=== PATIENT | female | born 1935 | race Caucasian/White ===

== ENCOUNTER 2016-07-28 15:01 | Inpatient (IN) | payer MEDICARE, BC ==
[~2016-07-28] VITALS: Ht 157.5 cm; Wt 51.3 kg
--- NOTE | 2016-07-28 15:31 | ED.ADGEN ---
Past History Past Medical History: Anxiety, Dementia, GERD, Hypertension, UTI, Other Past Surgical History: Other Alcohol Use: None Drug Use: None Adult General HPI HPI Patient is a 81-year-old female presents emergency department for medical clearance prior to admission to the behavioral unit. Patient herself has no medical complaints. Per report, she has had increasingly aggressive and uncooperative behavior at the detention. She is currently being treated for UTI. She has a history of renal insufficiency. She is currently on valproic acid. Review of Systems Review of Systems Constitutional: Denies fever or chills [] Eyes: Denies change in visual acuity, redness, or eye pain [] HENT: Denies nasal congestion or sore throat [] Respiratory: Denies cough or shortness of breath [] Cardiovascular: No additional information not addressed in HPI [] GI: Denies abdominal pain, nausea, vomiting, bloody stools or diarrhea [] : Denies dysuria or hematuria [] Musculoskeletal: Denies back pain or joint pain [] Integument: Denies rash or skin lesions [] Neurologic: Denies headache, focal weakness or sensory changes [] Endocrine: Denies polyuria or polydipsia [] Allergies Allergies Allergies Coded Allergies Type Severity Reaction Last Updated Verified Penicillins Allergy Unknown 07/28/16 Yes Sulfa (Sulfonamide Antibiotics) Allergy Unknown 07/28/16 Yes Physical Exam Physical Exam Constitutional: Well developed, well nourished, no acute distress, non-toxic appearance. [] HENT: Normocephalic, atraumatic, bilateral external ears normal, oropharynx moist, no oral exudates, nose normal. [] Eyes: PERRLA, EOMI, conjunctiva normal, no discharge. [] Neck: Normal range of motion, no tenderness, supple, no stridor. [] Cardiovascular:Heart rate regular rhythm, no murmur [] Lungs & Thorax: Bilateral breath sounds clear to auscultation [] Abdomen: Bowel sounds normal, soft, no tenderness, no masses, no pulsatile masses. [] Skin: Warm, dry, no erythema, no rash. [] Back: No tenderness, no CVA tenderness. [] Extremities: No tenderness, no cyanosis, no clubbing, ROM intact, no edema. [] Neurologic: Alert and oriented X 3, normal motor function, normal sensory function, no focal deficits noted. [] Psychologic: Affect normal, judgement normal, mood normal. [] Current Patient Data Vital Signs Vital Signs Date Time Temp Pulse Resp B/P Pulse Ox O2 Delivery O2 Flow Rate FiO2 07/28/16 15:15 98.7 75 18 97 Room Air Lab Results Laboratory Tests Test 07/28/16 15:35 07/28/16 15:39 07/28/16 15:40 White Blood Count 9.4x10^3/uL (4.0-11.0) Red Blood Count 3.12x10^6/uL (3.50-5.40) L Hemoglobin 9.8g/dL (12.0-15.5) L Hematocrit 29.6% (36.0-47.0) L Mean Corpuscular Volume 95fL (79-100) Mean Corpuscular Hemoglobin 31pg (25-35) Mean Corpuscular Hemoglobin Concent 33g/dL (31-37) Red Cell Distribution Width 13.3% (11.5-14.5) Platelet Count 173x10^3/uL (140-400) Neutrophils (%) (Auto) 64% (31-73) Lymphocytes (%) (Auto) 24% (24-48) Monocytes (%) (Auto) 9% (0-9) Eosinophils (%) (Auto) 3% (0-3) Basophils (%) (Auto) 1% (0-3) Neutrophils # (Auto) 6.0x10^3uL (1.8-7.7) Lymphocytes # (Auto) 2.2x10^3/uL (1.0-4.8) Monocytes # (Auto) 0.8x10^3/uL (0.0-1.1) Eosinophils # (Auto) 0.3x10^3/uL (0.0-0.7) Basophils # (Auto) 0.1x10^3/uL (0.0-0.2) Magnesium Level 1.7mg/dL (1.8-2.4) L Valproic Acid Level < 3mcg/mL (50-100) L Valproic Acid Last Dose Date Unknown Valproic Acid Last Dose Time Unknown POC Hemoglobin 10.2gm/dL POC Hematocrit 30% POC Sodium 132mmol/L (135-145) L POC Potassium 4.0mmol/L (3.5-5.0) POC Chloride 101mmol/L (98-110) POC Total CO2 16mmol/L (23-32) L Anion Gap 20mmol/L (6-14) H POC Blood Urea Nitrogen 43mg/dL (8-26) H POC Creatinine 2.5mg/dL (0.5-1.4) H Glucose Level 75mg/dL (60-99) POC Ionized Calcium (Tari) 1.18mmol/L (1.13-1.32) POC Troponin I 0.01ng/ml (<0.08) EKG EKG EKG interpreted by me, normal sinus rhythm, 60 beats for minute, left axis, no ST segment elevation. [] Radiology/Procedures Radiology/Procedures [] Course & Med Decision Making Course & Med Decision Making Pertinent Labs and Imaging studies reviewed. (See chart for details) The patient's creatinine was about were really expected. Unable to get urine from her while she is here in the department but we do know that she is currently being treated for urinary tract infection. Otherwise, she is cleared medically for admission to the senior behavioral unit. [] Final Impression Final Impression Dementia with behavioral disturbance Urinary tract infection Chronic renal insufficiency [] Problems: Dragon Disclaimer Dragon Disclaimer This electronic medical record was generated, in whole or in part, using a voice recognition dictation system. RICARDO MURCIA MD Jul 28, 2016 15:31
[2016-07-28 15:52] LABS: HEMOGLOBIN ISTAT 10.2 gm/dL
[2016-07-28 16:00] LABS: BASO # 0.1 x10^3/uL (0.0-0.2); BASO % 1 % (0-3); EOS # 0.3 x10^3/uL (0.0-0.7); EOS % 3 % (0-3); HEMATOCRIT 29.6 % (36.0-47.0); HEMOGLOBIN 9.8 g/dL (12.0-15.5); LYMPH # 2.2 x10^3/uL (1.0-4.8); LYMPH % 24 % (24-48); MEAN CORPUSCULAR HEMOGLOBIN 31 pg (25-35); MEAN CORPUSCULAR HGB CONC 33 g/dL (31-37); MEAN CORPUSCULAR VOLUME 95 fL (79-100); MONO # 0.8 x10^3/uL (0.0-1.1); MONO % 9 % (0-9); NEUT % 64 % (31-73); PLATELET COUNT 173 x10^3/uL (140-400); RED BLOOD COUNT 3.12 x10^6/uL (3.50-5.40); RED CELL DISTRIBUTION WIDTH 13.3 % (11.5-14.5); WHITE BLOOD COUNT 9.4 x10^3/uL (4.0-11.0)
[2016-07-28 16:10] LABS: VAL ACID < 3 mcg/mL (50-100)
--- NOTE | 2016-07-28 17:32 | ACF ---
Admission Criteria Forms [facility] Clinical Indications for Admission to Inpatient Care (Place 'X' for any and all applicable criteria): Hospital admission is needed for appropriate care of the patient because of ANY ONE of the following[A] (3)(4)(5): [ ]I. Inpatient behavioral care is needed as indicated by ALL of the following: [ ]a) Treatment is needed because of patient risk due to ANY ONE of the following: [ ]i) Imminent danger to self due to ANY ONE of the following ( 7)(8): [ ]1) Imminent risk for recurrence of a suicide attempt or act of serious self-harm as indicated by ALL of the following: [ ]A. Very recent suicide attempt or deliberate act of serious self-harm [ ]B. Absence of sufficient relief of the action' s precipitants [ ]2) Current plan for suicide or serious self-harm [ ]3) Persistent thoughts of suicide or serious self- harm that cannot be adequately monitored at a lower level of care because of ANY ONE of the following: [ ]A. Insufficient behavioral care provider availability [ ]B. Inadequate patient support system [ ]C. Patient characteristics such as high impulsivity or unreliability [ ]D. Ruminative flooding; uncontrollable and overwhelming profusion of negative thoughts [ ]E. Frantic hopelessness; fatalistic conviction that life will not improve along with oppressive sense of entrapment and doom [ ]F. Active substance use disorder is present [ ]G. Ready access to lethal means is present [ ]ii) Imminent danger to others due to ANY ONE of the following( 10)(11): [ ]1) Imminent risk for recurrence of an attempt to seriously harm another as indicated by ALL of the following: [ ]A. Very recent attempt to seriously harm another [ ]B. Absence of sufficient relief of the action' s precipitants [ ]2) Current plan for homicide or seriously harming another [ ]3) Command auditory hallucination for serious self harm to self or others [ ]4) Persistent thoughts of homicide or seriously harming another that cannot be adequately monitored at a lower level of care because of ANY ONE of the following: [ ]A. Insufficient behavioral care provider availability [ ]B. Inadequate patient support system [ ]C. Patient characteristics such as high impulsivity or unreliability [ ]D. Active substance use disorder is present [ ]E. Ready access to lethal means is present [ ]iii) Behavioral health disorder is present with ALL of the following: (12)(16)(17)(18): [ ]1) Severe psychiatric or behavioral symptoms are present , including ANY ONE of the following: [ ]A. Hallucinations that are very bothersome to patient or are associated with severe pressure to respond to voices(17)(18) [ ]B. Delusions that are very bothersome to patient or are associated with severe pressure to act on beliefs(17)(18) [ ]C. Disorganized speech that is almost impossible to follow(17)(18) [ ]D. Motor behavior that is almost constantly abnormal or bizarre or catatonic(17)(18) [ ]E. Severe negative symptoms (eg, severe decrease in facial expression or self-initiated behavior)(17)(18) [ ]F. Severe chase (eg, daily periods of extensive mood elevation or irritability)(19)(20)(21)(22) [ ]G. Severe depression (eg, daily symptoms of deep hopelessness)[C] [ ]H. Severe anxiety[D] [ ]I. Severe comorbid substance use disorder with inability to control use, intense withdrawal symptoms, or extreme negative impact on primary psychiatric disorder(2)(7)(25) [ ]J. Severe impairment in cognition, memory, judgment, or impulse control(26)(27) [ ]K. Severe impairment in behavior, including physical or verbal aggression, disruptive behaviors, or internal or external anger manifestations (eg, rumination or outbursts)(28) [ ]L. Other psychiatric symptoms which are acute or represent worsening over baseline (eg, hyperactivity, agitation, obsessions, or compulsions)(29)(30)(31) [ ]2) Severe dysfunction in daily living is present as indicated by ANY ONE of the following: [ ]A. Extreme deterioration in social interactions ( eg, threatening behaviors with little or no provocation) [ ]B. Complete withdrawal from all social interactions [ ]C. Complete neglect of self-care with associated impairment in physical status [ ]D. Extreme disruption in vegetative function (eg , life-sustaining functions such as eating) [ ]E. Complete inability to maintain any appropriate aspect of personal responsibility in any adult roles (eg, occupational, parental) [ ]b) Treatment situation and needs are appropriate for level as indicated by ANY ONE of the following(13)(16): [ ]i) Patient unwilling to participate voluntarily and requires treatment (eg, legal commitment) in an involuntary unit [ ]ii) Voluntary treatment at lower level not feasible (e.g., very short-term crisis intervention or residential care unavailable or unacceptable for patient condition) [ ]iii) Need for physical restraint, seclusion, or other involuntary control (e.g., actively violent patient and adequate clinical rapport cannot be established to control violence) (25) [ ]iv) Zlgubj-oel-jeaqz medical or nursing care to address symptoms and initiate intervention is required; specific need has been identified [ ]II. Delirium as described by ANY ONE of the following (26)(27)(28): [ ]a) Delirium due to alcohol or sedative [B] withdrawal (16)(29)(30)( 31) [ ]b) Delirium of uncertain etiology that has not responded to appropriate treatment in emergency department or urgent care setting (32)(33) [ ]c) Delirium that prevents performance of a life-sustaining function (eg, feeding or hydrating oneself) (9) [ ]III. Administration of a somatic treatment that requires mmsiqg-grj-npufn medical or nursing care because of a potential adverse physical effect or medical comorbidity(7) [X]IV. Behavioral Health condition, symptom, or finding for which emergency and observation care have failed or are not considered appropriate The original [facility] Data content created by [email or web address] has been revised. The portions of the content which have been revised are identified through the use of italic text or in bold, and [facility] has neither reviewed nor approved the modified material. All other unmodified content is copyright [facility]. Please see references footnoted in the original [facility] edition 2016 Admission Criteria Met?: Yes BERNIE HOU Jul 28, 2016 17:32
--- NOTE | 2016-07-28 17:49 | EKG ---
[address] [address] Test Date: 2016-07-28 Test Time: 15:20:59 Pat Name: DENYS VALLADARES Department: Room: [address] [place] [address] Gender: F Lead Etl Developer: MATIAS : 1935 Requested By: RICARDO MURCIA Order Number: [id number] Reading MD: Derrick Watkins Measurements Intervals [place] Rate: 68 P: 69 KS: 152 QRS: -26 QRSD: 90 T: 73 QT: 392 QTc: 422 Interpretive Statements SINUS RHYTHM Electronically Signed On 08-05-2016 14:10:34 CDT by Derrick Watkins
[2016-07-28] MEDS ORDERED: LORA2DIS2 TOP ×2 (17:59→18:29)
[2016-07-28] MEDS ORDERED: ESCI10TA PO (17:59)
[2016-07-28] MEDS ORDERED: MELA5TAB PO (17:59)
[2016-07-28] MEDS ORDERED: BUSP10TA PO (17:59)
[2016-07-28] MEDS ORDERED: ASPI-612 PO (18:08)
[2016-07-28] MEDS ORDERED: FAMO20TA5 PO (18:09)
[2016-07-28] MEDS ORDERED: FENT1PAT15 TP (18:10)
[2016-07-28] MEDS ORDERED: LISI10TA2 PO (18:11)
[2016-07-28] MEDS ORDERED: MEGE625O PO (18:19)
--- NOTE | 2016-07-28 18:24 | NUR ---
Pt arrived on the unit at 1630 accompanied by ER nurse and EMS. Pt yelling, screaming, hitting staff, and scratching. Admit assessment unable to be completed. Pt oriented to unit and schedule. Pt offered food and drink but refused.
[2016-07-28] MEDS ORDERED: LOPE2CAP PO (18:28)
[2016-07-28] MEDS ORDERED: ACET500T68 PO (18:30)
[2016-07-28] MEDS ORDERED: TRAM50TA PO (18:32)
[2016-07-28] MEDS ORDERED: NITR100C6 PO (18:42)
[2016-07-28] MEDS ORDERED: HYDR-2758 PO (18:44)
[2016-07-28] MEDS ORDERED: POLY255P PO (18:45)
[2016-07-28] MEDS ORDERED: LOPERAMIDE 2 MG CAPSULE PO PRN (19:00)
[2016-07-28] MEDS ORDERED: METHYL SALICYLATE/MENTHOL TOPICAL OINTMENT 29GM TUBE. TP PRN (19:00)
[2016-07-28] MEDS ORDERED: MAG HYDROX/AL HYDROX/SIMETH 30 ML ORAL.SUSP PO PRN (19:00)
[2016-07-28] MEDS ORDERED: MAGNESIUM HYDROXIDE 2,400 MG/30 ML ORAL.SUSP. PO PRN (19:00)
[2016-07-28 19:47] LABS: ALBUMIN 2.8 g/dL (3.4-5.0); DIRECT BILIRUBIN 0.1 mg/dL (0.0-0.2); TOTAL BILIRUBIN 0.3 mg/dL (0.2-1.0); TOTAL PROTEIN 6.2 g/dL (6.4-8.2)
--- NOTE | 2016-07-28 21:03 | PDOC ---
Exam Luis Eduardo Demential Exam: Luis Eduardo Note: Please also refer to the separate dictated note~for this date of service dictated separately.~Patient seen individually. Discussed the patient with Nursing staff reviewed the chart.~Reviewed interim history and current functioning. Reviewed vital signs,~Labs/ Radiology~and current medications noted below. Continue current treatment with the changes noted in the dictated addendum note Assessment: Vital Signs: Vital Signs Date Time Temp Pulse Resp B/P Pulse Ox O2 Delivery O2 Flow Rate FiO2 07/28/16 15:15 98.7 75 18 97 Room Air Labs: Laboratory Tests Test 07/28/16 15:35 07/28/16 15:39 07/28/16 15:40 White Blood Count 9.4x10^3/uL (4.0-11.0) Red Blood Count 3.12x10^6/uL (3.50-5.40) L Hemoglobin 9.8g/dL (12.0-15.5) L Hematocrit 29.6% (36.0-47.0) L Mean Corpuscular Volume 95fL (79-100) Mean Corpuscular Hemoglobin 31pg (25-35) Mean Corpuscular Hemoglobin Concent 33g/dL (31-37) Red Cell Distribution Width 13.3% (11.5-14.5) Platelet Count 173x10^3/uL (140-400) Neutrophils (%) (Auto) 64% (31-73) Lymphocytes (%) (Auto) 24% (24-48) Monocytes (%) (Auto) 9% (0-9) Eosinophils (%) (Auto) 3% (0-3) Basophils (%) (Auto) 1% (0-3) Neutrophils # (Auto) 6.0x10^3uL (1.8-7.7) Lymphocytes # (Auto) 2.2x10^3/uL (1.0-4.8) Monocytes # (Auto) 0.8x10^3/uL (0.0-1.1) Eosinophils # (Auto) 0.3x10^3/uL (0.0-0.7) Basophils # (Auto) 0.1x10^3/uL (0.0-0.2) Magnesium Level 1.7mg/dL (1.8-2.4) L Total Bilirubin 0.3mg/dL (0.2-1.0) Direct Bilirubin 0.1mg/dL (0.0-0.2) Aspartate Amino Transferase (AST) 16U/L (15-37) Alanine Aminotransferase (ALT) 12U/L (14-59) L Alkaline Phosphatase 71U/L (46-116) Total Protein 6.2g/dL (6.4-8.2) L Albumin 2.8g/dL (3.4-5.0) L Valproic Acid Level < 3mcg/mL (50-100) L Valproic Acid Last Dose Date Unknown Valproic Acid Last Dose Time Unknown POC Hemoglobin 10.2gm/dL POC Hematocrit 30% POC Sodium 132mmol/L (135-145) L POC Potassium 4.0mmol/L (3.5-5.0) POC Chloride 101mmol/L (98-110) POC Total CO2 16mmol/L (23-32) L Anion Gap 20mmol/L (6-14) H POC Blood Urea Nitrogen 43mg/dL (8-26) H POC Creatinine 2.5mg/dL (0.5-1.4) H Glucose Level 75mg/dL (60-99) POC Ionized Calcium (Tari) 1.18mmol/L (1.13-1.32) POC Troponin I 0.01ng/ml (<0.08) Current Medications: Meds: Current Medications Buspirone HCl (Buspar) 10 mg TID PO ; Start 07/28/16 at 21:00 Escitalopram Oxalate (Lexapro) 10 mg DAILY PO ; Start 07/29/16 at 09:00 Non-Formulary Medication 0.5 mg DAILY06 TOP ; Start 07/29/16 at 06:00; Status UNV Melatonin 6 mg PRN QHS PRN PO INSOMNIA; Start 07/28/16 at 19:15 Non-Formulary Medication 0.5 mg Q4HRS PRN TOP ANXIETY / AGITATION; Start at 19:00; Status UNV Multi-Ingredient Ointment (Analgesic [place]) 1 madhu PRN QID PRN TP MUSCLE PAIN; Start 07/28/16 at 19:00 Al Hydroxide/Mg Hydroxide (Mylanta Plus Xs) 15 ml PRN AFTMEALHC PRN PO DYSPEPSIA; Start 07/28/16 at 19:00 Magnesium Hydroxide (Milk Of Magnesia) 2,400 mg PRN QHS PRN PO CONSTIPATION; Start 07/28/16 at 19:00 Acetaminophen (Tylenol) 1,000 mg PRN Q4HRS PRN PO PAIN/ TEMP; Start 07/29/16 at 00:00 Aspirin (Aspirin Enteric Coated) 81 mg DAILY PO ; Start 07/29/16 at 09:00 Famotidine (Pepcid) 20 mg HS PO ; Start 07/28/16 at 21:00 Fentanyl (Duragesic 25mcg/ Hr) 1 patch Q3DAYS TD ; Start 07/31/16 at 09:00 Loperamide HCl (Imodium) 2 mg PRN TID PRN PO DIARRHEA; Start 07/28/16 at 19:00 Polyethylene Glycol (miraLAX) 17 gm PRN DAILY PRN PO CONSTIPATION; Start at 09:00 Tramadol HCl (Ultram) 50 mg TID PRN PRN PO PAIN; Start 07/28/16 at 19:00 Megestrol Acetate (Megace) 625 mg DAILY06 PO ; Start 07/29/16 at 06:00 Active Scripts Active Reported Polyethylene Glycol 3350 255 Gm Powder 17 Gm PO DAILY PRN Hydrocodone-Apap 5-325 (Hydrocodone Bit/Acetaminophen) 1 Each Tablet 1 Tab PO PRN Q4HRS PRN Nitrofurantoin [place]-Mcr 100 Mg (Nitrofurantoin Monohyd/M-Cryst) 100 Mg Capsule 1 Cap PO BID Tramadol Hcl (Tramadol HCl) 50 Mg Tablet 50 Mg PO TID PRN PRN Acetaminophen 500 Mg Tablet 2 Tab PO Q4HRS Lorazepam 2 Mg/1 Ml Disp.syrin 0.5 Mg TOP Q4HRS PRN Loperamide (Loperamide Hcl) 2 Mg Capsule 2 Mg PO TID PRN Megace Es (Megestrol Acetate) 625 Mg/5 Ml Oral.susp 625 Mg PO DAILY06 Lisinopril 10 Mg Tablet 10 Mg PO DAILY FENTANYL 25mcg/hr (Fentanyl) 1 Each Patch.td72 1 Patch TP Q3DAYS Famotidine 20 Mg Tablet 20 Mg PO HS Aspirin Ec (Aspirin) 81 Mg Tablet.dr 1 Tab PO DAILY Melatonin 5 Mg Tablet 5 Mg PO HS Lorazepam 2 Mg/1 Ml Disp.syrin 0.5 Mg TOP DAILY06 Escitalopram Oxalate 10 Mg Tablet 1 Tab PO DAILY Buspirone Hcl 10 Mg Tablet 1 Tab PO TID Diagnosis: Problems: (1) UTI (urinary tract infection) (2) Chronic renal insufficiency (3) Dementia with behavioral disturbance DEISY MCNEIL MD Jul 28, 2016 21:03
[2016-07-28] MEDS: traMADol 50 MG TABLET PO PRN (21:18)
[2016-07-28] MEDS: MELATONIN 3 MG TABLET PO PRN (21:19)
[2016-07-28] MEDS: busPIRone 10 MG TABLET. PO SCH (21:19)
[2016-07-28] MEDS: FAMOTIDINE 20 MG TABLET PO SCH (21:19)
[2016-07-28 22:13] VITALS: BP 191/84
--- NOTE | 2016-07-28 22:31 | NUR ---
Behavior Intervention Response and Plan: BIRP Note: Behavior: Assumed Care of patient, patient located in Bed at shift change. Patient exhibited the following behavior Restless, Non Compliant, Anxious. Brief assessment on rounds of vital signs, medication needs, lab studies, and pain. Treatment plan problems 1,2. Intervention: Patient assessed and the following interventions initiated safety checks 15 Minute Checks Head to toe Assessment , Medications , Oral Hydration. Response: After interactions and interventions patient responded in the following manner, Resistive , Somatic ,Resistive. Continue to assess behaviors and condition will continue to monitor throughout the shift as needed. Plan: Continue to monitor Master Treatment Plan for patient's progress toward short term goals of Decreased Agitation, Decreased anxiety, oil heaterman goals to return to previous living setting vs placement. Continue to assess patient for changes in above assessment. Monitor for medication needs, pain, and safety concerns. Hourly rounding performed to ensure safe environment.
--- NOTE | 2016-07-28 22:41 | HP ---
ADMIT DATE: 07/28/2016 PSYCHIATRIC ADMISSION HISTORY/EVALUATION IDENTIFYING DATA: The patient is an 81-year-old female referred to us from [facility], [place], [place] by Dr. Mistry, her primary care physician after the staff had called me 3 or 4 times earlier today from [facility] consequent to the patient's increased agitation, anxiety, irritability, mood lability, crying, screaming for hours, especially after cares. She was combative, refusing medications, and failed outpatient treatment for psychiatric instability resulting in this referral. The patient seen individually, discussed with nursing staff, reviewed the chart. CHIEF COMPLAINT: "I have been here 3 days." The patient just arrived earlier today. HISTORY OF PRESENT ILLNESS: The patient has a history of dementia, Alzheimer's vascular type. She has been residing at the above snf. Over the past few days, she has been increasingly agitated, paranoid, psychotic, anxious, more so in the morning. All attempts by nursing staff have failed including adjustments of her psychotropics. She has had sleep and appetite changes. No active suicidal or homicidal ideation. Confusion and memory deficits have persisted or even worsened recently with the increased anxiety, psychosis, and mood lability. No clear history of bipolar disorder. PAST PSYCHIATRIC HISTORY: As above. PAST MEDICAL HISTORY: The patient was seen at the [facility] Emergency Room prior to this admission by Dr. Mercado. She does have an UTI and notation for chronic renal insufficiency. Additionally, she has a history of GERD, acute kidney insufficiency, weakness, spondylosis, hypertension. ALLERGIES: PENICILLIN, SULFA. CURRENT PSYCHOTROPICS: She has been noncompliant with her medications, but is on Ativan 0.5 mg topically daily plus p.r.n., melatonin 6 mg at bedtime p.r.n., Lexapro 10 mg a day, BuSpar 10 mg 3 times a day, and Megace for appetite stimulation. CODE STATUS: She is a full code. FAMILY HISTORY: Noncontributory. SOCIAL HISTORY: No history of alcohol, drug abuse, physical, sexual or elder abuse. She is not known to be a perpetrator. MENTAL STATUS EXAMINATION: The patient was seen individually the evening of 07/28/2016 in her room. She is lying in bed, oriented to herself. She said she lives in [place], but felt she lived at her home and has been here for about 3 days as she was admitted in the past couple of hours. Speech is coherent. Insight, judgment, recent and remote memory, attention, concentration, fund of knowledge poor, consistent with her diagnosis. VITAL SIGNS: Temperature 98.7, pulse 75, BP unremarkable, respirations 18, O2 sat is 97% room air. REVIEW OF SYSTEMS: Ambulation impaired. No CV, , pulmonary, eye, ENT system symptoms on review. IMPRESSION: Major neurocognitive disorder, Alzheimer, vascular with depression, delusion, behavioral disturbance; anxiety disorder, unspecified; impulse control disorder, unspecified; urinary tract infection. Rest diagnosis as mentioned above. PLAN: Admit to the geropsychiatry unit at [facility]. I will see the patient daily individually from a psychiatric standpoint. Medical followup with Dr. Gonzalez/Dr. Arauz. Treat the UTI. Continue current psychotropics, observe the patient's baseline, then adjust psychotropics as clinically indicated. DEISY MCNEIL MD DR: MARIVEL/yazmin JOB#: [id number] / [id number]
[2016-07-29] MEDS ORDERED: ACETAMINOPHEN 500 MG TABLET PO PRN
[2016-07-29] MEDS: MEGESTROL 400 MG/10 ML ORAL.SUSP. PO SCH ×2 (05:10→07:27)
[2016-07-29 05:43] VITALS: BP 148/68
[2016-07-29] MEDS ORDERED: LORAZEPAM 0.5 MG TOP SCH (06:00)
[2016-07-29 06:52] LABS: BASO # 0.1 x10^3/uL (0.0-0.2); BASO % 1 % (0-3); EOS # 0.2 x10^3/uL (0.0-0.7); EOS % 3 % (0-3); HEMATOCRIT 30.5 % (36.0-47.0); HEMOGLOBIN 10.3 g/dL (12.0-15.5); LYMPH # 1.8 x10^3/uL (1.0-4.8); LYMPH % 22 % (24-48); MEAN CORPUSCULAR HEMOGLOBIN 32 pg (25-35); MEAN CORPUSCULAR HGB CONC 34 g/dL (31-37); MEAN CORPUSCULAR VOLUME 94 fL (79-100); MONO # 0.6 x10^3/uL (0.0-1.1); MONO % 7 % (0-9); NEUT # 5.4 x10^3uL (1.8-7.7); NEUT % 67 % (31-73); PLATELET COUNT 166 x10^3/uL (140-400); RED BLOOD COUNT 3.26 x10^6/uL (3.50-5.40); RED CELL DISTRIBUTION WIDTH 13.2 % (11.5-14.5)
[2016-07-29 07:04] LABS: ALBUMIN 2.7 g/dL (3.4-5.0); ALBUMIN/GLOBULIN RATIO 0.8 (1.0-1.7); CALCIUM 8.8 mg/dL (8.5-10.1); CREATININE 2.5 mg/dL (0.6-1.0); GFR 18.4; MAGNESIUM 1.9 mg/dL (1.8-2.4); POTASSIUM 5.5 mmol/L (3.5-5.1); TOTAL BILIRUBIN 0.4 mg/dL (0.2-1.0); TOTAL PROTEIN 6.1 g/dL (6.4-8.2)
[2016-07-29] MEDS ORDERED: LORazepam TOPICAL 0.5 MG/ML GEL TP PRN (08:15)
[2016-07-29] MEDS: busPIRone 10 MG TABLET. PO SCH ×3 (08:55→19:35)
[2016-07-29] MEDS: ASPIRIN ENTERIC COATED 81 MG TABLET.DR. PO SCH (08:55)
[2016-07-29] MEDS ORDERED: ESCITALOPRAM 10 MG TABLET. PO SCH (09:00)
[2016-07-29] MEDS ORDERED: POLYETHYLENE GLYCOL 3350 17 GM PACKET. PO PRN (09:00)
[2016-07-29] MEDS: traMADol 50 MG TABLET PO PRN ×2 (10:39→14:30)
--- NOTE | 2016-07-29 10:47 | NUR ---
Patient refused breakfast. She became combative with staff and scratched staff when vital signs were obtained. VS 90/57, pulse 80, RR 20. Patient uncooperative with assessment. She continues to clutch her chest and scream, "Oh God please." She refuses to answer any other questions. Patient was given Ativan 0.5mg and Ultram 50mg at approximately 1045. She has difficulty taking medication even when crushed in pudding. Will continue to monitor closely on 15 minute safety checks.
--- NOTE | 2016-07-29 11:15 | NUR ---
THERAPEUTIC RECREATION GROUP NOTE TITLE :Movement to Music: Flexibility ACTIVITY : Movement/ Exercise GOAL : Increase morale, attention, flexibility. Decrease stress/anxiety. DURATION : 45 Minutes RESPONSE : No participation.
--- NOTE | 2016-07-29 14:20 | NUR ---
THERAPEUTIC RECREATION GROUP NOTE TITLE :Beach Ball Bop ACTIVITY : Exercise and Movement GOAL : Increase alertness/ arousal, endurance/strength, and social interaction. DURATION : 60 Minutes RESPONSE : No participation.
[2016-07-29] MEDS: LORazepam 0.5 MG TABLET PO PRN ×2 (15:01→19:34)
--- NOTE | 2016-07-29 15:30 | NUR ---
Patient calmed down after Ativan and Ultram administration this morning. She ate 75% of lunch and drank two gatorades and all of the fluids provided on her tray. Patient was able to state her name and smiled pleasantly at staff. She stated that she was not in any pain. At approximately 1515, patient began to yell, "Oh God, please help me," repeatedly. Patient stated that her back and stomach were hurting. She was assisted in toileting and had a small formed bowel movement and approximately 5 cc of urine output. She continued to grimace and yell, "Oh God please help me," and refused to answer any other questions. Patient was given Ativan 0.5mg and Ultram 50mg. She continues to state, "Please leave me alone, please leave me alone," although no one else is in the hallway. We will continue on 15 minute safety checks.
[2016-07-29 15:37] LABS: THYROID STIM HORMONE (TSH) 1.252 uIU/mL (0.358-3.740)
--- NOTE | 2016-07-29 18:34 | HP ---
ADMIT DATE: 07/28/2016 REASON FOR ADMISSION TO SENIOR BEHAVIORAL UNIT: This is an 81-year-old female who after chart review reveals that she has been crying and screaming and refusing care, has been refusing her medications for at least a month. She has not been wanting to be change after being incontinent and has been crying and screaming for hours like it is atraumatic. The patient had been placed in a Broda chair here and is very jumpy. PAST MEDICAL HISTORY: 1. Currently completing 10 days of Macrobid for urinary tract infection. 2. Weakness, falls, weight loss, anxiety, GERD, acute renal insufficiency, hypertension, dementia with behavior disturbance. ALLERGIES: PENICILLIN and SULFA. MEDICATIONS: Pertinent medication information. The patient was started on BuSpar on 05/01/2016, 10 mg 3 times a day. Her Depakote which was discontinued on 07/14/2016, she had been on 125 b.i.d. since 06/12/2016. The patient's fentanyl patch was increased on 07/22/2016 to 25 mcg per hour. She was started on escitalopram 10 mg on 06/09/2016 also Megace 625 mg on 07/09/2016. She also completed 3 days of Diflucan. SOCIAL HISTORY: The patient was never , does not smoke. The patient follows regular diet functionality according to ____ notes in 04/2016 the patient was ambulatory, but at that time was started on BuSpar 3 times a day. REVIEW OF SYSTEMS: The patient unable to say. OBJECTIVE: VITAL SIGNS: Blood pressure 148/68, pulse 68, respirations 22, pulse ox 98% on room air, temperature 96.9. Height 62 inches, weight 115 pounds, BMI 21. GENERAL: An 81-year-old who is in moderate emotional distress. She seems chilled requesting another blanket, is very jumpy, does not like to be touch. She was fairly cooperative with the exam and would do a few things for me. HEENT: Her eyes are clear. Nose was patent. Her throat was clear. Her tongue was moist. NECK: Supple. LUNGS: Clear. CARDIOVASCULAR: Regular rhythm and rate. ABDOMEN: Soft. It was nontender, but she jumped when I palpated her abdomen. EXTREMITIES: Without edema. Her gait was not examined. NEUROLOGIC: Her mood is very nervous and jumpy and earlier she was screaming after having to be changed. She did receive some lorazepam. LABORATORY DATA: Her hemoglobin was 10.3 and hematocrit is 30.5. Chemistry: Sodium 132, potassium was 4 yesterday it is 5.5 today. BUN 45, creatinine 2.5, albumin was 2.7, magnesium was 1.9. As stated urinalysis from 07/14/2016 shows greater than 100,000 E. coli sensitive to Macrodantin. ASSESSMENT: 1. Altered mental status, questionable traumatic emotional issues unknown to us. 2. Multiple medication changes. 3. Weight loss 4. Hypertension. 5. Fall risk. 6. Urinary tract infection. 7. Anxiety. PLAN: Megace will be discontinued for now. Her Macrobid is completed must monitor for signs of adrenal insufficiency as Megace is being discontinued. She needs fluids, which she did have at lunch. We will recheck her labs in the morning. SHAWNA JAMES DO DR: YUNIOR/yazmin JOB#: [id number] / [id number]
[2016-07-29] MEDS: MELATONIN 3 MG TABLET PO PRN (19:34)
[2016-07-29] MEDS: FAMOTIDINE 20 MG TABLET PO SCH (19:35)
--- NOTE | 2016-07-29 20:25 | NUR ---
Behavior Intervention Response and Plan: BIRP Note: Behavior: Assumed Care of patient, patient located in Patient Room at shift change. Patient exhibited the following behavior Restless, Anxious, Agitated. Brief assessment on rounds of vital signs, medication needs, lab studies, and pain. Treatment plan problems 1-3. Intervention: Patient assessed and the following interventions initiated safety checks 15 Minute Checks Head to toe Assessment , Medications , ADL's. Response: After interactions and interventions patient responded in the following manner, Compliant , Irritable ,Anxious. Continue to assess behaviors and condition will continue to monitor throughout the shift as needed. Plan: Continue to monitor Master Treatment Plan for patient's progress toward short term goals of Decreased Anxiety, Decreased Agitation, care home goals to return to previous living setting vs placement. Continue to assess patient for changes in above assessment. Monitor for medication needs, pain, and safety concerns. Hourly rounding performed to ensure safe environment.
--- NOTE | 2016-07-29 21:05 | PDOC ---
Exam Luis Eduardo Demential Exam: Luis Eduardo Note: Please also refer to the separate dictated note~for this date of service dictated separately.~Patient seen individually. Discussed the patient with Nursing staff reviewed the chart.~Reviewed interim history and current functioning. Reviewed vital signs,~Labs/ Radiology~and current medications noted below. Continue current treatment with the changes noted in the dictated addendum note Assessment: Vital Signs: Vital Signs Date Time Temp Pulse Resp B/P Pulse Ox O2 Delivery O2 Flow Rate FiO2 07/29/16 19:35 18 Room Air 07/29/16 05:43 96.9 68 148/68 98 I&O Intake and Output 07/29/16 07:00 Intake Total 120 ml Balance 120 ml Intake Oral 120 ml # Voids 2 Labs: Laboratory Tests Test 07/29/16 06:40 White Blood Count 8.0x10^3/uL (4.0-11.0) Red Blood Count 3.26x10^6/uL (3.50-5.40) L Hemoglobin 10.3g/dL (12.0-15.5) L Hematocrit 30.5% (36.0-47.0) L Mean Corpuscular Volume 94fL (79-100) Mean Corpuscular Hemoglobin 32pg (25-35) Mean Corpuscular Hemoglobin Concent 34g/dL (31-37) Red Cell Distribution Width 13.2% (11.5-14.5) Platelet Count 166x10^3/uL (140-400) Neutrophils (%) (Auto) 67% (31-73) Lymphocytes (%) (Auto) 22% (24-48) L Monocytes (%) (Auto) 7% (0-9) Eosinophils (%) (Auto) 3% (0-3) Basophils (%) (Auto) 1% (0-3) Neutrophils # (Auto) 5.4x10^3uL (1.8-7.7) Lymphocytes # (Auto) 1.8x10^3/uL (1.0-4.8) Monocytes # (Auto) 0.6x10^3/uL (0.0-1.1) Eosinophils # (Auto) 0.2x10^3/uL (0.0-0.7) Basophils # (Auto) 0.1x10^3/uL (0.0-0.2) Sodium Level 132mmol/L (136-145) L Potassium Level 5.5mmol/L (3.5-5.1) H Chloride Level 104mmol/L (98-107) Carbon Dioxide Level 23mmol/L (21-32) Anion Gap 5 (6-14) L Blood Urea Nitrogen 45mg/dL (7-20) H Creatinine 2.5mg/dL (0.6-1.0) H Estimated GFR (Cockcroft-Gault) 18.4 BUN/Creatinine Ratio 18 (6-20) Glucose Level 88mg/dL (70-99) Calcium Level 8.8mg/dL (8.5-10.1) Magnesium Level 1.9mg/dL (1.8-2.4) Total Bilirubin 0.4mg/dL (0.2-1.0) Aspartate Amino Transferase (AST) 15U/L (15-37) Alanine Aminotransferase (ALT) 10U/L (14-59) L Alkaline Phosphatase 68U/L (46-116) Total Protein 6.1g/dL (6.4-8.2) L Albumin 2.7g/dL (3.4-5.0) L Albumin/Globulin Ratio 0.8 (1.0-1.7) L Current Medications: Meds: Current Medications Buspirone HCl (Buspar) 10 mg TID PO Last administered on 07/29/16 19:35; Start 07/28/16 at 21:00 Escitalopram Oxalate (Lexapro) 10 mg DAILY PO Last administered on 07/29/16 08 :55; Start 07/29/16 at 09:00; Stop 07/29/16 at 18:02; Status DC Non-Formulary Medication 0.5 mg DAILY06 TOP ; Start 07/29/16 at 06:00; Stop at 08:00; Status DC Melatonin 6 mg PRN QHS PRN PO INSOMNIA Last administered on 07/29/16 19:34; Start 07/28/16 at 19:15 Lorazepam (Ativan) 0.5 mg PRN Q4HRS PRN TP ANXIETY / AGITATION Last administered on 07/29/16 10:39; Start 07/29/16 at 08:15; Stop 07/29/16 at 15:17 ; Status DC Multi-Ingredient Ointment (Analgesic [place]) 1 madhu PRN QID PRN TP MUSCLE PAIN; Start 07/28/16 at 19:00 Al Hydroxide/Mg Hydroxide (Mylanta Plus Xs) 15 ml PRN AFTMEALHC PRN PO DYSPEPSIA; Start 07/28/16 at 19:00 Magnesium Hydroxide (Milk Of Magnesia) 2,400 mg PRN QHS PRN PO CONSTIPATION; Start 07/28/16 at 19:00 Acetaminophen (Tylenol) 1,000 mg PRN Q4HRS PRN PO PAIN/ TEMP; Start 07/29/16 at 00:00; Stop 07/29/16 at 10:11; Status DC Aspirin (Aspirin Enteric Coated) 81 mg DAILY PO Last administered on 07/29/16 08:55; Start 07/29/16 at 09:00 Famotidine (Pepcid) 20 mg HS PO Last administered on 07/29/16 19:35; Start at 21:00 Fentanyl (Duragesic 25mcg/ Hr) 1 patch Q3DAYS TD ; Start 07/31/16 at 09:00 Loperamide HCl (Imodium) 2 mg PRN TID PRN PO DIARRHEA; Start 07/28/16 at 19:00 Polyethylene Glycol (miraLAX) 17 gm PRN DAILY PRN PO CONSTIPATION; Start at 09:00 Tramadol HCl (Ultram) 50 mg TID PRN PRN PO PAIN Last administered on 07/29/16 14:30; Start 07/28/16 at 19:00 Megestrol Acetate (Megace) 625 mg DAILY06 PO Last administered on 07/29/16 05: 10; Start 07/29/16 at 06:00 Lorazepam (Ativan) 0.5 mg DAILY06 TP ; Start 07/30/16 at 06:00 Acetaminophen (Tylenol) 1,000 mg Q8HRS PRN PO PAIN/ TEMP; Start 07/29/16 at 14: 00 Lorazepam (Ativan) 0.5 mg PRN Q4HRS PRN PO ANXIETY / AGITATION Last administered on 07/29/16 19:34; Start 07/29/16 at 15:00 Duloxetine HCl (Cymbalta) 30 mg DAILY PO ; Start 07/30/16 at 09:00 Quetiapine Fumarate (SEROquel) 12.5 mg BID92 PO ; Start 07/30/16 at 09:00 Active Scripts Active Reported Polyethylene Glycol 3350 255 Gm Powder 17 Gm PO DAILY PRN Hydrocodone-Apap 5-325 (Hydrocodone Bit/Acetaminophen) 1 Each Tablet 1 Tab PO PRN Q4HRS PRN Nitrofurantoin [place]-Mcr 100 Mg (Nitrofurantoin Monohyd/M-Cryst) 100 Mg Capsule 1 Cap PO BID Tramadol Hcl (Tramadol HCl) 50 Mg Tablet 50 Mg PO TID PRN PRN Acetaminophen 500 Mg Tablet 2 Tab PO Q4HRS Lorazepam 2 Mg/1 Ml Disp.syrin 0.5 Mg TOP Q4HRS PRN Loperamide (Loperamide Hcl) 2 Mg Capsule 2 Mg PO TID PRN Megace Es (Megestrol Acetate) 625 Mg/5 Ml Oral.susp 625 Mg PO DAILY06 Lisinopril 10 Mg Tablet 10 Mg PO DAILY FENTANYL 25mcg/hr (Fentanyl) 1 Each Patch.td72 1 Patch TP Q3DAYS Famotidine 20 Mg Tablet 20 Mg PO HS Aspirin Ec (Aspirin) 81 Mg Tablet.dr 1 Tab PO DAILY Melatonin 5 Mg Tablet 5 Mg PO HS Lorazepam 2 Mg/1 Ml Disp.syrin 0.5 Mg TOP DAILY06 Escitalopram Oxalate 10 Mg Tablet 1 Tab PO DAILY Buspirone Hcl 10 Mg Tablet 1 Tab PO TID Diagnosis: Problems: (1) UTI (urinary tract infection) (2) Chronic renal insufficiency (3) Dementia with behavioral disturbance DEISY MCNEIL MD Jul 29, 2016 21:05
[2016-07-30 03:10] LABS: HEMOGLOBIN A1C 5.1 % (4.8-5.6)
[2016-07-30] MEDS: LORazepam TOPICAL 0.5 MG/ML GEL TP SCH (05:09)
[2016-07-30] MEDS: MEGESTROL 400 MG/10 ML ORAL.SUSP. PO SCH (05:10)
[2016-07-30] MEDS: traMADol 50 MG TABLET PO PRN (05:11)
[2016-07-30 06:40] LABS: BASO # 0.1 x10^3/uL (0.0-0.2); BASO % 1 % (0-3); EOS # 0.2 x10^3/uL (0.0-0.7); EOS % 3 % (0-3); HEMATOCRIT 30.1 % (36.0-47.0); HEMOGLOBIN 10.1 g/dL (12.0-15.5); LYMPH # 2.1 x10^3/uL (1.0-4.8); LYMPH % 26 % (24-48); MEAN CORPUSCULAR HEMOGLOBIN 32 pg (25-35); MEAN CORPUSCULAR HGB CONC 34 g/dL (31-37); MEAN CORPUSCULAR VOLUME 94 fL (79-100); MONO # 0.7 x10^3/uL (0.0-1.1); MONO % 8 % (0-9); NEUT % 62 % (31-73); PLATELET COUNT 159 x10^3/uL (140-400); RED BLOOD COUNT 3.19 x10^6/uL (3.50-5.40)
[2016-07-30 06:47] LABS: ALBUMIN 2.9 g/dL (3.4-5.0); ALBUMIN/GLOBULIN RATIO 0.8 (1.0-1.7); CALCIUM 8.8 mg/dL (8.5-10.1); CREATININE 2.5 mg/dL (0.6-1.0); GFR 18.4; MAGNESIUM 1.8 mg/dL (1.8-2.4); POTASSIUM 5.2 mmol/L (3.5-5.1); TOTAL BILIRUBIN 0.4 mg/dL (0.2-1.0); TOTAL PROTEIN 6.4 g/dL (6.4-8.2)
[2016-07-30 07:13] LABS: T3 TOTAL 45 ng/dL (71-180); THYROXINE 6.7 ug/dL (4.5-12.0)
[2016-07-30 07:16] VITALS: BP 182/63
[2016-07-30] MEDS: QUEtiapine 25 MG TABLET. PO SCH ×2 (09:00→12:03)
[2016-07-30] MEDS: busPIRone 10 MG TABLET. PO SCH ×3 (09:00→21:01)
[2016-07-30] MEDS: DULoxetine HCL 30 MG CAPSULE.DR PO SCH (09:00)
[2016-07-30] MEDS: ASPIRIN ENTERIC COATED 81 MG TABLET.DR. PO SCH (09:00)
--- NOTE | 2016-07-30 09:51 | NUR ---
Behavior Intervention Response and Plan: BIRP Note: Behavior: Assumed Care of patient, patient located in Patient Room at shift change. Patient exhibited the following behavior Sleeping, Calm, Disorganized. Brief assessment on rounds of vital signs, medication needs, lab studies, and pain. Treatment plan problems . Intervention: Patient assessed and the following interventions initiated safety checks 15 Minute Checks Cognitive Assessment , Head to toe Assessment , Medications. Response: After interactions and interventions patient responded in the following manner, Disorganized , Calm ,Compliant. Continue to assess behaviors and condition will continue to monitor throughout the shift as needed. Plan: Continue to monitor Master Treatment Plan for patient's progress toward short term goals of Decreased Agitation, Decreased Anxiety, tank terminal gauger goals to return to previous living setting vs placement. Continue to assess patient for changes in above assessment. Monitor for medication needs, pain, and safety concerns. Hourly rounding performed to ensure safe environment.
[2016-07-30 14:35] VITALS: BP 82/42
--- NOTE | 2016-07-30 14:45 | NUR ---
pt up in broda until after therapy then placed in wc. not eating or drinking well. startles easily. spilled boost. pt became more lethargic. responds to painful stimuli. call to dr stout. MVI bolus bag started. iv started R wrist by Mj Gale RN. 2 other attempts by this nurse. pt placed in Trendelenburg position. pt more verbal with moving.
[2016-07-30] MEDS ORDERED: MVI, ADULT NO.4 WITH VIT K 10 ML, FOLIC ACID SYRINGE for ER 1 MG, THIAMINE 100 MG in IV... IV ONE ×4 (15:00)
--- NOTE | 2016-07-30 16:07 | NUR ---
pt more alert. yelling out with cares. no void this shift. informed dr stout. bladder scanned for 215. order recieved to place rooney if >300cc. BP slightly better.
[2016-07-30 16:18] VITALS: BP 98/56
[2016-07-30] MEDS ORDERED: IV NORMAL SALINE 1,000ML 1,000 ML IV ONE (17:00)
[2016-07-30 19:31] LABS: BILIRUBIN,URINE NEG (NEG); CLARITY,URINE CLOUDY; COLOR,URINE YELLOW; GLUCOSE,URINE NEG (NEG); NITRITE,URINE POS (NEG); RBC,URINE RARE /HPF (0-2); UROBILINOGEN,URINE 0.2 mg/dL (0.2 mg/dL); WBC,URINE >40 /HPF (0-4)
[2016-07-30 19:32] LABS: BACTERIA,URINE MANY /HPF (0-FEW)
[2016-07-30 20:50] LABS: CALCIUM 8.1 mg/dL (8.5-10.1); CREATININE 2.3 mg/dL (0.6-1.0); GFR 20.3; POTASSIUM 5.5 mmol/L (3.5-5.1)
[2016-07-30] MEDS: FAMOTIDINE 20 MG TABLET PO SCH (21:01)
[2016-07-30] MEDS: ACETAMINOPHEN 500 MG TABLET PO PRN (21:02)
--- NOTE | 2016-07-30 21:04 | PDOC ---
Exam Luis Eduardo Demential Exam: Luis Eduardo Note: Please also refer to the separate dictated note~for this date of service dictated separately.~Patient seen individually. Discussed the patient with Nursing staff reviewed the chart.~Reviewed interim history and current functioning. Reviewed vital signs,~Labs/ Radiology~and current medications noted below. Continue current treatment with the changes noted in the dictated addendum note Assessment: Vital Signs: Vital Signs Date Time Temp Pulse Resp B/P Pulse Ox O2 Delivery O2 Flow Rate FiO2 07/30/16 16:18 98.0 98 20 98/56 97 07/30/16 06:15 Room Air I&O Intake and Output 07/30/16 07:00 Intake Total 720 ml Balance 720 ml Intake Oral 720 ml # Voids 1 Labs: Laboratory Tests Test 07/30/16 06:06 07/30/16 17:35 07/30/16 20:00 White Blood Count 8.0x10^3/uL (4.0-11.0) Red Blood Count 3.19x10^6/uL (3.50-5.40) L Hemoglobin 10.1g/dL (12.0-15.5) L Hematocrit 30.1% (36.0-47.0) L Mean Corpuscular Volume 94fL (79-100) Mean Corpuscular Hemoglobin 32pg (25-35) Mean Corpuscular Hemoglobin Concent 34g/dL (31-37) Red Cell Distribution Width 13.0% (11.5-14.5) Platelet Count 159x10^3/uL (140-400) Neutrophils (%) (Auto) 62% (31-73) Lymphocytes (%) (Auto) 26% (24-48) Monocytes (%) (Auto) 8% (0-9) Eosinophils (%) (Auto) 3% (0-3) Basophils (%) (Auto) 1% (0-3) Neutrophils # (Auto) 5.0x10^3uL (1.8-7.7) Lymphocytes # (Auto) 2.1x10^3/uL (1.0-4.8) Monocytes # (Auto) 0.7x10^3/uL (0.0-1.1) Eosinophils # (Auto) 0.2x10^3/uL (0.0-0.7) Basophils # (Auto) 0.1x10^3/uL (0.0-0.2) Sodium Level 135mmol/L (136-145) L 134mmol/L (136-145) L Potassium Level 5.2mmol/L (3.5-5.1) H 5.5mmol/L (3.5-5.1) H Chloride Level 105mmol/L (98-107) 106mmol/L (98-107) Carbon Dioxide Level 23mmol/L (21-32) 21mmol/L (21-32) Anion Gap 7 (6-14) 7 (6-14) Blood Urea Nitrogen 41mg/dL (7-20) H 43mg/dL (7-20) H Creatinine 2.5mg/dL (0.6-1.0) H 2.3mg/dL (0.6-1.0) H Estimated GFR (Cockcroft-Gault) 18.4 20.3 BUN/Creatinine Ratio 16 (6-20) Glucose Level 82mg/dL (70-99) 88mg/dL (70-99) Calcium Level 8.8mg/dL (8.5-10.1) 8.1mg/dL (8.5-10.1) L Magnesium Level 1.8mg/dL (1.8-2.4) Total Bilirubin 0.4mg/dL (0.2-1.0) Aspartate Amino Transferase (AST) 16U/L (15-37) Alanine Aminotransferase (ALT) 13U/L (14-59) L Alkaline Phosphatase 72U/L (46-116) Total Protein 6.4g/dL (6.4-8.2) Albumin 2.9g/dL (3.4-5.0) L Albumin/Globulin Ratio 0.8 (1.0-1.7) L Urine Collection Type U cath Urine Color Yellow Urine Clarity Cloudy Urine pH 5.5 Urine Specific [place] 1.010 Urine Protein 30 mg/dl (NEG-TRACE) Urine Glucose (UA) Negmg/dL (NEG) Urine Ketones (Stick) Negmg/dL (NEG) Urine Blood Small (NEG) Urine Nitrite Pos (NEG) Urine Bilirubin Neg (NEG) Urine Urobilinogen Dipstick 0.2mg/dL (0.2 mg/dL) Urine Leukocyte Esterase Large (NEG) Urine RBC Rare/HPF (0-2) Urine WBC >40/HPF (0-4) Urine Squamous Epithelial Cells None/LPF Urine Bacteria Many/HPF (0-FEW) Current Medications: Meds: Current Medications Buspirone HCl (Buspar) 10 mg TID PO Last administered on 07/30/16 21:01; Start 07/28/16 at 21:00 Escitalopram Oxalate (Lexapro) 10 mg DAILY PO Last administered on 07/29/16 08 :55; Start 07/29/16 at 09:00; Stop 07/29/16 at 18:02; Status DC Non-Formulary Medication 0.5 mg DAILY06 TOP ; Start 07/29/16 at 06:00; Stop at 08:00; Status DC Melatonin 6 mg PRN QHS PRN PO INSOMNIA Last administered on 07/29/16 19:34; Start 07/28/16 at 19:15 Lorazepam (Ativan) 0.5 mg PRN Q4HRS PRN TP ANXIETY / AGITATION Last administered on 07/29/16 10:39; Start 07/29/16 at 08:15; Stop 07/29/16 at 15:17 ; Status DC Multi-Ingredient Ointment (Analgesic [place]) 1 madhu PRN QID PRN TP MUSCLE PAIN; Start 07/28/16 at 19:00 Al Hydroxide/Mg Hydroxide (Mylanta Plus Xs) 15 ml PRN AFTMEALHC PRN PO DYSPEPSIA; Start 07/28/16 at 19:00 Magnesium Hydroxide (Milk Of Magnesia) 2,400 mg PRN QHS PRN PO CONSTIPATION; Start 07/28/16 at 19:00 Acetaminophen (Tylenol) 1,000 mg PRN Q4HRS PRN PO PAIN/ TEMP; Start 07/29/16 at 00:00; Stop 07/29/16 at 10:11; Status DC Aspirin (Aspirin Enteric Coated) 81 mg DAILY PO Last administered on 07/30/16 09:00; Start 07/29/16 at 09:00 Famotidine (Pepcid) 20 mg HS PO Last administered on 07/30/16 21:01; Start at 21:00 Fentanyl (Duragesic 25mcg/ Hr) 1 patch Q3DAYS TD ; Start 07/31/16 at 09:00 Loperamide HCl (Imodium) 2 mg PRN TID PRN PO DIARRHEA; Start 07/28/16 at 19:00 Polyethylene Glycol (miraLAX) 17 gm PRN DAILY PRN PO CONSTIPATION; Start at 09:00 Tramadol HCl (Ultram) 50 mg TID PRN PRN PO PAIN Last administered on 07/30/16 05:11; Start 07/28/16 at 19:00 Megestrol Acetate (Megace) 625 mg DAILY06 PO Last administered on 07/30/16 05: 10; Start 07/29/16 at 06:00; Stop 07/30/16 at 14:13; Status DC Lorazepam (Ativan) 0.5 mg DAILY06 TP ; Start 07/30/16 at 06:00 Acetaminophen (Tylenol) 1,000 mg Q8HRS PRN PO PAIN/ TEMP Last administered on 21:02; Start 07/29/16 at 14:00 Lorazepam (Ativan) 0.5 mg PRN Q4HRS PRN PO ANXIETY / AGITATION Last administered on 07/29/16 19:34; Start 07/29/16 at 15:00 Duloxetine HCl (Cymbalta) 30 mg DAILY PO Last administered on 07/30/16 09:00; Start 07/30/16 at 09:00 Quetiapine Fumarate 12.5 mg 12.5 mg BID92 PO Last administered on 07/30/16 12: 03; Start 07/30/16 at 09:00; Stop 07/30/16 at 18:18; Status DC Multivitamins/ Minerals/Folic Acid/Thiamine HCl/ Dextrose/Sodium Chloride ( Infuvite Adult/ Iv D5% - 1/2 NS) 1,011.2 ml @ 1,000 mls/ hr 1X ONCE IV Last administered on 07/30/16 14:34; Start 07/30/16 at 15:00; Stop 07/30/16 at 16:00 ; Status DC Lorazepam 0.5 mg 0.5 mg PRN Q4HRS PRN TP ANXIETY / AGITATION; Start 07/30/16 at 14:30 Sodium Chloride 1,000 ml @ 150 mls/hr 1X ONCE IV Last administered on 17:00; Start 07/30/16 at 17:00; Stop 07/30/16 at 23:39 Sodium Chloride (Iv Sodium Chloride 0.9% 1,000ml) 1,000 ml @ 125 mls/hr Q8H IV ; Start 07/31/16 at 00:00 Active Scripts Active Reported Polyethylene Glycol 3350 255 Gm Powder 17 Gm PO DAILY PRN Hydrocodone-Apap 5-325 (Hydrocodone Bit/Acetaminophen) 1 Each Tablet 1 Tab PO PRN Q4HRS PRN Nitrofurantoin [place]-Mcr 100 Mg (Nitrofurantoin Monohyd/M-Cryst) 100 Mg Capsule 1 Cap PO BID Tramadol Hcl (Tramadol HCl) 50 Mg Tablet 50 Mg PO TID PRN PRN Acetaminophen 500 Mg Tablet 2 Tab PO Q4HRS Lorazepam 2 Mg/1 Ml Disp.syrin 0.5 Mg TOP Q4HRS PRN Loperamide (Loperamide Hcl) 2 Mg Capsule 2 Mg PO TID PRN Megace Es (Megestrol Acetate) 625 Mg/5 Ml Oral.susp 625 Mg PO DAILY06 Lisinopril 10 Mg Tablet 10 Mg PO DAILY FENTANYL 25mcg/hr (Fentanyl) 1 Each Patch.td72 1 Patch TP Q3DAYS Famotidine 20 Mg Tablet 20 Mg PO HS Aspirin Ec (Aspirin) 81 Mg Tablet.dr 1 Tab PO DAILY Melatonin 5 Mg Tablet 5 Mg PO HS Lorazepam 2 Mg/1 Ml Disp.syrin 0.5 Mg TOP DAILY06 Escitalopram Oxalate 10 Mg Tablet 1 Tab PO DAILY Buspirone Hcl 10 Mg Tablet 1 Tab PO TID Diagnosis: Problems: (1) UTI (urinary tract infection) (2) Chronic renal insufficiency (3) Dementia with behavioral disturbance (4) Anxiety disorder (5) Dementia in Alzheimer's disease with delusions (6) Dementia in Alzheimer's disease with depression (7) Dementia, vascular, with delusions (8) Dementia, vascular, with depression (9) Impulse control disorder DEISY MCNEIL MD Jul 30, 2016 21:04
[2016-07-30] MEDS: LORazepam 0.5 MG TABLET PO PRN (21:12)
--- NOTE | 2016-07-30 21:40 | NUR ---
Nursing Note: Physician notified that pt has UTI. Orders rec to administer Rocephen via IV now and Q 24. Physician aware of pt's sensitivity to PCN. Will monitor pt closely.
--- NOTE | 2016-07-30 23:10 | NUR ---
Nursing Note: Rocephen IV given. Pt had no negative effects from medication. Will continue to monitor.
--- NOTE | 2016-07-30 23:34 | NUR ---
Behavior Intervention Response and Plan: BIRP Note: Behavior: Assumed Care of patient, patient located in Patient Room at shift change. Patient exhibited the following behavior Disorganized, Drowsy, Resistive. Brief assessment on rounds of vital signs, medication needs, lab studies, and pain. Treatment plan problems Dementia with BD and Fall Risk. Intervention: Patient assessed and the following interventions initiated safety checks 15 Minute Checks Cognitive Assessment , Head to toe Assessment , Medications. Response: After interactions and interventions patient responded in the following manner, Drowsy , Resistive ,Disorganized. Continue to assess behaviors and condition will continue to monitor throughout the shift as needed. Plan: Continue to monitor Master Treatment Plan for patient's progress toward short term goals of Decreased Agitation, Medication Compliance, intermediate manager goals to return to previous living setting vs placement. Continue to assess patient for changes in above assessment. Monitor for medication needs, pain, and safety concerns. Hourly rounding performed to ensure safe environment.
[2016-07-31] MEDS: IV NORMAL SALINE 1,000ML 1,000 ML IV SCH ×2 (00:08→08:24)
--- NOTE | 2016-07-31 02:23 | NUR ---
Nursing Note: Pt shouts out, "Leave me alone!" each time she is approached or touched,refuses to answer assessment questions. Pt refuses to drink anything; pt is on IV NS at a rate of 125.
[2016-07-31] MEDS: LORazepam TOPICAL 0.5 MG/ML GEL TP SCH (05:52)
[2016-07-31 06:59] LABS: CALCIUM 8.2 mg/dL (8.5-10.1); CREATININE 2.2 mg/dL (0.6-1.0); GFR 21.4; MAGNESIUM 1.7 mg/dL (1.8-2.4); POTASSIUM 5.3 mmol/L (3.5-5.1)
[2016-07-31] MEDS: ASPIRIN ENTERIC COATED 81 MG TABLET.DR. PO SCH (08:24)
[2016-07-31] MEDS: DULoxetine HCL 30 MG CAPSULE.DR PO SCH (08:24)
[2016-07-31] MEDS: busPIRone 10 MG TABLET. PO SCH ×3 (08:24→19:32)
--- NOTE | 2016-07-31 08:34 | NUR ---
CASSIDY spoke with pt Nephew as pt is unable to provide information. Pt DPOA states she grew [place] in [place] and lived in [place] her entire life. Pt however had no children. Pt DPOA reports pt enjoyed dancing as well as jewelry . Her M[place] Meléndez in 1988. Pt worked for [employer]. Pt nephew reports this is the first issue his Aunt has had regarding Mental Health and he reports there has not been any issues with her behaviors or her acting out like this prior. CASSIDY will contact pt nephew for treatment team as well.
[2016-07-31] MEDS: fentaNYL 25MCG/HR 1 PATCH PATCH TD SCH (09:56)
--- NOTE | 2016-07-31 10:21 | PN ---
DATE: 07/29/2016 PSYCHIATRIC PROGRESS NOTE This is late entry of 07/29/2016, covers elements not covered in my initial note. I have also reviewed very nice note left for me by Dr. Gonzalez indicating that patient's recent medication changes included starting BuSpar 10 t.i.d. on 05/01/2016, Depakote 125 b.i.d., but stopped on 07/14/2016, having been started earlier on 07/01/2016, fentanyl patch increased to 25 mcg a day on 07/22/2016, Lexapro started on 06/09/2016, Megace on 07/09/2016, Diflucan for 3 days, just finished the course and 10 days of Macrobid as well with a concern about potential drug interactions. SUBJECTIVE: Per nursing report, some labs were abnormal, Dr. Gonzalez is following this. She was quite labile in the morning, repeatedly stating "Oh my God, please help me, please help me." She complains of right shoulder pain, received Ultram, Ativan, was better with this, but then combative, scratching the nursing staff, later pleasant, mood remains labile and lability increases after Ativan. She had no breakfast, 75% of lunch. Per nursing staff, she seems to be reliving something as she has been covering her eyes. Met with her in her room. REVIEW OF SYSTEMS: Ambulation impaired. No eye, ENT, CV, , pulmonary system symptoms on review. MENTAL STATUS EXAMINATION: Oriented to herself. Insight, judgment, recent and remote memory, attention, concentration, fund of knowledge poor, consistent with her diagnosis. IMPRESSION: Major neurocognitive disorder, Alzheimer, vascular with depression, delusion, behavioral disturbance; anxiety disorder, unspecified; impulse control disorder, unspecified; status post urinary tract infection, on nitrofurantoin. PLAN: Change Lexapro 10 mg a day to Cymbalta 30 mg a day, start Seroquel 12.5 mg at 9:00 a.m. and 2 p.m., maintain Ativan 0.5 mg gel daily, Ambien at bedtime p.r.n., may stop the Ativan once we see how she does on the Seroquel and continue BuSpar 10 mg 3 times a day. Adjust further as clinically indicated. MAN Dominic MCNEIL MD DR: Agata JOB#: [id number] / [id number]
--- NOTE | 2016-07-31 11:15 | NUR ---
THERAPEUTIC RECREATION GROUP NOTE TITLE :Movement to Music: Flexibility ACTIVITY : Movement/ Exercise GOAL : Increase morale, attention, flexibility. Decrease stress/anxiety. DURATION : 35 Minutes RESPONSE : No participation.
--- NOTE | 2016-07-31 11:34 | NUR ---
Behavior Intervention Response and Plan: BIRP Note: Behavior: Assumed Care of patient, patient located in Patient Room at shift change. Patient exhibited the following behavior Disorganized, Restless, Sleeping. Brief assessment on rounds of vital signs, medication needs, lab studies, and pain. Treatment plan problems . Intervention: Patient assessed and the following interventions initiated safety checks 15 Minute Checks Medications , Head to toe Assessment , Oral Hydration. Response: After interactions and interventions patient responded in the following manner, Sleeping , Resistive ,Withdrawn. Continue to assess behaviors and condition will continue to monitor throughout the shift as needed. 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 Continue to assess patient for changes in above assessment. Monitor for medication needs, pain, and safety concerns. Hourly rounding performed to ensure safe environment.
--- NOTE | 2016-07-31 14:45 | NUR ---
THERAPEUTIC RECREATION GROUP NOTE TITLE :Bin or Basket: [employer] history, quiz and game ACTIVITY : Activities and Games GOAL : Stimulate memory, increase socialization DURATION : 60 minutes RESPONSE : No participation.
--- NOTE | 2016-07-31 14:45 | NUR ---
ACTIVITY THERAPY ASSESSMENT Completed based mostly on observations and attempted interview on this day at this time in Pt.'s room. Pt. was laying in bed moaning/groaning and was unable to express what she needed. She closed her eyes and covered her face with her hands. Pt. does not socialize with others and is not cooperative with care. She repeatedly says "oh, please leave me alone, leave me alone, oh God, please leave me alone." She participates minimally in groups. 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
[2016-07-31] MEDS: LORazepam TOPICAL 0.5 MG/ML GEL TP PRN ×2 (15:02→20:45)
[2016-07-31 15:41] VITALS: BP 126/51
[2016-07-31] MEDS: FAMOTIDINE 20 MG TABLET PO SCH (19:32)
--- NOTE | 2016-07-31 20:47 | NUR ---
Nursing Note: Pt agitated and refused HS meds x 2; Ativan gel applied. Will continue to monitor.
--- NOTE | 2016-07-31 21:10 | PDOC ---
Exam Luis Eduardo Demential Exam: Luis Eduardo Note: Please also refer to the separate dictated note~for this date of service dictated separately.~Patient seen individually. Discussed the patient with Nursing staff reviewed the chart.~Reviewed interim history and current functioning. Reviewed vital signs,~Labs/ Radiology~and current medications noted below. Continue current treatment with the changes noted in the dictated addendum note Assessment: Vital Signs: Vital Signs Date Time Temp Pulse Resp B/P Pulse Ox O2 Delivery O2 Flow Rate FiO2 07/31/16 15:41 98.4 75 20 126/51 07/30/16 16:18 97 07/30/16 06:15 Room Air I&O Intake and Output 07/31/16 07:00 Intake Total 3033.6 ml Output Total 1050 ml Balance 1983.6 ml Intake Oral 360 ml IV Total 2673.6 ml Output Urine Total 1050 ml Labs: Laboratory Tests Test 07/31/16 06:40 Sodium Level 138mmol/L (136-145) Potassium Level 5.3mmol/L (3.5-5.1) H Chloride Level 109mmol/L (98-107) H Carbon Dioxide Level 20mmol/L (21-32) L Anion Gap 9 (6-14) Blood Urea Nitrogen 36mg/dL (7-20) H Creatinine 2.2mg/dL (0.6-1.0) H Estimated GFR (Cockcroft-Gault) 21.4 Glucose Level 79mg/dL (70-99) Calcium Level 8.2mg/dL (8.5-10.1) L Magnesium Level 1.7mg/dL (1.8-2.4) L Current Medications: Meds: Current Medications Buspirone HCl (Buspar) 10 mg TID PO Last administered on 07/31/16 19:32; Start 07/28/16 at 21:00 Escitalopram Oxalate (Lexapro) 10 mg DAILY PO Last administered on 07/29/16 08 :55; Start 07/29/16 at 09:00; Stop 07/29/16 at 18:02; Status DC Non-Formulary Medication 0.5 mg DAILY06 TOP ; Start 07/29/16 at 06:00; Stop at 08:00; Status DC Melatonin 6 mg PRN QHS PRN PO INSOMNIA Last administered on 07/29/16 19:34; Start 07/28/16 at 19:15 Lorazepam (Ativan) 0.5 mg PRN Q4HRS PRN TP ANXIETY / AGITATION Last administered on 07/29/16 10:39; Start 07/29/16 at 08:15; Stop 07/29/16 at 15:17 ; Status DC Multi-Ingredient Ointment (Analgesic [place]) 1 madhu PRN QID PRN TP MUSCLE PAIN; Start 07/28/16 at 19:00 Al Hydroxide/Mg Hydroxide (Mylanta Plus Xs) 15 ml PRN AFTMEALHC PRN PO DYSPEPSIA; Start 07/28/16 at 19:00 Magnesium Hydroxide (Milk Of Magnesia) 2,400 mg PRN QHS PRN PO CONSTIPATION; Start 07/28/16 at 19:00 Acetaminophen (Tylenol) 1,000 mg PRN Q4HRS PRN PO PAIN/ TEMP; Start 07/29/16 at 00:00; Stop 07/29/16 at 10:11; Status DC Aspirin (Aspirin Enteric Coated) 81 mg DAILY PO Last administered on 07/31/16 08:24; Start 07/29/16 at 09:00 Famotidine (Pepcid) 20 mg HS PO Last administered on 07/31/16 19:32; Start at 21:00 Fentanyl (Duragesic 25mcg/ Hr) 1 patch Q3DAYS TD Last administered on 09:56; Start 07/31/16 at 09:00 Loperamide HCl (Imodium) 2 mg PRN TID PRN PO DIARRHEA; Start 07/28/16 at 19:00 Polyethylene Glycol (miraLAX) 17 gm PRN DAILY PRN PO CONSTIPATION; Start at 09:00 Tramadol HCl (Ultram) 50 mg TID PRN PRN PO PAIN Last administered on 07/30/16 05:11; Start 07/28/16 at 19:00 Megestrol Acetate (Megace) 625 mg DAILY06 PO Last administered on 07/30/16 05: 10; Start 07/29/16 at 06:00; Stop 07/30/16 at 14:13; Status DC Lorazepam (Ativan) 0.5 mg DAILY06 TP Last administered on 07/31/16 05:52; Start 07/30/16 at 06:00 Acetaminophen (Tylenol) 1,000 mg Q8HRS PRN PO PAIN/ TEMP Last administered on 21:02; Start 07/29/16 at 14:00 Lorazepam (Ativan) 0.5 mg PRN Q4HRS PRN PO ANXIETY / AGITATION Last administered on 07/30/16 21:12; Start 07/29/16 at 15:00 Duloxetine HCl (Cymbalta) 30 mg DAILY PO Last administered on 07/31/16 08:24; Start 07/30/16 at 09:00 Quetiapine Fumarate 12.5 mg 12.5 mg BID92 PO Last administered on 07/30/16 12: 03; Start 07/30/16 at 09:00; Stop 07/30/16 at 18:18; Status DC Multivitamins/ Minerals/Folic Acid/Thiamine HCl/ Dextrose/Sodium Chloride ( Infuvite Adult/ Iv D5% - 1/2 NS) 1,011.2 ml @ 1,000 mls/ hr 1X ONCE IV Last administered on 07/30/16 14:34; Start 07/30/16 at 15:00; Stop 07/30/16 at 16:00 ; Status DC Lorazepam 0.5 mg 0.5 mg PRN Q4HRS PRN TP ANXIETY / AGITATION Last administered on 07/31/16 20:45; Start 07/30/16 at 14:30 Sodium Chloride 1,000 ml @ 150 mls/hr 1X ONCE IV Last administered on 17:00; Start 07/30/16 at 17:00; Stop 07/30/16 at 23:39; Status DC Sodium Chloride 1,000 ml @ 125 mls/hr Q8H IV Last administered on 07/31/16 08 :24; Start 07/31/16 at 00:00; Stop 07/31/16 at 14:13; Status DC Ceftriaxone Sodium/Sodium Chloride (Rocephin/Iv Sodium Chloride 0.9% 50ml) 50 ml @ 100 mls/hr Q24H IV Last administered on 07/30/16 21:54; Start 07/30/16 at 22:00 Active Scripts Active Reported Polyethylene Glycol 3350 255 Gm Powder 17 Gm PO DAILY PRN Hydrocodone-Apap 5-325 (Hydrocodone Bit/Acetaminophen) 1 Each Tablet 1 Tab PO PRN Q4HRS PRN Nitrofurantoin [place]-Mcr 100 Mg (Nitrofurantoin Monohyd/M-Cryst) 100 Mg Capsule 1 Cap PO BID Tramadol Hcl (Tramadol HCl) 50 Mg Tablet 50 Mg PO TID PRN PRN Acetaminophen 500 Mg Tablet 2 Tab PO Q4HRS Lorazepam 2 Mg/1 Ml Disp.syrin 0.5 Mg TOP Q4HRS PRN Loperamide (Loperamide Hcl) 2 Mg Capsule 2 Mg PO TID PRN Megace Es (Megestrol Acetate) 625 Mg/5 Ml Oral.susp 625 Mg PO DAILY06 Lisinopril 10 Mg Tablet 10 Mg PO DAILY FENTANYL 25mcg/hr (Fentanyl) 1 Each Patch.td72 1 Patch TP Q3DAYS Famotidine 20 Mg Tablet 20 Mg PO HS Aspirin Ec (Aspirin) 81 Mg Tablet.dr 1 Tab PO DAILY Melatonin 5 Mg Tablet 5 Mg PO HS Lorazepam 2 Mg/1 Ml Disp.syrin 0.5 Mg TOP DAILY06 Escitalopram Oxalate 10 Mg Tablet 1 Tab PO DAILY Buspirone Hcl 10 Mg Tablet 1 Tab PO TID Diagnosis: Problems: (1) UTI (urinary tract infection) (2) Chronic renal insufficiency (3) Dementia with behavioral disturbance (4) Anxiety disorder (5) Dementia in Alzheimer's disease with delusions (6) Dementia in Alzheimer's disease with depression (7) Dementia, vascular, with delusions (8) Dementia, vascular, with depression (9) Impulse control disorder DEISY MCNEIL MD Jul 31, 2016 21:10
--- NOTE | 2016-07-31 22:00 | NUR ---
Nursing Note: Patient calmer and willing to take medication hidden in pudding after Ativan gel PRN was applied at 2044. Rocephin IV also administered. Will continue to monitor.
--- NOTE | 2016-07-31 23:49 | NUR ---
Behavior Intervention Response and Plan: BIRP Note: Behavior: Assumed Care of patient, patient located in Patient Room at shift change. Patient exhibited the following behavior Resistive, Disorganized, Non Compliant. Brief assessment on rounds of vital signs, medication needs, lab studies, and pain. Treatment plan problems Dementia BD and Fall Risk. Intervention: Patient assessed and the following interventions initiated safety checks 15 Minute Checks Cognitive Assessment , Head to toe Assessment , Medications. Response: After interactions and interventions patient responded in the following manner, Disorganized , Resistive ,Anxious. Continue to assess behaviors and condition will continue to monitor throughout the shift as needed. 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 Continue to assess patient for changes in above assessment. Monitor for medication needs, pain, and safety concerns. Hourly rounding performed to ensure safe environment.
[2016-08-01] MEDS: LORazepam TOPICAL 0.5 MG/ML GEL TP SCH (05:58)
[2016-08-01 06:26] VITALS: BP 128/72
[2016-08-01 06:37] LABS: ALBUMIN 2.8 g/dL (3.4-5.0); ALBUMIN/GLOBULIN RATIO 0.7 (1.0-1.7); CALCIUM 8.9 mg/dL (8.5-10.1); GFR 23.9; MAGNESIUM 1.7 mg/dL (1.8-2.4); POTASSIUM 4.9 mmol/L (3.5-5.1); TOTAL BILIRUBIN 0.4 mg/dL (0.2-1.0); TOTAL PROTEIN 6.8 g/dL (6.4-8.2)
[2016-08-01] MEDS: busPIRone 10 MG TABLET. PO SCH ×3 (08:30→19:19)
[2016-08-01] MEDS: ASPIRIN ENTERIC COATED 81 MG TABLET.DR. PO SCH (08:30)
[2016-08-01] MEDS: DULoxetine HCL 30 MG CAPSULE.DR PO SCH (08:30)
[2016-08-01] MEDS: traMADol 50 MG TABLET PO PRN (09:34)
[2016-08-01] MEDS: LORazepam TOPICAL 0.5 MG/ML GEL TP PRN ×2 (09:35→17:39)
--- NOTE | 2016-08-01 10:23 | NUR ---
Behavior Intervention Response and Plan: BIRP Note: Behavior: Assumed Care of patient, patient located in Day Room at shift change. Patient exhibited the following behavior Restless, Disorganized, Irritable. Brief assessment on rounds of vital signs, medication needs, lab studies, and pain. Treatment plan problems . Intervention: Patient assessed and the following interventions initiated safety checks 15 Minute Checks Head to toe Assessment , Medications , Oral Hydration. Response: After interactions and interventions patient responded in the following manner, Agitated , ,Disorganized. Continue to assess behaviors and condition will continue to monitor throughout the shift as needed. 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 Continue to assess patient for changes in above assessment. Monitor for medication needs, pain, and safety concerns. Hourly rounding performed to ensure safe environment.
[2016-08-01 15:27] VITALS: BP 138/61
--- NOTE | 2016-08-01 16:00 | NUR ---
THERAPEUTIC RECREATION GROUP NOTE TITLE :Carlito Leo Planter Painting ACTIVITY : Arts and Crafts GOAL : Increase creativity, fine motor, socialization. DURATION : 60 minutes RESPONSE : Minimal prompting. Pt. needed hand over hand assistance to paint can. She was cooperative but did not comprehend the task.
--- NOTE | 2016-08-01 19:00 | NUR ---
THERAPEUTIC RECREATION GROUP NOTE TITLE :Complete the popular phrase/ idiom ACTIVITY : Cognitive Stimulation GOAL : Stimulate memory, Increase problem solving DURATION : 60 minutes RESPONSE : Minimal participation. Pt. sat with group the entire time but was quiet and shouted out one guess which was the correct answer. She smiled when praised.
[2016-08-01] MEDS: FAMOTIDINE 20 MG TABLET PO SCH (19:18)
[2016-08-01] MEDS: ACETAMINOPHEN 500 MG TABLET PO PRN (19:24)
--- NOTE | 2016-08-01 20:30 | NUR ---
Behavior Intervention Response and Plan: BIRP Note: Behavior: Assumed Care of patient, patient located in Day Room at shift change. Patient exhibited the following behavior Disorganized, Anxious, Irritable, Easily startled. Brief assessment on rounds of vital signs, medication needs, lab studies, and pain. Treatment plan problems: Dementia with BD and Fall Risk . Intervention: Patient assessed and the following interventions initiated safety checks 15 Minute Checks Cognitive Assessment , Head to toe Assessment , Medications, Encouraged oral hydration. . Response: After interactions and interventions patient responded in the following manner, Interactive , Calm ,Cooperative. Continue to assess behaviors and condition will continue to monitor throughout the shift as needed. 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 Continue to assess patient for changes in above assessment. Monitor for medication needs, pain, and safety concerns. Hourly rounding performed to ensure safe environment.
--- NOTE | 2016-08-01 21:02 | PDOC ---
Exam Luis Eduardo Demential Exam: Luis Eduardo Note: Please also refer to the separate dictated note~for this date of service dictated separately.~Patient seen individually. Discussed the patient with Nursing staff reviewed the chart.~Reviewed interim history and current functioning. Reviewed vital signs,~Labs/ Radiology~and current medications noted below. Continue current treatment with the changes noted in the dictated addendum note Assessment: Vital Signs: Vital Signs Date Time Temp Pulse Resp B/P Pulse Ox O2 Delivery O2 Flow Rate FiO2 08/01/16 15:27 138/61 08/01/16 06:26 97.6 68 20 98 Room Air I&O Intake and Output 08/01/16 07:00 Intake Total 1700 ml Output Total 800 ml Balance 900 ml Intake Oral 460 ml IV Total 1240 ml Output Urine Total 800 ml Labs: Laboratory Tests Test 08/01/16 06:08 Sodium Level 137mmol/L (136-145) Potassium Level 4.9mmol/L (3.5-5.1) Chloride Level 107mmol/L (98-107) Carbon Dioxide Level 20mmol/L (21-32) L Anion Gap 10 (6-14) Blood Urea Nitrogen 32mg/dL (7-20) H Creatinine 2.0mg/dL (0.6-1.0) H Estimated GFR (Cockcroft-Gault) 23.9 BUN/Creatinine Ratio 16 (6-20) Glucose Level 86mg/dL (70-99) Calcium Level 8.9mg/dL (8.5-10.1) Magnesium Level 1.7mg/dL (1.8-2.4) L Total Bilirubin 0.4mg/dL (0.2-1.0) Aspartate Amino Transferase (AST) 22U/L (15-37) Alanine Aminotransferase (ALT) 14U/L (14-59) Alkaline Phosphatase 74U/L (46-116) Total Protein 6.8g/dL (6.4-8.2) Albumin 2.8g/dL (3.4-5.0) L Albumin/Globulin Ratio 0.7 (1.0-1.7) L Current Medications: Meds: Current Medications Buspirone HCl (Buspar) 10 mg TID PO Last administered on 08/01/16t 19:19; Start 07/28/16 at 21:00 Escitalopram Oxalate (Lexapro) 10 mg DAILY PO Last administered on 07/29/16 08 :55; Start 07/29/16 at 09:00; Stop 07/29/16 at 18:02; Status DC Non-Formulary Medication 0.5 mg DAILY06 TOP ; Start 07/29/16 at 06:00; Stop at 08:00; Status DC Melatonin 6 mg PRN QHS PRN PO INSOMNIA Last administered on 07/29/16 19:34; Start 07/28/16 at 19:15 Lorazepam (Ativan) 0.5 mg PRN Q4HRS PRN TP ANXIETY / AGITATION Last administered on 07/29/16 10:39; Start 07/29/16 at 08:15; Stop 07/29/16 at 15:17 ; Status DC Multi-Ingredient Ointment (Analgesic [place]) 1 madhu PRN QID PRN TP MUSCLE PAIN; Start 07/28/16 at 19:00 Al Hydroxide/Mg Hydroxide (Mylanta Plus Xs) 15 ml PRN AFTMEALHC PRN PO DYSPEPSIA; Start 07/28/16 at 19:00 Magnesium Hydroxide (Milk Of Magnesia) 2,400 mg PRN QHS PRN PO CONSTIPATION; Start 07/28/16 at 19:00 Acetaminophen (Tylenol) 1,000 mg PRN Q4HRS PRN PO PAIN/ TEMP; Start 07/29/16 at 00:00; Stop 07/29/16 at 10:11; Status DC Aspirin (Aspirin Enteric Coated) 81 mg DAILY PO Last administered on 08/01/16 08:30; Start 07/29/16 at 09:00 Famotidine (Pepcid) 20 mg HS PO Last administered on 08/01/16 19:18; Start at 21:00 Fentanyl (Duragesic 25mcg/ Hr) 1 patch Q3DAYS TD Last administered on 09:56; Start 07/31/16 at 09:00 Loperamide HCl (Imodium) 2 mg PRN TID PRN PO DIARRHEA; Start 07/28/16 at 19:00 Polyethylene Glycol (miraLAX) 17 gm PRN DAILY PRN PO CONSTIPATION; Start at 09:00 Tramadol HCl (Ultram) 50 mg TID PRN PRN PO PAIN Last administered on 08/01/16 09:34; Start 07/28/16 at 19:00 Megestrol Acetate (Megace) 625 mg DAILY06 PO Last administered on 07/30/16 05: 10; Start 07/29/16 at 06:00; Stop 07/30/16 at 14:13; Status DC Lorazepam (Ativan) 0.5 mg DAILY06 TP Last administered on 08/01/16 05:58; Start 07/30/16 at 06:00 Acetaminophen (Tylenol) 1,000 mg Q8HRS PRN PO PAIN/ TEMP Last administered on 19:24; Start 07/29/16 at 14:00 Lorazepam (Ativan) 0.5 mg PRN Q4HRS PRN PO ANXIETY / AGITATION Last administered on 07/30/16 21:12; Start 07/29/16 at 15:00 Duloxetine HCl (Cymbalta) 30 mg DAILY PO Last administered on 08/01/16 08:30; Start 07/30/16 at 09:00 Quetiapine Fumarate 12.5 mg 12.5 mg BID92 PO Last administered on 07/30/16 12: 03; Start 07/30/16 at 09:00; Stop 07/30/16 at 18:18; Status DC Multivitamins/ Minerals/Folic Acid/Thiamine HCl/ Dextrose/Sodium Chloride ( Infuvite Adult/ Iv D5% - 1/2 NS) 1,011.2 ml @ 1,000 mls/ hr 1X ONCE IV Last administered on 07/30/16 14:34; Start 07/30/16 at 15:00; Stop 07/30/16 at 16:00 ; Status DC Lorazepam 0.5 mg 0.5 mg PRN Q4HRS PRN TP ANXIETY / AGITATION Last administered on 08/01/16 17:39; Start 07/30/16 at 14:30 Sodium Chloride 1,000 ml @ 150 mls/hr 1X ONCE IV Last administered on 17:00; Start 07/30/16 at 17:00; Stop 07/30/16 at 23:39; Status DC Sodium Chloride 1,000 ml @ 125 mls/hr Q8H IV Last administered on 07/31/16 08 :24; Start 07/31/16 at 00:00; Stop 07/31/16 at 14:13; Status DC Ceftriaxone Sodium/Sodium Chloride (Rocephin/Iv Sodium Chloride 0.9% 50ml) 50 ml @ 100 mls/hr Q24H IV Last administered on 07/31/16t 22:06; Start 07/30/16 at 22:00 Active Scripts Active Reported Polyethylene Glycol 3350 255 Gm Powder 17 Gm PO DAILY PRN Hydrocodone-Apap 5-325 (Hydrocodone Bit/Acetaminophen) 1 Each Tablet 1 Tab PO PRN Q4HRS PRN Nitrofurantoin [place]-Mcr 100 Mg (Nitrofurantoin Monohyd/M-Cryst) 100 Mg Capsule 1 Cap PO BID Tramadol Hcl (Tramadol HCl) 50 Mg Tablet 50 Mg PO TID PRN PRN Acetaminophen 500 Mg Tablet 2 Tab PO Q4HRS Lorazepam 2 Mg/1 Ml Disp.syrin 0.5 Mg TOP Q4HRS PRN Loperamide (Loperamide Hcl) 2 Mg Capsule 2 Mg PO TID PRN Megace Es (Megestrol Acetate) 625 Mg/5 Ml Oral.susp 625 Mg PO DAILY06 Lisinopril 10 Mg Tablet 10 Mg PO DAILY FENTANYL 25mcg/hr (Fentanyl) 1 Each Patch.td72 1 Patch TP Q3DAYS Famotidine 20 Mg Tablet 20 Mg PO HS Aspirin Ec (Aspirin) 81 Mg Tablet.dr 1 Tab PO DAILY Melatonin 5 Mg Tablet 5 Mg PO HS Lorazepam 2 Mg/1 Ml Disp.syrin 0.5 Mg TOP DAILY06 Escitalopram Oxalate 10 Mg Tablet 1 Tab PO DAILY Buspirone Hcl 10 Mg Tablet 1 Tab PO TID Diagnosis: Problems: (1) UTI (urinary tract infection) (2) Chronic renal insufficiency (3) Dementia with behavioral disturbance (4) Anxiety disorder (5) Dementia in Alzheimer's disease with delusions (6) Dementia in Alzheimer's disease with depression (7) Dementia, vascular, with delusions (8) Dementia, vascular, with depression (9) Impulse control disorder DEISY MCNEIL MD Aug 01, 2016 21:02
--- NOTE | 2016-08-01 22:30 | NUR ---
Nursing Note: A #22 gauge saline lock started in the right FA x 1 attempt. Pt was calm during procedure and tolerated well. IV with good blood return and patent. IV Rocephin initiated and administered as ordered. Will continue to monitor.
--- NOTE | 2016-08-01 23:06 | PN ---
DATE: 07/30/2016 PSYCHIATRIC PROGRESS NOTE SUBJECTIVE: This is a late entry for date of service 07/30/2016. The patient was seen on rounds in the evening of 07/30/2016. Discussed with nursing staff, reviewed the chart. The patient's blood pressure was low. Seroquel was discontinued. Creatinine was elevated at 2.5. She was dehydrated, started on fluids per Dr. Gonzalez. UA is cloudy. Final result is awaited. REVIEW OF SYSTEMS: Positive for tiredness. No CV, , pulmonary, eye system symptoms on review. Reliability poor. MENTAL STATUS EXAM: Oriented to herself. Insight, judgment, recent and remote memory, attention, concentration, fund of knowledge poor, consistent with her diagnosis as mentioned in my initial note. IMPRESSION: Major neurocognitive disorder, Alzheimer, vascular with depression, delusion, behavioral disturbance; anxiety disorder, unspecified; impulse control disorder, unspecified. PLAN: Maintain Cymbalta 30 mg a day, Seroquel was stopped. BuSpar 10 mg t.i.d., Ativan 0.5 mg jel daily. Adjust further as clinically indicated. MAN Dominic MCNEIL MD DR: MARIVEL/yazmin JOB#: [id number] / [id number]
--- NOTE | 2016-08-01 23:15 | PN ---
DATE: 07/31/2016 PSYCHIATRIC PROGRESS NOTE This is a late entry for 07/31/2016, covers elements not covered in my initial note. SUBJECTIVE: The patient was staffed at a treatment team meeting with the entire team the morning of 07/31/2016 and Xiang Hawkins, the patient's DPOA attended the conference. Blood pressure is still low. Sleeping about 7 hours. Appetite 40% of meals. Received IV fluids at night. Does have UTI, started on Rocephin. Discussed history, diagnosis, discharge, aftercare plans at length with Xiang. REVIEW OF SYSTEMS: Positive for impaired ambulation, tiredness. No CV, , pulmonary, eye system symptoms on review. Reliability poor. MENTAL STATUS EXAM: Oriented to herself. Insight, judgment, recent and remote memory, attention, concentration, fund of knowledge poor, consistent with her diagnosis mentioned in my initial note. IMPRESSION: Major neurocognitive disorder, Alzheimer, vascular with depression, delusion, behavioral disturbance. Rest unchanged. Dehydration, urinary tract infection. PLAN: Continue Cymbalta 30 mg a day, BuSpar 10 mg t.i.d., Ativan 0.5 mg gel daily will be stopped. We will reassess while she is medically stable. UTI is clear to the extent. If her aggression and agitation resurfaces, we will reinstate atypical antipsychotics if needed or Depakote as a mood stabilizer. MAN Dominic MCNEIL MD DR: MARIVEL/yazmin JOB#: [id number] / [id number]
[2016-08-02] MEDS: LORazepam TOPICAL 0.5 MG/ML GEL TP SCH (05:09)
[2016-08-02 06:31] VITALS: BP 166/84
[2016-08-02] MEDS ORDERED: FOSFOMYCIN TROMETHAMINE 3 GM PACKET PO ONE (08:00)
--- NOTE | 2016-08-02 08:32 | NUR ---
Pt refusing to eat or drink at breakfast. Nurse educated pt on importance of nutrition. Pt continued to refuse to eat or drink and when nurse offered boost pt slapped at nurses hand.
--- NOTE | 2016-08-02 10:13 | NUR ---
Behavior Intervention Response and Plan: BIRP Note: Behavior: Assumed Care of patient, patient located in Patient Room at shift change. Patient exhibited the following behavior anxious, refusing medication, refusing assessment, labile. Brief assessment on rounds of vital signs, medication needs, lab studies, and pain. Treatment plan problems . Intervention: Patient assessed and the following interventions initiated safety checks 15 Minute Checks Cognitive Assessment , Head to toe Assessment , Medications. Response: After interactions and interventions patient responded in the following manner, Disorganized, anxious, refusing medication. Continue to assess behaviors and condition will continue to monitor throughout the shift as needed. 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 Continue to assess patient for changes in above assessment. Monitor for medication needs, pain, and safety concerns. Hourly rounding performed to ensure safe environment.
--- NOTE | 2016-08-02 11:00 | NUR ---
THERAPEUTIC RECREATION GROUP NOTE TITLE :: Flower planting in painted tin cans ACTIVITY : Sensory Stimulation GOAL : Increase feeling of wellness, socialization, and facilitate memory DURATION : 30 minutes RESPONSE : No participation.
[2016-08-02] MEDS: traMADol 50 MG TABLET PO PRN (11:32)
[2016-08-02] MEDS: DULoxetine HCL 30 MG CAPSULE.DR PO SCH (12:03)
[2016-08-02] MEDS: busPIRone 10 MG TABLET. PO SCH ×3 (12:03→19:33)
[2016-08-02] MEDS: ASPIRIN ENTERIC COATED 81 MG TABLET.DR. PO SCH (12:03)
--- NOTE | 2016-08-02 16:08 | NUR ---
Pt soiled self in the dayroom. 2 staff members assisted pt to the bathroom and then to the shower, during this time pt yelled out "help me help me help me" when staff reassured pt they were helping her pt would yell out "leave me alone you're hurting me." During the shower pt was hitting staff and yelling out "leave me alone. help me." Pt was able to be redirected to dayroom after shower however while staff was brushing and curling her hair pt kept yelling out "oh God! don't brush it!" "brush my hair!" "Oh God." When staff was finished pt was calm and resting in dayroom chair.
[2016-08-02 16:14] VITALS: BP 134/84
[2016-08-02] MEDS: ACETAMINOPHEN 500 MG TABLET PO PRN (19:33)
[2016-08-02] MEDS: FAMOTIDINE 20 MG TABLET PO SCH (19:33)
--- NOTE | 2016-08-02 20:30 | NUR ---
Behavior Intervention Response and Plan: BIRP Note: Behavior: Assumed Care of patient, patient located in Day Room at shift change. Patient exhibited the following behavior Disorganized, Irritable, Non Compliant. Brief assessment on rounds of vital signs, medication needs, lab studies, and pain. Treatment plan problems: Dementia with BD and Fall risk . Intervention: Patient assessed and the following interventions initiated safety checks 15 Minute Checks, Cognitive Assessment , Head to toe Assessment , Medications, redirection and coping techniques, oral hydration. Response: After interactions and interventions patient responded in the following manner, Calm , Cooperative ,Withdrawn. Continue to assess behaviors and condition will continue to monitor throughout the shift as needed. Plan: Continue to monitor Master Treatment Plan for patient's progress toward short term goals of Decreased Anxiety and agitation, Medication Compliance, Improved Mood intermission coordinator goals to return to previous living setting vs placement. Continue to assess patient for changes in above assessment. Monitor for medication needs, pain, and safety concerns. Hourly rounding performed to ensure safe environment.
--- NOTE | 2016-08-02 21:10 | PDOC ---
Exam Luis Eduardo Demential Exam: Luis Eduardo Note: Please also refer to the separate dictated note~for this date of service dictated separately.~Patient seen individually. Discussed the patient with Nursing staff reviewed the chart.~Reviewed interim history and current functioning. Reviewed vital signs,~Labs/ Radiology~and current medications noted below. Continue current treatment with the changes noted in the dictated addendum note Assessment: Vital Signs: Vital Signs Date Time Temp Pulse Resp B/P Pulse Ox O2 Delivery O2 Flow Rate FiO2 08/02/16 16:14 97.6 64 22 134/84 98 08/02/16 06:31 Room Air I&O Intake and Output 08/02/16 07:00 Intake Total 600 ml Output Total 400 ml Balance 200 ml Intake Oral 600 ml Output Urine Total 400 ml # Bowel Movements 1 Current Medications: Meds: Current Medications Buspirone HCl (Buspar) 10 mg TID PO Last administered on 08/02/16 19:33; Start 07/28/16 at 21:00 Escitalopram Oxalate (Lexapro) 10 mg DAILY PO Last administered on 07/29/16 08 :55; Start 07/29/16 at 09:00; Stop 07/29/16 at 18:02; Status DC Non-Formulary Medication 0.5 mg DAILY06 TOP ; Start 07/29/16 at 06:00; Stop at 08:00; Status DC Melatonin 6 mg PRN QHS PRN PO INSOMNIA Last administered on 07/29/16 19:34; Start 07/28/16 at 19:15 Lorazepam (Ativan) 0.5 mg PRN Q4HRS PRN TP ANXIETY / AGITATION Last administered on 07/29/16 10:39; Start 07/29/16 at 08:15; Stop 07/29/16 at 15:17 ; Status DC Multi-Ingredient Ointment (Analgesic [place]) 1 madhu PRN QID PRN TP MUSCLE PAIN; Start 07/28/16 at 19:00 Al Hydroxide/Mg Hydroxide (Mylanta Plus Xs) 15 ml PRN AFTMEALHC PRN PO DYSPEPSIA; Start 07/28/16 at 19:00 Magnesium Hydroxide (Milk Of Magnesia) 2,400 mg PRN QHS PRN PO CONSTIPATION; Start 07/28/16 at 19:00 Acetaminophen (Tylenol) 1,000 mg PRN Q4HRS PRN PO PAIN/ TEMP; Start 07/29/16 at 00:00; Stop 07/29/16 at 10:11; Status DC Aspirin (Aspirin Enteric Coated) 81 mg DAILY PO Last administered on 08/02/16 12:03; Start 07/29/16 at 09:00 Famotidine (Pepcid) 20 mg HS PO Last administered on 08/02/16 19:33; Start at 21:00 Fentanyl (Duragesic 25mcg/ Hr) 1 patch Q3DAYS TD Last administered on 09:56; Start 07/31/16 at 09:00 Loperamide HCl (Imodium) 2 mg PRN TID PRN PO DIARRHEA; Start 07/28/16 at 19:00 Polyethylene Glycol (miraLAX) 17 gm PRN DAILY PRN PO CONSTIPATION; Start at 09:00 Tramadol HCl (Ultram) 50 mg TID PRN PRN PO PAIN Last administered on 08/01/16 09:34; Start 07/28/16 at 19:00 Megestrol Acetate (Megace) 625 mg DAILY06 PO Last administered on 07/30/16 05: 10; Start 07/29/16 at 06:00; Stop 07/30/16 at 14:13; Status DC Lorazepam (Ativan) 0.5 mg DAILY06 TP Last administered on 08/02/16 05:09; Start 07/30/16 at 06:00 Acetaminophen (Tylenol) 1,000 mg Q8HRS PRN PO PAIN/ TEMP Last administered on 19:33; Start 07/29/16 at 14:00 Lorazepam (Ativan) 0.5 mg PRN Q4HRS PRN PO ANXIETY / AGITATION Last administered on 07/30/16 21:12; Start 07/29/16 at 15:00 Duloxetine HCl (Cymbalta) 30 mg DAILY PO Last administered on 08/02/16 12:03; Start 07/30/16 at 09:00 Quetiapine Fumarate 12.5 mg 12.5 mg BID92 PO Last administered on 07/30/16 12: 03; Start 07/30/16 at 09:00; Stop 07/30/16 at 18:18; Status DC Multivitamins/ Minerals/Folic Acid/Thiamine HCl/ Dextrose/Sodium Chloride ( Infuvite Adult/ Iv D5% - 1/2 NS) 1,011.2 ml @ 1,000 mls/ hr 1X ONCE IV Last administered on 07/30/16 14:34; Start 07/30/16 at 15:00; Stop 07/30/16 at 16:00 ; Status DC Lorazepam 0.5 mg 0.5 mg PRN Q4HRS PRN TP ANXIETY / AGITATION Last administered on 08/01/16 17:39; Start 07/30/16 at 14:30 Sodium Chloride 1,000 ml @ 150 mls/hr 1X ONCE IV Last administered on 17:00; Start 07/30/16 at 17:00; Stop 07/30/16 at 23:39; Status DC Sodium Chloride 1,000 ml @ 125 mls/hr Q8H IV Last administered on 07/31/16 08 :24; Start 07/31/16 at 00:00; Stop 07/31/16 at 14:13; Status DC Ceftriaxone Sodium/Sodium Chloride (Rocephin/Iv Sodium Chloride 0.9% 50ml) 50 ml @ 100 mls/hr Q24H IV Last administered on 08/01/16 23:23; Start 07/30/16 at 22:00; Stop 08/02/16 at 07:46; Status DC Fosfomycin Tromethamine (Monurol) 3 gm 1X ONCE PO Last administered on 12:03; Start 08/02/16 at 08:00; Stop 08/02/16 at 08:01; Status DC Quetiapine Fumarate (SEROquel) 12.5 mg BID92 PO ; Start 08/03/16 at 09:00 Active Scripts Active Reported Polyethylene Glycol 3350 255 Gm Powder 17 Gm PO DAILY PRN Hydrocodone-Apap 5-325 (Hydrocodone Bit/Acetaminophen) 1 Each Tablet 1 Tab PO PRN Q4HRS PRN Nitrofurantoin [place]-Mcr 100 Mg (Nitrofurantoin Monohyd/M-Cryst) 100 Mg Capsule 1 Cap PO BID Tramadol Hcl (Tramadol HCl) 50 Mg Tablet 50 Mg PO TID PRN PRN Acetaminophen 500 Mg Tablet 2 Tab PO Q4HRS Lorazepam 2 Mg/1 Ml Disp.syrin 0.5 Mg TOP Q4HRS PRN Loperamide (Loperamide Hcl) 2 Mg Capsule 2 Mg PO TID PRN Megace Es (Megestrol Acetate) 625 Mg/5 Ml Oral.susp 625 Mg PO DAILY06 Lisinopril 10 Mg Tablet 10 Mg PO DAILY FENTANYL 25mcg/hr (Fentanyl) 1 Each Patch.td72 1 Patch TP Q3DAYS Famotidine 20 Mg Tablet 20 Mg PO HS Aspirin Ec (Aspirin) 81 Mg Tablet.dr 1 Tab PO DAILY Melatonin 5 Mg Tablet 5 Mg PO HS Lorazepam 2 Mg/1 Ml Disp.syrin 0.5 Mg TOP DAILY06 Escitalopram Oxalate 10 Mg Tablet 1 Tab PO DAILY Buspirone Hcl 10 Mg Tablet 1 Tab PO TID Diagnosis: Problems: (1) UTI (urinary tract infection) (2) Chronic renal insufficiency (3) Dementia with behavioral disturbance (4) Anxiety disorder (5) Dementia in Alzheimer's disease with delusions (6) Dementia in Alzheimer's disease with depression (7) Dementia, vascular, with delusions (8) Dementia, vascular, with depression (9) Impulse control disorder DEISY MCNEIL MD Aug 02, 2016 21:10
[2016-08-02] MEDS: LORazepam TOPICAL 0.5 MG/ML GEL TP PRN (21:16)
[2016-08-03] MEDS: LORazepam TOPICAL 0.5 MG/ML GEL TP SCH (06:00)
[2016-08-03] MEDS: busPIRone 10 MG TABLET. PO SCH ×3 (08:32→19:45)
[2016-08-03] MEDS: DULoxetine HCL 30 MG CAPSULE.DR PO SCH (08:32)
[2016-08-03] MEDS: ASPIRIN ENTERIC COATED 81 MG TABLET.DR. PO SCH (08:32)
[2016-08-03] MEDS: fentaNYL 25MCG/HR 1 PATCH PATCH TD SCH (08:34)
[2016-08-03] MEDS: QUEtiapine 25 MG TABLET. PO SCH ×2 (08:34→13:57)
--- NOTE | 2016-08-03 09:53 | NUR ---
Behavior Intervention Response and Plan: BIRP Note: Behavior: Assumed Care of patient, patient located in Patient Room at shift change. Patient exhibited the following behavior anxious, refusing medication, refusing assessment, labile. Brief assessment on rounds of vital signs, medication needs, lab studies, and pain. Treatment plan problems . Intervention: Patient assessed and the following interventions initiated safety checks 15 Minute Checks Cognitive Assessment , Head to toe Assessment , Medications. Response: After interactions and interventions patient responded in the following manner, Disorganized, anxious, refusing medication. Continue to assess behaviors and condition will continue to monitor throughout the shift as needed. Plan: Continue to monitor Master Treatment Plan for patient's progress toward short term goals of Decreased Agitation, Decreased Anxiety, manager long term care goals to return to previous living setting vs placement. Continue to assess patient for changes in above assessment. Monitor for medication needs, pain, and safety concerns. Hourly rounding performed to ensure safe environment.
[2016-08-03 17:07] VITALS: BP 82/43
[2016-08-03] MEDS: CYANOCOBALAMIN (VITAMIN B-12) 250 MCG TABLET PO SCH (17:09)
[2016-08-03] MEDS: CHOLECALCIFEROL (VITAMIN D3) 1,000 UNIT TABLET PO SCH (17:09)
[2016-08-03] MEDS: FAMOTIDINE 20 MG TABLET PO SCH (19:45)
[2016-08-03] MEDS: ACETAMINOPHEN 500 MG TABLET PO PRN (19:46)
--- NOTE | 2016-08-03 21:06 | PDOC ---
Exam Luis Eduardo Demential Exam: Luis Eduardo Note: Please also refer to the separate dictated note~for this date of service dictated separately.~Patient seen individually. Discussed the patient with Nursing staff reviewed the chart.~Reviewed interim history and current functioning. Reviewed vital signs,~Labs/ Radiology~and current medications noted below. Continue current treatment with the changes noted in the dictated addendum note Assessment: Vital Signs: Vital Signs Date Time Temp Pulse Resp B/P Pulse Ox O2 Delivery O2 Flow Rate FiO2 08/03/16 17:07 99.1 47 16 82/43 95 08/02/16 06:31 Room Air I&O Intake and Output 08/03/16 07:00 Intake Total 1080 ml Balance 1080 ml Intake Oral 1080 ml # Bowel Movements 2 Current Medications: Meds: Current Medications Buspirone HCl (Buspar) 10 mg TID PO Last administered on 08/03/16 19:45; Start 07/28/16 at 21:00 Escitalopram Oxalate (Lexapro) 10 mg DAILY PO Last administered on 07/29/16 08 :55; Start 07/29/16 at 09:00; Stop 07/29/16 at 18:02; Status DC Non-Formulary Medication 0.5 mg DAILY06 TOP ; Start 07/29/16 at 06:00; Stop at 08:00; Status DC Melatonin 6 mg PRN QHS PRN PO INSOMNIA Last administered on 07/29/16 19:34; Start 07/28/16 at 19:15 Lorazepam (Ativan) 0.5 mg PRN Q4HRS PRN TP ANXIETY / AGITATION Last administered on 07/29/16 10:39; Start 07/29/16 at 08:15; Stop 07/29/16 at 15:17 ; Status DC Multi-Ingredient Ointment (Analgesic [place]) 1 madhu PRN QID PRN TP MUSCLE PAIN; Start 07/28/16 at 19:00 Al Hydroxide/Mg Hydroxide (Mylanta Plus Xs) 15 ml PRN AFTMEALHC PRN PO DYSPEPSIA; Start 07/28/16 at 19:00 Magnesium Hydroxide (Milk Of Magnesia) 2,400 mg PRN QHS PRN PO CONSTIPATION; Start 07/28/16 at 19:00 Acetaminophen (Tylenol) 1,000 mg PRN Q4HRS PRN PO PAIN/ TEMP; Start 07/29/16 at 00:00; Stop 07/29/16 at 10:11; Status DC Aspirin (Aspirin Enteric Coated) 81 mg DAILY PO Last administered on 08/03/16 08:32; Start 07/29/16 at 09:00 Famotidine (Pepcid) 20 mg HS PO Last administered on 08/03/16 19:45; Start at 21:00 Fentanyl (Duragesic 25mcg/ Hr) 1 patch Q3DAYS TD Last administered on 08:34; Start 07/31/16 at 09:00 Loperamide HCl (Imodium) 2 mg PRN TID PRN PO DIARRHEA; Start 07/28/16 at 19:00 Polyethylene Glycol (miraLAX) 17 gm PRN DAILY PRN PO CONSTIPATION; Start at 09:00 Tramadol HCl (Ultram) 50 mg TID PRN PRN PO PAIN Last administered on 08/01/16 09:34; Start 07/28/16 at 19:00 Megestrol Acetate (Megace) 625 mg DAILY06 PO Last administered on 07/30/16 05: 10; Start 07/29/16 at 06:00; Stop 07/30/16 at 14:13; Status DC Lorazepam (Ativan) 0.5 mg DAILY06 TP Last administered on 08/03/16 06:00; Start 07/30/16 at 06:00 Acetaminophen (Tylenol) 1,000 mg Q8HRS PRN PO PAIN/ TEMP Last administered on 19:46; Start 07/29/16 at 14:00 Lorazepam (Ativan) 0.5 mg PRN Q4HRS PRN PO ANXIETY / AGITATION Last administered on 07/30/16 21:12; Start 07/29/16 at 15:00 Duloxetine HCl (Cymbalta) 30 mg DAILY PO Last administered on 08/03/16 08:32; Start 07/30/16 at 09:00 Quetiapine Fumarate 12.5 mg 12.5 mg BID92 PO Last administered on 07/30/16 12: 03; Start 07/30/16 at 09:00; Stop 07/30/16 at 18:18; Status DC Multivitamins/ Minerals/Folic Acid/Thiamine HCl/ Dextrose/Sodium Chloride ( Infuvite Adult/ Iv D5% - 1/2 NS) 1,011.2 ml @ 1,000 mls/ hr 1X ONCE IV Last administered on 07/30/16 14:34; Start 07/30/16 at 15:00; Stop 07/30/16 at 16:00 ; Status DC Lorazepam 0.5 mg 0.5 mg PRN Q4HRS PRN TP ANXIETY / AGITATION Last administered on 08/02/16 21:16; Start 07/30/16 at 14:30 Sodium Chloride 1,000 ml @ 150 mls/hr 1X ONCE IV Last administered on 17:00; Start 07/30/16 at 17:00; Stop 07/30/16 at 23:39; Status DC Sodium Chloride 1,000 ml @ 125 mls/hr Q8H IV Last administered on 07/31/16 08 :24; Start 07/31/16 at 00:00; Stop 07/31/16 at 14:13; Status DC Ceftriaxone Sodium/Sodium Chloride (Rocephin/Iv Sodium Chloride 0.9% 50ml) 50 ml @ 100 mls/hr Q24H IV Last administered on 08/01/16 23:23; Start 07/30/16 at 22:00; Stop 08/02/16 at 07:46; Status DC Fosfomycin Tromethamine (Monurol) 3 gm 1X ONCE PO Last administered on 12:03; Start 08/02/16 at 08:00; Stop 08/02/16 at 08:01; Status DC Quetiapine Fumarate (SEROquel) 12.5 mg BID92 PO Last administered on 08/03/16 13:57; Start 08/03/16 at 09:00 Vitamin D (Vitamin D3) 1,000 unit DAILYWSUP PO Last administered on 08/03/16 17:09; Start 08/03/16 at 17:00 Cyanocobalamin (Vitamin B-12) 250 mcg DAILYWSUP PO Last administered on 17:09; Start 08/03/16 at 17:00 Active Scripts Active Reported Polyethylene Glycol 3350 255 Gm Powder 17 Gm PO DAILY PRN Hydrocodone-Apap 5-325 (Hydrocodone Bit/Acetaminophen) 1 Each Tablet 1 Tab PO PRN Q4HRS PRN Nitrofurantoin [place]-Mcr 100 Mg (Nitrofurantoin Monohyd/M-Cryst) 100 Mg Capsule 1 Cap PO BID Tramadol Hcl (Tramadol HCl) 50 Mg Tablet 50 Mg PO TID PRN PRN Acetaminophen 500 Mg Tablet 2 Tab PO Q4HRS Lorazepam 2 Mg/1 Ml Disp.syrin 0.5 Mg TOP Q4HRS PRN Loperamide (Loperamide Hcl) 2 Mg Capsule 2 Mg PO TID PRN Megace Es (Megestrol Acetate) 625 Mg/5 Ml Oral.susp 625 Mg PO DAILY06 Lisinopril 10 Mg Tablet 10 Mg PO DAILY FENTANYL 25mcg/hr (Fentanyl) 1 Each Patch.td72 1 Patch TP Q3DAYS Famotidine 20 Mg Tablet 20 Mg PO HS Aspirin Ec (Aspirin) 81 Mg Tablet.dr 1 Tab PO DAILY Melatonin 5 Mg Tablet 5 Mg PO HS Lorazepam 2 Mg/1 Ml Disp.syrin 0.5 Mg TOP DAILY06 Escitalopram Oxalate 10 Mg Tablet 1 Tab PO DAILY Buspirone Hcl 10 Mg Tablet 1 Tab PO TID Diagnosis: Problems: (1) UTI (urinary tract infection) (2) Chronic renal insufficiency (3) Dementia with behavioral disturbance (4) Anxiety disorder (5) Dementia in Alzheimer's disease with delusions (6) Dementia in Alzheimer's disease with depression (7) Dementia, vascular, with delusions (8) Dementia, vascular, with depression (9) Impulse control disorder DEISY MCNEIL MD Aug 03, 2016 21:06
--- NOTE | 2016-08-04 04:50 | NUR ---
Behavior Intervention Response and Plan: BIRP Note: Behavior: Assumed Care of patient, patient located in Day Room at shift change. Patient exhibited the following behavior Disorganized, Demanding, Attention Seeking. Brief assessment on rounds of vital signs, medication needs, lab studies, and pain. Treatment plan problems Dementia with BF and Fall Risk. Intervention: Patient assessed and the following interventions initiated safety checks 15 Minute Checks Cognitive Assessment , Head to toe Assessment , Medications. Response: After interactions and interventions patient responded in the following manner, Attention Seeking , Compliant ,Disorganized. Continue to assess behaviors and condition will continue to monitor throughout the shift as needed. Plan: Continue to monitor Master Treatment Plan for patient's progress toward short term goals of Decreased Anxiety, Improved Mood, jail goals to return to previous living setting vs placement. Continue to assess patient for changes in above assessment. Monitor for medication needs, pain, and safety concerns. Hourly rounding performed to ensure safe environment.
[2016-08-04] MEDS: LORazepam TOPICAL 0.5 MG/ML GEL TP SCH (06:14)
[2016-08-04 06:57] VITALS: BP 182/44
[2016-08-04] MEDS: busPIRone 10 MG TABLET. PO SCH ×3 (08:24→19:10)
[2016-08-04] MEDS: DULoxetine HCL 30 MG CAPSULE.DR PO SCH (08:24)
[2016-08-04] MEDS: ASPIRIN ENTERIC COATED 81 MG TABLET.DR. PO SCH (08:24)
[2016-08-04] MEDS: QUEtiapine 25 MG TABLET. PO SCH ×2 (08:25→14:31)
--- NOTE | 2016-08-04 10:05 | NUR ---
Behavior Intervention Response and Plan: BIRP Note: Behavior: Assumed Care of patient, patient located in Patient Room at shift change. Patient exhibited the following behavior anxious but better than over the weekend, cooperative with medications when they are crushed. Brief assessment on rounds of vital signs, medication needs, lab studies, and pain. Treatment plan problems . Intervention: Patient assessed and the following interventions initiated safety checks 15 Minute Checks Cognitive Assessment , Head to toe Assessment , Medications. Response: After interactions and interventions patient responded in the following manner, calm, cooperative and compliant. Continue to assess behaviors and condition will continue to monitor throughout the shift as needed. Plan: Continue to monitor Master Treatment Plan for patient's progress toward short term goals of Decreased Agitation, Decreased Anxiety, manager long term care goals to return to previous living setting vs placement. Continue to assess patient for changes in above assessment. Monitor for medication needs, pain, and safety concerns. Hourly rounding performed to ensure safe environment.
--- NOTE | 2016-08-04 13:15 | PN ---
DATE: 08/02/2016 PSYCHIATRIC PROGRESS NOTE This is late entry of 08/02/2016, covers elements not covered in my initial note. SUBJECTIVE: The patient was agitated previous night, during the day 08/02/2016 she was anxious, agitated, repeatedly stating "help me, help me" and then telling staff to "leave me alone, leave me alone." UA was positive, received a dose of Monurol. IV antibiotics have been stopped. The previous evening she struck out at a nursing staff, agitated. REVIEW OF SYSTEMS: Ambulation impaired. No CV, , pulmonary, eye system symptoms on review. MENTAL STATUS EXAMINATION: Oriented to herself. Insight, judgment, recent and remote memory, attention, concentration, fund of knowledge poor, consistent with her diagnosis mentioned in my initial note. LABORATORY DATA: Reviewed. PLAN: Restart Seroquel, but at a lower dosage 12.5 mg twice a day if okay with Dr. Gonzalez, continue Cymbalta 30 mg a day, BuSpar 10 t.i.d., Ativan gel. Adjust further as clinically indicated. MAN Dominic MCNEIL MD DR: MARIVEL/yazmin JOB#: [id number] / [id number]
--- NOTE | 2016-08-04 13:15 | PN ---
DATE: 08/01/2016 PSYCHIATRIC PROGRESS NOTE This late entry of 08/01/2016, covers elements not covered in my initial note. SUBJECTIVE: Per nursing report, the patient remains confused, anxious, irritable, labile at times, received Ativan x 2 topically, which seems to be helpful. She was restless, pulled out her IV, agitated; has a [place]. REVIEW OF SYSTEMS: Ambulation impaired. No CV, , eye, ENT or pulmonary system symptoms on review. Reliability poor. MENTAL STATUS EXAMINATION: Oriented to herself. Insight, judgment, recent and remote memory, attention, concentration, fund of knowledge poor, consistent with her diagnosis mentioned in my initial note. PLAN: Continue BuSpar 10 t.i.d., Ativan gel 0.5 mg daily, Cymbalta 30 mg a day, Ativan p.r.n. May need to restart low-dose Seroquel, but we will check with Dr. Gonzalez if we decide to do this given her questionable hypotension in the past, though I doubt it was due to Seroquel, but more consequent to a general medical condition. MAN Dominic MCNEIL MD DR: MARIVEL/yazmin JOB#: [id number] / [id number]
[2016-08-04] MEDS: CHOLECALCIFEROL (VITAMIN D3) 1,000 UNIT TABLET PO SCH (14:31)
[2016-08-04] MEDS: CYANOCOBALAMIN (VITAMIN B-12) 250 MCG TABLET PO SCH (14:31)
[2016-08-04 16:13] VITALS: BP 113/60
--- NOTE | 2016-08-04 16:37 | PN ---
DATE: 08/03/2016 PSYCHIATRIC PROGRESS NOTE This is late entry of 08/03/2016, covers elements not covered in my initial note. SUBJECTIVE: Overall, the patient remains confused, somewhat anxious, but better on 08/03/2016 than the day before, less anxious. REVIEW OF SYSTEMS: No CV, , pulmonary, eye, ENT system symptoms on review. Reliability poor. Ambulation impaired. MENTAL STATUS EXAMINATION: Oriented to herself. Insight, judgment, recent and remote memory, attention, concentration, fund of knowledge poor, consistent with her diagnosis mentioned in my initial note. PLAN: Continue BuSpar 10 t.i.d., Cymbalta 30 mg a day, Ativan gel p.r.n. Adjust further as clinically indicated. MAN Dominic MCNEIL MD DR: MARIVEL/yazmin JOB#: [id number] / [id number]
[2016-08-04] MEDS: FAMOTIDINE 20 MG TABLET PO SCH (19:10)
--- NOTE | 2016-08-04 23:00 | NUR ---
Behavior Intervention Response and Plan: BIRP Note: Behavior: Assumed Care of patient, patient located in day Room at shift change. Patient exhibited the following behavior anxious but better than over the weekend, cooperative with medications when they are crushed. Brief assessment on rounds of vital signs, medication needs, lab studies, and pain. Treatment plan problems 1-2 . Intervention: Patient assessed and the following interventions initiated safety checks 15 Minute Checks Cognitive Assessment , Head to toe Assessment , Medications. Response: After interactions and interventions patient responded in the following manner, calm, cooperative and compliant. Continue to assess behaviors and condition will continue to monitor throughout the shift as needed. Plan: Continue to monitor Master Treatment Plan for patient's progress toward short term goals of Decreased Agitation, Decreased Anxiety, terminal worker goals to return to previous living setting vs placement. Continue to assess patient for changes in above assessment. Monitor for medication needs, pain, and safety concerns. Hourly rounding performed to ensure safe environment.
--- NOTE | 2016-08-04 23:47 | PDOC ---
Exam Luis Eduardo Demential Exam: Luis Eduardo Note: Please also refer to the separate dictated note~for this date of service dictated separately.~Patient seen individually. Discussed the patient with Nursing staff reviewed the chart.~Reviewed interim history and current functioning. Reviewed vital signs,~Labs/ Radiology~and current medications noted below. Continue current treatment with the changes noted in the dictated addendum note Assessment: Vital Signs: Vital Signs Date Time Temp Pulse Resp B/P Pulse Ox O2 Delivery O2 Flow Rate FiO2 08/04/16 16:13 98.0 83 16 113/60 97 08/02/16 06:31 Room Air I&O Intake and Output 08/04/16 07:00 Intake Total 600 ml Balance 600 ml Intake Oral 600 ml Current Medications: Meds: Current Medications Buspirone HCl (Buspar) 10 mg TID PO Last administered on 08/04/16 19:10; Start 07/28/16 at 21:00 Escitalopram Oxalate (Lexapro) 10 mg DAILY PO Last administered on 07/29/16 08 :55; Start 07/29/16 at 09:00; Stop 07/29/16 at 18:02; Status DC Non-Formulary Medication 0.5 mg DAILY06 TOP ; Start 07/29/16 at 06:00; Stop at 08:00; Status DC Melatonin 6 mg PRN QHS PRN PO INSOMNIA Last administered on 07/29/16 19:34; Start 07/28/16 at 19:15 Lorazepam (Ativan) 0.5 mg PRN Q4HRS PRN TP ANXIETY / AGITATION Last administered on 07/29/16 10:39; Start 07/29/16 at 08:15; Stop 07/29/16 at 15:17 ; Status DC Multi-Ingredient Ointment (Analgesic [place]) 1 madhu PRN QID PRN TP MUSCLE PAIN; Start 07/28/16 at 19:00 Al Hydroxide/Mg Hydroxide (Mylanta Plus Xs) 15 ml PRN AFTMEALHC PRN PO DYSPEPSIA; Start 07/28/16 at 19:00 Magnesium Hydroxide (Milk Of Magnesia) 2,400 mg PRN QHS PRN PO CONSTIPATION; Start 07/28/16 at 19:00 Acetaminophen (Tylenol) 1,000 mg PRN Q4HRS PRN PO PAIN/ TEMP; Start 07/29/16 at 00:00; Stop 07/29/16 at 10:11; Status DC Aspirin (Aspirin Enteric Coated) 81 mg DAILY PO Last administered on 08/04/16 08:24; Start 07/29/16 at 09:00 Famotidine (Pepcid) 20 mg HS PO Last administered on 08/04/16 19:10; Start at 21:00 Fentanyl (Duragesic 25mcg/ Hr) 1 patch Q3DAYS TD Last administered on 08:34; Start 07/31/16 at 09:00 Loperamide HCl (Imodium) 2 mg PRN TID PRN PO DIARRHEA; Start 07/28/16 at 19:00 Polyethylene Glycol (miraLAX) 17 gm PRN DAILY PRN PO CONSTIPATION; Start at 09:00 Tramadol HCl (Ultram) 50 mg TID PRN PRN PO PAIN Last administered on 08/01/16 09:34; Start 07/28/16 at 19:00 Megestrol Acetate (Megace) 625 mg DAILY06 PO Last administered on 07/30/16 05: 10; Start 07/29/16 at 06:00; Stop 07/30/16 at 14:13; Status DC Lorazepam (Ativan) 0.5 mg DAILY06 TP Last administered on 08/04/16 06:14; Start 07/30/16 at 06:00 Acetaminophen (Tylenol) 1,000 mg Q8HRS PRN PO PAIN/ TEMP Last administered on 19:46; Start 07/29/16 at 14:00 Lorazepam (Ativan) 0.5 mg PRN Q4HRS PRN PO ANXIETY / AGITATION Last administered on 07/30/16 21:12; Start 07/29/16 at 15:00 Duloxetine HCl (Cymbalta) 30 mg DAILY PO Last administered on 08/04/16 08:24; Start 07/30/16 at 09:00 Quetiapine Fumarate 12.5 mg 12.5 mg BID92 PO Last administered on 07/30/16 12: 03; Start 07/30/16 at 09:00; Stop 07/30/16 at 18:18; Status DC Multivitamins/ Minerals/Folic Acid/Thiamine HCl/ Dextrose/Sodium Chloride ( Infuvite Adult/ Iv D5% - 1/2 NS) 1,011.2 ml @ 1,000 mls/ hr 1X ONCE IV Last administered on 07/30/16 14:34; Start 07/30/16 at 15:00; Stop 07/30/16 at 16:00 ; Status DC Lorazepam 0.5 mg 0.5 mg PRN Q4HRS PRN TP ANXIETY / AGITATION Last administered on 08/02/16 21:16; Start 07/30/16 at 14:30 Sodium Chloride 1,000 ml @ 150 mls/hr 1X ONCE IV Last administered on 17:00; Start 07/30/16 at 17:00; Stop 07/30/16 at 23:39; Status DC Sodium Chloride 1,000 ml @ 125 mls/hr Q8H IV Last administered on 07/31/16 08 :24; Start 07/31/16 at 00:00; Stop 07/31/16 at 14:13; Status DC Ceftriaxone Sodium/Sodium Chloride (Rocephin/Iv Sodium Chloride 0.9% 50ml) 50 ml @ 100 mls/hr Q24H IV Last administered on 08/01/16 23:23; Start 07/30/16 at 22:00; Stop 08/02/16 at 07:46; Status DC Fosfomycin Tromethamine (Monurol) 3 gm 1X ONCE PO Last administered on 12:03; Start 08/02/16 at 08:00; Stop 08/02/16 at 08:01; Status DC Quetiapine Fumarate (SEROquel) 12.5 mg BID92 PO Last administered on 08/04/16 14:31; Start 08/03/16 at 09:00 Vitamin D (Vitamin D3) 1,000 unit DAILYWSUP PO Last administered on 08/04/16 14:31; Start 08/03/16 at 17:00 Cyanocobalamin (Vitamin B-12) 250 mcg DAILYWSUP PO Last administered on 14:31; Start 08/03/16 at 17:00 Active Scripts Active Reported Polyethylene Glycol 3350 255 Gm Powder 17 Gm PO DAILY PRN Hydrocodone-Apap 5-325 (Hydrocodone Bit/Acetaminophen) 1 Each Tablet 1 Tab PO PRN Q4HRS PRN Nitrofurantoin [place]-Mcr 100 Mg (Nitrofurantoin Monohyd/M-Cryst) 100 Mg Capsule 1 Cap PO BID Tramadol Hcl (Tramadol HCl) 50 Mg Tablet 50 Mg PO TID PRN PRN Acetaminophen 500 Mg Tablet 2 Tab PO Q4HRS Lorazepam 2 Mg/1 Ml Disp.syrin 0.5 Mg TOP Q4HRS PRN Loperamide (Loperamide Hcl) 2 Mg Capsule 2 Mg PO TID PRN Megace Es (Megestrol Acetate) 625 Mg/5 Ml Oral.susp 625 Mg PO DAILY06 Lisinopril 10 Mg Tablet 10 Mg PO DAILY FENTANYL 25mcg/hr (Fentanyl) 1 Each Patch.td72 1 Patch TP Q3DAYS Famotidine 20 Mg Tablet 20 Mg PO HS Aspirin Ec (Aspirin) 81 Mg Tablet.dr 1 Tab PO DAILY Melatonin 5 Mg Tablet 5 Mg PO HS Lorazepam 2 Mg/1 Ml Disp.syrin 0.5 Mg TOP DAILY06 Escitalopram Oxalate 10 Mg Tablet 1 Tab PO DAILY Buspirone Hcl 10 Mg Tablet 1 Tab PO TID Diagnosis: Problems: (1) Dementia with behavioral disturbance (2) Anxiety disorder (3) Dementia in Alzheimer's disease with delusions (4) Dementia in Alzheimer's disease with depression (5) Dementia, vascular, with delusions (6) Dementia, vascular, with depression (7) Impulse control disorder DEISY MCNEIL MD Aug 04, 2016 23:47
[2016-08-05] MEDS: LORazepam TOPICAL 0.5 MG/ML GEL TP SCH (05:39)
[2016-08-05 06:19] VITALS: BP 141/67
--- NOTE | 2016-08-05 10:00 | NUR ---
THERAPEUTIC RECREATION GROUP NOTE TITLE :Butterflies and Packing Machine Tender Art ACTIVITY : Arts and Crafts GOAL : Increase socialization, fine motor skills, creativity DURATION : 30 minutes RESPONSE : Minimal participation. Pt. sat with the group and smiled often. She played with materials but did not follow directions to make a butterfly.
[2016-08-05] MEDS: busPIRone 10 MG TABLET. PO SCH ×3 (10:19→19:53)
[2016-08-05] MEDS: DULoxetine HCL 30 MG CAPSULE.DR PO SCH (10:20)
[2016-08-05] MEDS: QUEtiapine 25 MG TABLET. PO SCH ×2 (10:20→13:26)
[2016-08-05] MEDS: ASPIRIN ENTERIC COATED 81 MG TABLET.DR. PO SCH (10:20)
--- NOTE | 2016-08-05 10:53 | NUR ---
SW met with pt one on one, she reports she is from [place], pt appears pleasant however, very confused. Pt states she knows this sba underwriter and was asking about the new grocery store in [place]. Pt asked this sba underwriter if she had completed high school yet, and what was this writers plan. SW assured pt she had completed high school. SW tried to engage pt in the group activity. Pt unable complete simple tasks. Pt is very pleasant and smiling during the entire time SW was talking and working with her.
--- NOTE | 2016-08-05 11:15 | NUR ---
THERAPEUTIC RECREATION GROUP NOTE TITLE :Movement to Music: Flexibility ACTIVITY : Movement/ Exercise GOAL : Increase morale, attention, flexibility. Decrease stress/anxiety. DURATION : 40 Minutes RESPONSE : No participation.
--- NOTE | 2016-08-05 14:00 | NUR ---
Behavior Intervention Response and Plan: BIRP Note: Behavior: Assumed Care of patient, patient located in Day Room at shift change. Patient exhibited the following behavior Calm, Compliant, Cooperative. Brief assessment on rounds of vital signs, medication needs, lab studies, and pain. Treatment plan problems . Intervention: Patient assessed and the following interventions initiated safety checks 15 Minute Checks Call ivy in reach , Medications , Nutrition. Response: After interactions and interventions patient responded in the following manner, Calm , Disorganized ,Cooperative. Continue to assess behaviors and condition will continue to monitor throughout the shift as needed. Plan: Continue to monitor Master Treatment Plan for patient's progress toward short term goals of Decreased Agitation, Decreased Anxiety, usp goals to return to previous living setting vs placement. Continue to assess patient for changes in above assessment. Monitor for medication needs, pain, and safety concerns. Hourly rounding performed to ensure safe environment.
--- NOTE | 2016-08-05 14:00 | NUR ---
THERAPEUTIC RECREATION GROUP NOTE TITLE :Sing along with M[place] ACTIVITY : Music GOAL : Increase socialization, elevate mood, stimulate memory DURATION : 60 Minutes RESPONSE : Minimal participation. Pt. sat with the group the entire time and occasionally followed along with lyrics sheet. She did not sing but was polite.
[2016-08-05 16:22] VITALS: BP 108/53
[2016-08-05 16:38] LABS: HEMATOCRIT 33.1 % (36.0-47.0); HEMOGLOBIN 10.9 g/dL (12.0-15.5); RED BLOOD COUNT 3.5 x10^6/uL (3.50-5.40); RED CELL DISTRIBUTION WIDTH 14.3 % (11.5-14.5); WHITE BLOOD COUNT 6.7 x10^3/uL (4.0-11.0)
[2016-08-05 17:00] LABS: ALBUMIN/GLOBULIN RATIO 0.8 (1.0-1.7); CALCIUM 8.9 mg/dL (8.5-10.1); CREATININE 2.1 mg/dL (0.6-1.0); GFR 22.5; POTASSIUM 4.9 mmol/L (3.5-5.1); TOTAL BILIRUBIN 0.3 mg/dL (0.2-1.0)
--- NOTE | 2016-08-05 17:00 | NUR ---
Informed Dr. Arauz of pt temp. 99.5 and wet cough, lungs dim bilat bases and results of labs. BUN 44, Creat 2.1, Dr. Arauz reviewed all labs at this time. Per Dr. Arauz- ordered Chest X-ray. Will continue to monitor and report.
--- NOTE | 2016-08-05 17:35 | NUR ---
Pt anxious, redirected numerous times without success. PRN Ativan given, will continue to monitor and report.
[2016-08-05] MEDS: CYANOCOBALAMIN (VITAMIN B-12) 250 MCG TABLET PO SCH (17:37)
[2016-08-05] MEDS: LORazepam 0.5 MG TABLET PO PRN (17:37)
[2016-08-05] MEDS: CHOLECALCIFEROL (VITAMIN D3) 1,000 UNIT TABLET PO SCH (17:37)
[2016-08-05] MEDS: FAMOTIDINE 20 MG TABLET PO SCH (19:53)
[2016-08-05] MEDS: ACETAMINOPHEN 500 MG TABLET PO PRN (19:53)
--- NOTE | 2016-08-05 21:45 | PDOC ---
Exam Luis Eduardo Demential Exam: Luis Eduardo Note: Please also refer to the separate dictated note~for this date of service dictated separately.~Patient seen individually. Discussed the patient with Nursing staff reviewed the chart.~Reviewed interim history and current functioning. Reviewed vital signs,~Labs/ Radiology~and current medications noted below. Continue current treatment with the changes noted in the dictated addendum note Assessment: Vital Signs: Vital Signs Date Time Temp Pulse Resp B/P Pulse Ox O2 Delivery O2 Flow Rate FiO2 08/05/16 16:22 99.5 72 20 108/53 97 08/02/16 06:31 Room Air I&O Intake and Output 08/05/16 07:00 Intake Total 600 ml Balance 600 ml Intake Oral 600 ml # Bowel Movements 1 Labs: Laboratory Tests Test 08/05/16 16:30 White Blood Count 6.7x10^3/uL (4.0-11.0) Red Blood Count 3.50x10^6/uL (3.50-5.40) Hemoglobin 10.9g/dL (12.0-15.5) L Hematocrit 33.1% (36.0-47.0) L Mean Corpuscular Volume 95fL (79-100) Mean Corpuscular Hemoglobin 31pg (25-35) Mean Corpuscular Hemoglobin Concent 33g/dL (31-37) Red Cell Distribution Width 14.3% (11.5-14.5) Platelet Count 175x10^3/uL (140-400) Sodium Level 137mmol/L (136-145) Potassium Level 4.9mmol/L (3.5-5.1) Chloride Level 107mmol/L (98-107) Carbon Dioxide Level 21mmol/L (21-32) Anion Gap 9 (6-14) Blood Urea Nitrogen 44mg/dL (7-20) H Creatinine 2.1mg/dL (0.6-1.0) H Estimated GFR (Cockcroft-Gault) 22.5 BUN/Creatinine Ratio 21 (6-20) H Glucose Level 101mg/dL (70-99) H Calcium Level 8.9mg/dL (8.5-10.1) Total Bilirubin 0.3mg/dL (0.2-1.0) Aspartate Amino Transferase (AST) 18U/L (15-37) Alanine Aminotransferase (ALT) 19U/L (14-59) Alkaline Phosphatase 67U/L (46-116) Total Protein 7.0g/dL (6.4-8.2) Albumin 3.0g/dL (3.4-5.0) L Albumin/Globulin Ratio 0.8 (1.0-1.7) L Current Medications: Meds: Current Medications Buspirone HCl (Buspar) 10 mg TID PO Last administered on 08/05/16 19:53; Start 07/28/16 at 21:00 Escitalopram Oxalate (Lexapro) 10 mg DAILY PO Last administered on 07/29/16 08 :55; Start 07/29/16 at 09:00; Stop 07/29/16 at 18:02; Status DC Non-Formulary Medication 0.5 mg DAILY06 TOP ; Start 07/29/16 at 06:00; Stop at 08:00; Status DC Melatonin 6 mg PRN QHS PRN PO INSOMNIA Last administered on 07/29/16 19:34; Start 07/28/16 at 19:15 Lorazepam (Ativan) 0.5 mg PRN Q4HRS PRN TP ANXIETY / AGITATION Last administered on 07/29/16 10:39; Start 07/29/16 at 08:15; Stop 07/29/16 at 15:17 ; Status DC Multi-Ingredient Ointment (Analgesic [place]) 1 madhu PRN QID PRN TP MUSCLE PAIN; Start 07/28/16 at 19:00 Al Hydroxide/Mg Hydroxide (Mylanta Plus Xs) 15 ml PRN AFTMEALHC PRN PO DYSPEPSIA; Start 07/28/16 at 19:00 Magnesium Hydroxide (Milk Of Magnesia) 2,400 mg PRN QHS PRN PO CONSTIPATION; Start 07/28/16 at 19:00 Acetaminophen (Tylenol) 1,000 mg PRN Q4HRS PRN PO PAIN/ TEMP; Start 07/29/16 at 00:00; Stop 07/29/16 at 10:11; Status DC Aspirin (Aspirin Enteric Coated) 81 mg DAILY PO Last administered on 08/05/16 10:20; Start 07/29/16 at 09:00 Famotidine (Pepcid) 20 mg HS PO Last administered on 08/05/16 19:53; Start at 21:00 Fentanyl (Duragesic 25mcg/ Hr) 1 patch Q3DAYS TD Last administered on 08:34; Start 07/31/16 at 09:00 Loperamide HCl (Imodium) 2 mg PRN TID PRN PO DIARRHEA; Start 07/28/16 at 19:00 Polyethylene Glycol (miraLAX) 17 gm PRN DAILY PRN PO CONSTIPATION; Start at 09:00 Tramadol HCl (Ultram) 50 mg TID PRN PRN PO PAIN Last administered on 08/01/16 09:34; Start 07/28/16 at 19:00 Megestrol Acetate (Megace) 625 mg DAILY06 PO Last administered on 07/30/16 05: 10; Start 07/29/16 at 06:00; Stop 07/30/16 at 14:13; Status DC Lorazepam (Ativan) 0.5 mg DAILY06 TP Last administered on 08/05/16 05:39; Start 07/30/16 at 06:00 Acetaminophen (Tylenol) 1,000 mg Q8HRS PRN PO PAIN/ TEMP Last administered on 19:53; Start 07/29/16 at 14:00 Lorazepam (Ativan) 0.5 mg PRN Q4HRS PRN PO ANXIETY / AGITATION Last administered on 08/05/16 17:37; Start 07/29/16 at 15:00 Duloxetine HCl (Cymbalta) 30 mg DAILY PO Last administered on 08/05/16 10:20; Start 07/30/16 at 09:00 Quetiapine Fumarate 12.5 mg 12.5 mg BID92 PO Last administered on 07/30/16 12: 03; Start 07/30/16 at 09:00; Stop 07/30/16 at 18:18; Status DC Multivitamins/ Minerals/Folic Acid/Thiamine HCl/ Dextrose/Sodium Chloride ( Infuvite Adult/ Iv D5% - 1/2 NS) 1,011.2 ml @ 1,000 mls/ hr 1X ONCE IV Last administered on 07/30/16 14:34; Start 07/30/16 at 15:00; Stop 07/30/16 at 16:00 ; Status DC Lorazepam 0.5 mg 0.5 mg PRN Q4HRS PRN TP ANXIETY / AGITATION Last administered on 08/02/16 21:16; Start 07/30/16 at 14:30 Sodium Chloride 1,000 ml @ 150 mls/hr 1X ONCE IV Last administered on 17:00; Start 07/30/16 at 17:00; Stop 07/30/16 at 23:39; Status DC Sodium Chloride 1,000 ml @ 125 mls/hr Q8H IV Last administered on 07/31/16 08 :24; Start 07/31/16 at 00:00; Stop 07/31/16 at 14:13; Status DC Ceftriaxone Sodium/Sodium Chloride (Rocephin/Iv Sodium Chloride 0.9% 50ml) 50 ml @ 100 mls/hr Q24H IV Last administered on 08/01/16 23:23; Start 07/30/16 at 22:00; Stop 08/02/16 at 07:46; Status DC Fosfomycin Tromethamine (Monurol) 3 gm 1X ONCE PO Last administered on 12:03; Start 08/02/16 at 08:00; Stop 08/02/16 at 08:01; Status DC Quetiapine Fumarate (SEROquel) 12.5 mg BID92 PO Last administered on 08/05/16 13:26; Start 08/03/16 at 09:00 Vitamin D (Vitamin D3) 1,000 unit DAILYWSUP PO Last administered on 08/05/16 17:37; Start 08/03/16 at 17:00 Cyanocobalamin (Vitamin B-12) 250 mcg DAILYWSUP PO Last administered on 17:37; Start 08/03/16 at 17:00 Active Scripts Active Reported Polyethylene Glycol 3350 255 Gm Powder 17 Gm PO DAILY PRN Hydrocodone-Apap 5-325 (Hydrocodone Bit/Acetaminophen) 1 Each Tablet 1 Tab PO PRN Q4HRS PRN Nitrofurantoin [place]-Mcr 100 Mg (Nitrofurantoin Monohyd/M-Cryst) 100 Mg Capsule 1 Cap PO BID Tramadol Hcl (Tramadol HCl) 50 Mg Tablet 50 Mg PO TID PRN PRN Acetaminophen 500 Mg Tablet 2 Tab PO Q4HRS Lorazepam 2 Mg/1 Ml Disp.syrin 0.5 Mg TOP Q4HRS PRN Loperamide (Loperamide Hcl) 2 Mg Capsule 2 Mg PO TID PRN Megace Es (Megestrol Acetate) 625 Mg/5 Ml Oral.susp 625 Mg PO DAILY06 Lisinopril 10 Mg Tablet 10 Mg PO DAILY FENTANYL 25mcg/hr (Fentanyl) 1 Each Patch.td72 1 Patch TP Q3DAYS Famotidine 20 Mg Tablet 20 Mg PO HS Aspirin Ec (Aspirin) 81 Mg Tablet.dr 1 Tab PO DAILY Melatonin 5 Mg Tablet 5 Mg PO HS Lorazepam 2 Mg/1 Ml Disp.syrin 0.5 Mg TOP DAILY06 Escitalopram Oxalate 10 Mg Tablet 1 Tab PO DAILY Buspirone Hcl 10 Mg Tablet 1 Tab PO TID Diagnosis: Problems: (1) UTI (urinary tract infection) (2) Chronic renal insufficiency (3) Dementia with behavioral disturbance (4) Anxiety disorder (5) Dementia in Alzheimer's disease with delusions (6) Dementia in Alzheimer's disease with depression (7) Dementia, vascular, with delusions (8) Dementia, vascular, with depression (9) Impulse control disorder DEISY MCNEIL MD Aug 05, 2016 21:45
[2016-08-06] MEDS: LORazepam TOPICAL 0.5 MG/ML GEL TP SCH (06:05)
[2016-08-06 06:32] VITALS: BP 151/63
--- NOTE | 2016-08-06 06:38 | NUR ---
Behavior Intervention Response and Plan: BIRP Note: Behavior: Assumed Care of patient, patient located in Day Room at shift change. Patient exhibited the following behavior Calm, Compliant, Cooperative. Brief assessment on rounds of vital signs, medication needs, lab studies, and pain. Treatment plan problems Dementia with BD and Fall Risk. Intervention: Patient assessed and the following interventions initiated safety checks 15 Minute Checks Cognitive Assessment , Medications , Personal Alarm in place. Response: After interactions and interventions patient responded in the following manner, Calm , Compliant ,Cooperative. Continue to assess behaviors and condition will continue to monitor throughout the shift as needed. 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 Continue to assess patient for changes in above assessment. Monitor for medication needs, pain, and safety concerns. Hourly rounding performed to ensure safe environment.
--- NOTE | 2016-08-06 07:19 | RAD ---
Chest, 2 views, 08/05/2016: History: Cough The heart size is normal. Coronary artery and mitral annular calcifications are present. There is moderate calcific plaquing of the thoracic aorta. The pulmonary vascularity is normal. There is a calcified granuloma in the right midlung. No acute infiltrates are seen. There is no evidence of pleural fluid. Moderate spurring is present in the spine. IMPRESSION: 1. Moderate calcific plaquing of the aorta and coronary arteries. 2. No acute cardiopulmonary abnormality is detected.
--- NOTE | 2016-08-06 09:15 | PN ---
DATE: This is a late entry for 08/04/2016, covers elements not covered in my initial note. SUBJECTIVE: The patient was quite anxious with cares the previous night, yelling, better during the day on 08/05/2016 than the day before. REVIEW OF SYSTEMS: Ambulation impaired. No CV, , pulmonary, eye system symptoms on review. MENTAL STATUS EXAM: Oriented to herself. Insight, judgment, recent and remote memory, attention, concentration, fund of knowledge poor, consistent with her diagnosis mentioned in my initial note. IMPRESSION: Major neurocognitive disorder, Alzheimer, vascular with depression, delusion, behavioral disturbance. Status post urinary tract infection. PLAN: Maintain Cymbalta 30 mg a day, BuSpar 10 t.i.d., Ativan gel 0.5 mg daily plus p.r.n., Seroquel 12.5 b.i.d. Adjust further as clinically indicated. MAN Dominic MCNEIL MD DR: MARIVEL/yazmin JOB#: [id number] / [id number]
[2016-08-06] MEDS: ASPIRIN ENTERIC COATED 81 MG TABLET.DR. PO SCH (09:25)
[2016-08-06] MEDS: QUEtiapine 25 MG TABLET. PO SCH ×2 (09:25→14:53)
[2016-08-06] MEDS: DULoxetine HCL 30 MG CAPSULE.DR PO SCH (09:25)
[2016-08-06] MEDS: busPIRone 10 MG TABLET. PO SCH ×3 (09:26→20:51)
[2016-08-06] MEDS: fentaNYL 25MCG/HR 1 PATCH PATCH TD SCH (09:30)
--- NOTE | 2016-08-06 14:00 | NUR ---
Behavior Intervention Response and Plan: BIRP Note: Behavior: Assumed Care of patient, patient located in Day Room at shift change. Patient exhibited the following behavior Calm, Disorganized, Compliant. Brief assessment on rounds of vital signs, medication needs, lab studies, and pain. Treatment plan problems . Intervention: Patient assessed and the following interventions initiated safety checks 15 Minute Checks Call ivy in reach , Medications , Nutrition. Response: After interactions and interventions patient responded in the following manner, Calm , Disorganized ,Compliant. Continue to assess behaviors and condition will continue to monitor throughout the shift as needed. Plan: Continue to monitor Master Treatment Plan for patient's progress toward short term goals of Decreased Agitation, Decreased Anxiety, jail goals to return to previous living setting vs placement. Continue to assess patient for changes in above assessment. Monitor for medication needs, pain, and safety concerns. Hourly rounding performed to ensure safe environment.
[2016-08-06] MEDS: CHOLECALCIFEROL (VITAMIN D3) 1,000 UNIT TABLET PO SCH (17:36)
[2016-08-06] MEDS: CYANOCOBALAMIN (VITAMIN B-12) 250 MCG TABLET PO SCH (17:36)
[2016-08-06] MEDS: FAMOTIDINE 20 MG TABLET PO SCH (20:51)
[2016-08-06] MEDS: ACETAMINOPHEN 500 MG TABLET PO PRN (20:51)
--- NOTE | 2016-08-06 21:11 | PDOC ---
Exam Luis Eduardo Demential Exam: Luis Eduardo Note: Please also refer to the separate dictated note~for this date of service dictated separately.~Patient seen individually. Discussed the patient with Nursing staff reviewed the chart.~Reviewed interim history and current functioning. Reviewed vital signs,~Labs/ Radiology~and current medications noted below. Continue current treatment with the changes noted in the dictated addendum note Assessment: Vital Signs: Vital Signs Date Time Temp Pulse Resp B/P Pulse Ox O2 Delivery O2 Flow Rate FiO2 08/06/16 13:40 97 08/06/16 09:30 20 Room Air 08/06/16 06:32 97.3 78 151/63 I&O Intake and Output 08/06/16 07:00 Intake Total 1320 ml Balance 1320 ml Intake Oral 1320 ml Current Medications: Meds: Current Medications Buspirone HCl (Buspar) 10 mg TID PO Last administered on 08/06/16 20:51; Start 07/28/16 at 21:00 Escitalopram Oxalate (Lexapro) 10 mg DAILY PO Last administered on 07/29/16 08 :55; Start 07/29/16 at 09:00; Stop 07/29/16 at 18:02; Status DC Non-Formulary Medication 0.5 mg DAILY06 TOP ; Start 07/29/16 at 06:00; Stop at 08:00; Status DC Melatonin 6 mg PRN QHS PRN PO INSOMNIA Last administered on 07/29/16 19:34; Start 07/28/16 at 19:15 Lorazepam (Ativan) 0.5 mg PRN Q4HRS PRN TP ANXIETY / AGITATION Last administered on 07/29/16 10:39; Start 07/29/16 at 08:15; Stop 07/29/16 at 15:17 ; Status DC Multi-Ingredient Ointment (Analgesic [place]) 1 madhu PRN QID PRN TP MUSCLE PAIN; Start 07/28/16 at 19:00 Al Hydroxide/Mg Hydroxide (Mylanta Plus Xs) 15 ml PRN AFTMEALHC PRN PO DYSPEPSIA; Start 07/28/16 at 19:00 Magnesium Hydroxide (Milk Of Magnesia) 2,400 mg PRN QHS PRN PO CONSTIPATION; Start 07/28/16 at 19:00 Acetaminophen (Tylenol) 1,000 mg PRN Q4HRS PRN PO PAIN/ TEMP; Start 07/29/16 at 00:00; Stop 07/29/16 at 10:11; Status DC Aspirin (Aspirin Enteric Coated) 81 mg DAILY PO Last administered on 08/06/16 09:25; Start 07/29/16 at 09:00 Famotidine (Pepcid) 20 mg HS PO Last administered on 08/06/16 20:51; Start at 21:00 Fentanyl (Duragesic 25mcg/ Hr) 1 patch Q3DAYS TD Last administered on 09:30; Start 07/31/16 at 09:00 Loperamide HCl (Imodium) 2 mg PRN TID PRN PO DIARRHEA; Start 07/28/16 at 19:00 Polyethylene Glycol (miraLAX) 17 gm PRN DAILY PRN PO CONSTIPATION; Start at 09:00 Tramadol HCl (Ultram) 50 mg TID PRN PRN PO PAIN Last administered on 08/01/16 09:34; Start 07/28/16 at 19:00 Megestrol Acetate (Megace) 625 mg DAILY06 PO Last administered on 07/30/16 05: 10; Start 07/29/16 at 06:00; Stop 07/30/16 at 14:13; Status DC Lorazepam (Ativan) 0.5 mg DAILY06 TP Last administered on 08/06/16 06:05; Start 07/30/16 at 06:00 Acetaminophen (Tylenol) 1,000 mg Q8HRS PRN PO PAIN/ TEMP Last administered on 20:51; Start 07/29/16 at 14:00 Lorazepam (Ativan) 0.5 mg PRN Q4HRS PRN PO ANXIETY / AGITATION Last administered on 08/05/16 17:37; Start 07/29/16 at 15:00 Duloxetine HCl (Cymbalta) 30 mg DAILY PO Last administered on 08/06/16 09:25; Start 07/30/16 at 09:00 Quetiapine Fumarate 12.5 mg 12.5 mg BID92 PO Last administered on 07/30/16 12: 03; Start 07/30/16 at 09:00; Stop 07/30/16 at 18:18; Status DC Multivitamins/ Minerals/Folic Acid/Thiamine HCl/ Dextrose/Sodium Chloride ( Infuvite Adult/ Iv D5% - 1/2 NS) 1,011.2 ml @ 1,000 mls/ hr 1X ONCE IV Last administered on 07/30/16 14:34; Start 07/30/16 at 15:00; Stop 07/30/16 at 16:00 ; Status DC Lorazepam 0.5 mg 0.5 mg PRN Q4HRS PRN TP ANXIETY / AGITATION Last administered on 08/02/16 21:16; Start 07/30/16 at 14:30 Sodium Chloride 1,000 ml @ 150 mls/hr 1X ONCE IV Last administered on 17:00; Start 07/30/16 at 17:00; Stop 07/30/16 at 23:39; Status DC Sodium Chloride 1,000 ml @ 125 mls/hr Q8H IV Last administered on 07/31/16 08 :24; Start 07/31/16 at 00:00; Stop 07/31/16 at 14:13; Status DC Ceftriaxone Sodium/Sodium Chloride (Rocephin/Iv Sodium Chloride 0.9% 50ml) 50 ml @ 100 mls/hr Q24H IV Last administered on 08/01/16 23:23; Start 07/30/16 at 22:00; Stop 08/02/16 at 07:46; Status DC Fosfomycin Tromethamine (Monurol) 3 gm 1X ONCE PO Last administered on 12:03; Start 08/02/16 at 08:00; Stop 08/02/16 at 08:01; Status DC Quetiapine Fumarate (SEROquel) 12.5 mg BID92 PO Last administered on 08/06/16 14:53; Start 08/03/16 at 09:00 Vitamin D (Vitamin D3) 1,000 unit DAILYWSUP PO Last administered on 08/06/16 17:36; Start 08/03/16 at 17:00 Cyanocobalamin (Vitamin B-12) 250 mcg DAILYWSUP PO Last administered on 17:36; Start 08/03/16 at 17:00 Active Scripts Active Reported Polyethylene Glycol 3350 255 Gm Powder 17 Gm PO DAILY PRN Hydrocodone-Apap 5-325 (Hydrocodone Bit/Acetaminophen) 1 Each Tablet 1 Tab PO PRN Q4HRS PRN Nitrofurantoin [place]-Mcr 100 Mg (Nitrofurantoin Monohyd/M-Cryst) 100 Mg Capsule 1 Cap PO BID Tramadol Hcl (Tramadol HCl) 50 Mg Tablet 50 Mg PO TID PRN PRN Acetaminophen 500 Mg Tablet 2 Tab PO Q4HRS Lorazepam 2 Mg/1 Ml Disp.syrin 0.5 Mg TOP Q4HRS PRN Loperamide (Loperamide Hcl) 2 Mg Capsule 2 Mg PO TID PRN Megace Es (Megestrol Acetate) 625 Mg/5 Ml Oral.susp 625 Mg PO DAILY06 Lisinopril 10 Mg Tablet 10 Mg PO DAILY FENTANYL 25mcg/hr (Fentanyl) 1 Each Patch.td72 1 Patch TP Q3DAYS Famotidine 20 Mg Tablet 20 Mg PO HS Aspirin Ec (Aspirin) 81 Mg Tablet.dr 1 Tab PO DAILY Melatonin 5 Mg Tablet 5 Mg PO HS Lorazepam 2 Mg/1 Ml Disp.syrin 0.5 Mg TOP DAILY06 Escitalopram Oxalate 10 Mg Tablet 1 Tab PO DAILY Buspirone Hcl 10 Mg Tablet 1 Tab PO TID Diagnosis: Problems: (1) UTI (urinary tract infection) (2) Chronic renal insufficiency (3) Dementia with behavioral disturbance (4) Anxiety disorder (5) 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
--- NOTE | 2016-08-06 22:36 | NUR ---
Behavior Intervention Response and Plan: BIRP Note: Behavior: Assumed Care of patient, patient located in Day Room at shift change. Patient exhibited the following behavior Calm, Withdrawn, Compliant. Brief assessment on rounds of vital signs, medication needs, lab studies, and pain. Treatment plan problems Dementia with BD and Fall Risk. Intervention: Patient assessed and the following interventions initiated safety checks 15 Minute Checks Personal Alarm in place , Cognitive Assessment , Medications. Response: After interactions and interventions patient responded in the following manner, Calm , Compliant ,Disorganized. Continue to assess behaviors and condition will continue to monitor throughout the shift as needed. Plan: Continue to monitor Master Treatment Plan for patient's progress toward short term goals of Decreased Agitation, Decreased Anxiety, prison goals to return to previous living setting vs placement. Continue to assess patient for changes in above assessment. Monitor for medication needs, pain, and safety concerns. Hourly rounding performed to ensure safe environment.
[2016-08-07] MEDS: LORazepam TOPICAL 0.5 MG/ML GEL TP SCH ×2 (05:14→11:58)
[2016-08-07 06:48] VITALS: BP 148/60
--- NOTE | 2016-08-07 08:36 | PN ---
DATE: 08/05/2016 This is a late entry for 08/05/2016 and covers elements not covered in my initial note. She has had a wet cough. BUN has raised at 44. Chest x-ray was done, I will defer medical management to Dr. Arauz. She takes her meds crushed. Behaviorally, she is better, less labile, still anxious, repeatedly calling help, help for ADLs. Received Ativan before a chest x-ray due to increased anxiety. REVIEW OF SYSTEMS: Difficulty with her ambulation and cough. No CV, , eye, ENT system symptoms on review. MENTAL STATUS EXAM: Oriented to herself. Insight, judgment, recent and remote memory, attention, concentration, fund of knowledge poor, consistent with her diagnosis mentioned in my initial note. IMPRESSION: Major neurocognitive disorder, Alzheimer, vascular with depression, delusion, behavioral disturbance. Rest unchanged. PLAN: Continue Cymbalta 30 mg a day, BuSpar 10 t.i.d., Ativan gel once a day plus p.r.n., Seroquel 12.5 b.i.d. Adjust further as clinically indicated. MAN Dominic MCNEIL MD DR: MARIVEL/yazmin JOB#: [id number] / [id number]
[2016-08-07] MEDS: QUEtiapine 25 MG TABLET. PO SCH ×2 (09:27→15:00)
[2016-08-07] MEDS: DULoxetine HCL 30 MG CAPSULE.DR PO SCH (09:27)
[2016-08-07] MEDS: busPIRone 10 MG TABLET. PO SCH ×3 (09:27→20:03)
[2016-08-07] MEDS: ASPIRIN ENTERIC COATED 81 MG TABLET.DR. PO SCH (09:27)
--- NOTE | 2016-08-07 11:15 | NUR ---
THERAPEUTIC RECREATION GROUP NOTE TITLE :Movement to Music: Flexibility ACTIVITY : Movement/ Exercise GOAL : Increase morale, attention, flexibility. Decrease stress/anxiety. DURATION : 40 Minutes RESPONSE : No participation
--- NOTE | 2016-08-07 11:16 | NUR ---
Behavior Intervention Response and Plan: BIRP Note: Behavior: Assumed Care of patient, patient located in Day Room at shift change. Patient exhibited the following behavior Disorganized, Cooperative, Calm. Brief assessment on rounds of vital signs, medication needs, lab studies, and pain. Treatment plan problems . Intervention: Patient assessed and the following interventions initiated safety checks 15 Minute Checks Personal Alarm in place , Cognitive Assessment , Head to toe Assessment. Response: After interactions and interventions patient responded in the following manner, Disorganized , Calm ,Compliant. Continue to assess behaviors and condition will continue to monitor throughout the shift as needed. Plan: Continue to monitor Master Treatment Plan for patient's progress toward short term goals of Decreased Anxiety, Improved Mood, long term care social worker goals to return to previous living setting vs placement. Continue to assess patient for changes in above assessment. Monitor for medication needs, pain, and safety concerns. Hourly rounding performed to ensure safe environment.
[2016-08-07] MEDS: LORazepam 0.5 MG TABLET PO PRN ×2 (12:08→17:14)
--- NOTE | 2016-08-07 12:11 | NUR ---
Pt had been sitting calmly in dayroom during group. Pt began screaming "oh, god. please help me. oh god" repeatedly. Redirection unsuccessful. PRN Ativan administered. Family on unit to visit during visiting hours. Family unable to stay d/t pt's continuously yelling. Pt unable to go into dining room for lunch. Pt currently sitting in front of nurses' station yelling. Will continue to monitor.
--- NOTE | 2016-08-07 14:00 | NUR ---
THERAPEUTIC RECREATION GROUP NOTE TITLE :Balloon Bop with Noodles ACTIVITY : Activities and Games GOAL : Increase socialization and alertness. Maintain/improve mental and physical functioning. DURATION : 30 minutes RESPONSE : No participation
[2016-08-07 15:50] VITALS: BP 113/53
[2016-08-07] MEDS: CYANOCOBALAMIN (VITAMIN B-12) 250 MCG TABLET PO SCH (17:00)
[2016-08-07] MEDS: CHOLECALCIFEROL (VITAMIN D3) 1,000 UNIT TABLET PO SCH (17:00)
[2016-08-07] MEDS: FAMOTIDINE 20 MG TABLET PO SCH (20:04)
--- NOTE | 2016-08-07 21:13 | PDOC ---
Exam Luis Eduardo Demential Exam: Luis Eduardo Note: Please also refer to the separate dictated note~for this date of service dictated separately.~Patient seen individually. Discussed the patient with Nursing staff reviewed the chart.~Reviewed interim history and current functioning. Reviewed vital signs,~Labs/ Radiology~and current medications noted below. Continue current treatment with the changes noted in the dictated addendum note Assessment: Vital Signs: Vital Signs Date Time Temp Pulse Resp B/P Pulse Ox O2 Delivery O2 Flow Rate FiO2 08/07/16 15:50 97.8 73 20 113/53 97 08/06/16 09:30 Room Air I&O Intake and Output 08/07/16 07:00 Intake Total 840 ml Balance 840 ml Intake Oral 840 ml # Bowel Movements 1 Current Medications: Meds: Current Medications Buspirone HCl (Buspar) 10 mg TID PO Last administered on 08/07/16 20:03; Start 07/28/16 at 21:00 Escitalopram Oxalate (Lexapro) 10 mg DAILY PO Last administered on 07/29/16 08 :55; Start 07/29/16 at 09:00; Stop 07/29/16 at 18:02; Status DC Non-Formulary Medication 0.5 mg DAILY06 TOP ; Start 07/29/16 at 06:00; Stop at 08:00; Status DC Melatonin 6 mg PRN QHS PRN PO INSOMNIA Last administered on 07/29/16 19:34; Start 07/28/16 at 19:15 Lorazepam (Ativan) 0.5 mg PRN Q4HRS PRN TP ANXIETY / AGITATION Last administered on 07/29/16 10:39; Start 07/29/16 at 08:15; Stop 07/29/16 at 15:17 ; Status DC Multi-Ingredient Ointment (Analgesic [place]) 1 madhu PRN QID PRN TP MUSCLE PAIN; Start 07/28/16 at 19:00 Al Hydroxide/Mg Hydroxide (Mylanta Plus Xs) 15 ml PRN AFTMEALHC PRN PO DYSPEPSIA; Start 07/28/16 at 19:00 Magnesium Hydroxide (Milk Of Magnesia) 2,400 mg PRN QHS PRN PO CONSTIPATION; Start 07/28/16 at 19:00 Acetaminophen (Tylenol) 1,000 mg PRN Q4HRS PRN PO PAIN/ TEMP; Start 07/29/16 at 00:00; Stop 07/29/16 at 10:11; Status DC Aspirin (Aspirin Enteric Coated) 81 mg DAILY PO Last administered on 08/07/16 09:27; Start 07/29/16 at 09:00 Famotidine (Pepcid) 20 mg HS PO Last administered on 08/07/16 20:04; Start at 21:00 Fentanyl (Duragesic 25mcg/ Hr) 1 patch Q3DAYS TD Last administered on 09:30; Start 07/31/16 at 09:00 Loperamide HCl (Imodium) 2 mg PRN TID PRN PO DIARRHEA; Start 07/28/16 at 19:00 Polyethylene Glycol (miraLAX) 17 gm PRN DAILY PRN PO CONSTIPATION; Start at 09:00 Tramadol HCl (Ultram) 50 mg TID PRN PRN PO PAIN Last administered on 08/01/16 09:34; Start 07/28/16 at 19:00 Megestrol Acetate (Megace) 625 mg DAILY06 PO Last administered on 07/30/16 05: 10; Start 07/29/16 at 06:00; Stop 07/30/16 at 14:13; Status DC Lorazepam (Ativan) 0.5 mg DAILY06 TP Last administered on 08/07/16 05:14; Start 07/30/16 at 06:00 Acetaminophen (Tylenol) 1,000 mg Q8HRS PRN PO PAIN/ TEMP Last administered on 20:51; Start 07/29/16 at 14:00 Lorazepam (Ativan) 0.5 mg PRN Q4HRS PRN PO ANXIETY / AGITATION Last administered on 08/07/16 17:14; Start 07/29/16 at 15:00 Duloxetine HCl (Cymbalta) 30 mg DAILY PO Last administered on 08/07/16 09:27; Start 07/30/16 at 09:00 Quetiapine Fumarate 12.5 mg 12.5 mg BID92 PO Last administered on 07/30/16 12: 03; Start 07/30/16 at 09:00; Stop 07/30/16 at 18:18; Status DC Multivitamins/ Minerals/Folic Acid/Thiamine HCl/ Dextrose/Sodium Chloride ( Infuvite Adult/ Iv D5% - 1/2 NS) 1,011.2 ml @ 1,000 mls/ hr 1X ONCE IV Last administered on 07/30/16 14:34; Start 07/30/16 at 15:00; Stop 07/30/16 at 16:00 ; Status DC Lorazepam 0.5 mg 0.5 mg PRN Q4HRS PRN TP ANXIETY / AGITATION Last administered on 08/02/16 21:16; Start 07/30/16 at 14:30 Sodium Chloride 1,000 ml @ 150 mls/hr 1X ONCE IV Last administered on 17:00; Start 07/30/16 at 17:00; Stop 07/30/16 at 23:39; Status DC Sodium Chloride 1,000 ml @ 125 mls/hr Q8H IV Last administered on 07/31/16 08 :24; Start 07/31/16 at 00:00; Stop 07/31/16 at 14:13; Status DC Ceftriaxone Sodium/Sodium Chloride (Rocephin/Iv Sodium Chloride 0.9% 50ml) 50 ml @ 100 mls/hr Q24H IV Last administered on 08/01/16 23:23; Start 07/30/16 at 22:00; Stop 08/02/16 at 07:46; Status DC Fosfomycin Tromethamine (Monurol) 3 gm 1X ONCE PO Last administered on 12:03; Start 08/02/16 at 08:00; Stop 08/02/16 at 08:01; Status DC Quetiapine Fumarate (SEROquel) 12.5 mg BID92 PO Last administered on 08/07/16 15:00; Start 08/03/16 at 09:00 Vitamin D (Vitamin D3) 1,000 unit DAILYWSUP PO Last administered on 08/06/16 17:36; Start 08/03/16 at 17:00 Cyanocobalamin (Vitamin B-12) 250 mcg DAILYWSUP PO Last administered on 17:36; Start 08/03/16 at 17:00 Active Scripts Active Reported Polyethylene Glycol 3350 255 Gm Powder 17 Gm PO DAILY PRN Hydrocodone-Apap 5-325 (Hydrocodone Bit/Acetaminophen) 1 Each Tablet 1 Tab PO PRN Q4HRS PRN Nitrofurantoin [place]-Mcr 100 Mg (Nitrofurantoin Monohyd/M-Cryst) 100 Mg Capsule 1 Cap PO BID Tramadol Hcl (Tramadol HCl) 50 Mg Tablet 50 Mg PO TID PRN PRN Acetaminophen 500 Mg Tablet 2 Tab PO Q4HRS Lorazepam 2 Mg/1 Ml Disp.syrin 0.5 Mg TOP Q4HRS PRN Loperamide (Loperamide Hcl) 2 Mg Capsule 2 Mg PO TID PRN Megace Es (Megestrol Acetate) 625 Mg/5 Ml Oral.susp 625 Mg PO DAILY06 Lisinopril 10 Mg Tablet 10 Mg PO DAILY FENTANYL 25mcg/hr (Fentanyl) 1 Each Patch.td72 1 Patch TP Q3DAYS Famotidine 20 Mg Tablet 20 Mg PO HS Aspirin Ec (Aspirin) 81 Mg Tablet.dr 1 Tab PO DAILY Melatonin 5 Mg Tablet 5 Mg PO HS Lorazepam 2 Mg/1 Ml Disp.syrin 0.5 Mg TOP DAILY06 Escitalopram Oxalate 10 Mg Tablet 1 Tab PO DAILY Buspirone Hcl 10 Mg Tablet 1 Tab PO TID Diagnosis: Problems: (1) UTI (urinary tract infection) (2) Chronic renal insufficiency (3) Dementia with behavioral disturbance (4) Anxiety disorder (5) Dementia in Alzheimer's disease with delusions (6) Dementia in Alzheimer's disease with depression (7) Dementia, vascular, with delusions (8) Dementia, vascular, with depression (9) Impulse control disorder DEISY MCNEIL MD Aug 07, 2016 21:13
--- NOTE | 2016-08-08 00:13 | NUR ---
Behavior Intervention Response and Plan: BIRP Note: Behavior: Assumed Care of patient, patient located in Day Room at shift change. Patient exhibited the following behavior Calm, Compliant, Anxious. Brief assessment on rounds of vital signs, medication needs, lab studies, and pain. Treatment plan problems Dementia with BD and Fall Risk. Intervention: Patient assessed and the following interventions initiated safety checks 15 Minute Checks Personal Alarm in place , Cognitive Assessment , Medications. Response: After interactions and interventions patient responded in the following manner, Calm , Compliant ,Cooperative. Continue to assess behaviors and condition will continue to monitor throughout the shift as needed. Plan: Continue to monitor Master Treatment Plan for patient's progress toward short term goals of Decreased Agitation, Decreased Anxiety, senior care goals to return to previous living setting vs placement. Continue to assess patient for changes in above assessment. Monitor for medication needs, pain, and safety concerns. Hourly rounding performed to ensure safe environment.
[2016-08-08 05:55] VITALS: BP 162/69
[2016-08-08] MEDS: LORazepam TOPICAL 0.5 MG/ML GEL TP SCH (06:00)
[2016-08-08] MEDS: QUEtiapine 25 MG TABLET. PO SCH ×2 (08:47→14:02)
[2016-08-08] MEDS: busPIRone 10 MG TABLET. PO SCH ×3 (08:47→19:18)
[2016-08-08] MEDS: ASPIRIN ENTERIC COATED 81 MG TABLET.DR. PO SCH (08:47)
[2016-08-08] MEDS: DULoxetine HCL 30 MG CAPSULE.DR PO SCH (08:48)
[2016-08-08] MEDS: CHOLECALCIFEROL (VITAMIN D3) 1,000 UNIT TABLET PO SCH (08:49)
[2016-08-08] MEDS: CYANOCOBALAMIN (VITAMIN B-12) 250 MCG TABLET PO SCH (08:50)
[2016-08-08 15:43] VITALS: BP 126/50
--- NOTE | 2016-08-08 15:51 | NUR ---
Behavior Intervention Response and Plan: BIRP Note: Behavior: Assumed Care of patient, patient located in Day Room at shift change. Patient exhibited the following behavior Restless, Compliant, Resistive. Brief assessment on rounds of vital signs, medication needs, lab studies, and pain. Treatment plan problems . Intervention: Patient assessed and the following interventions initiated safety checks 15 Minute Checks Cognitive Assessment , Head to toe Assessment , Medications. Response: After interactions and interventions patient responded in the following manner, Calm , Compliant ,Cooperative. Continue to assess behaviors and condition will continue to monitor throughout the shift as needed. Plan: Continue to monitor Master Treatment Plan for patient's progress toward short term goals of Decreased Anxiety, Improved Mood, nursing home goals to return to previous living setting vs placement. Continue to assess patient for changes in above assessment. Monitor for medication needs, pain, and safety concerns. Hourly rounding performed to ensure safe environment.
[2016-08-08] MEDS: ACETAMINOPHEN 500 MG TABLET PO PRN (19:18)
[2016-08-08] MEDS: FAMOTIDINE 20 MG TABLET PO SCH (19:18)
[2016-08-08] MEDS: traMADol 50 MG TABLET PO PRN (22:10)
[2016-08-08] MEDS: LORazepam 0.5 MG TABLET PO PRN (22:10)
--- NOTE | 2016-08-08 22:10 | NUR ---
Behavior Intervention Response and Plan: BIRP Note: Behavior: Assumed Care of patient, patient located in Day Room at shift change. Patient exhibited the following behavior Restless, Irritable, Anxious, when asked states she is in generalized pain. Brief assessment on rounds of vital signs, medication needs, lab studies, and pain. Treatment plan problems: Dementia with BD and Fall Risk . Intervention: Patient assessed and the following interventions initiated safety checks 15 Minute Checks Cognitive Assessment , Head to toe Assessment , Medications, oral nutrition and oral Hydration. Response: After interactions and interventions patient responded in the following manner, Compliant , Cooperative ,Calm, restful. Continue to assess behaviors and condition will continue to monitor throughout the shift as needed. 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 Continue to assess patient for changes in above assessment. Monitor for medication needs, pain, and safety concerns. Hourly rounding performed to ensure safe environment.
--- NOTE | 2016-08-09 01:38 | PDOC ---
Exam Luis Eduardo Demential Exam: Luis Eduardo Note: Please also refer to the separate dictated note~for this date of service dictated separately.~Patient seen individually. Discussed the patient with Nursing staff reviewed the chart.~Reviewed interim history and current functioning. Reviewed vital signs,~Labs/ Radiology~and current medications noted below. Continue current treatment with the changes noted in the dictated addendum note Assessment: Vital Signs: Vital Signs Date Time Temp Pulse Resp B/P Pulse Ox O2 Delivery O2 Flow Rate FiO2 08/08/16 15:43 97.8 68 20 126/50 96 Room Air I&O Intake and Output 08/08/16 07:00 Intake Total 580 ml Balance 580 ml Intake Oral 580 ml # Voids 2 # Bowel Movements 1 Current Medications: Meds: Current Medications Buspirone HCl (Buspar) 10 mg TID PO Last administered on 08/08/16 19:18; Start 07/28/16 at 21:00 Escitalopram Oxalate (Lexapro) 10 mg DAILY PO Last administered on 07/29/16 08 :55; Start 07/29/16 at 09:00; Stop 07/29/16 at 18:02; Status DC Non-Formulary Medication 0.5 mg DAILY06 TOP ; Start 07/29/16 at 06:00; Stop at 08:00; Status DC Melatonin 6 mg PRN QHS PRN PO INSOMNIA Last administered on 07/29/16 19:34; Start 07/28/16 at 19:15 Lorazepam (Ativan) 0.5 mg PRN Q4HRS PRN TP ANXIETY / AGITATION Last administered on 07/29/16 10:39; Start 07/29/16 at 08:15; Stop 07/29/16 at 15:17 ; Status DC Multi-Ingredient Ointment (Analgesic [place]) 1 madhu PRN QID PRN TP MUSCLE PAIN; Start 07/28/16 at 19:00 Al Hydroxide/Mg Hydroxide (Mylanta Plus Xs) 15 ml PRN AFTMEALHC PRN PO DYSPEPSIA; Start 07/28/16 at 19:00 Magnesium Hydroxide (Milk Of Magnesia) 2,400 mg PRN QHS PRN PO CONSTIPATION; Start 07/28/16 at 19:00 Acetaminophen (Tylenol) 1,000 mg PRN Q4HRS PRN PO PAIN/ TEMP; Start 07/29/16 at 00:00; Stop 07/29/16 at 10:11; Status DC Aspirin (Aspirin Enteric Coated) 81 mg DAILY PO Last administered on 08/08/16 08:47; Start 07/29/16 at 09:00 Famotidine (Pepcid) 20 mg HS PO Last administered on 08/08/16 19:18; Start at 21:00 Fentanyl (Duragesic 25mcg/ Hr) 1 patch Q3DAYS TD Last administered on 09:30; Start 07/31/16 at 09:00 Loperamide HCl (Imodium) 2 mg PRN TID PRN PO DIARRHEA; Start 07/28/16 at 19:00 Polyethylene Glycol (miraLAX) 17 gm PRN DAILY PRN PO CONSTIPATION; Start at 09:00 Tramadol HCl (Ultram) 50 mg TID PRN PRN PO PAIN Last administered on 08/01/16 09:34; Start 07/28/16 at 19:00 Megestrol Acetate (Megace) 625 mg DAILY06 PO Last administered on 07/30/16 05: 10; Start 07/29/16 at 06:00; Stop 07/30/16 at 14:13; Status DC Lorazepam (Ativan) 0.5 mg DAILY06 TP Last administered on 08/08/16 06:00; Start 07/30/16 at 06:00 Acetaminophen (Tylenol) 1,000 mg Q8HRS PRN PO PAIN/ TEMP Last administered on 19:18; Start 07/29/16 at 14:00 Lorazepam (Ativan) 0.5 mg PRN Q4HRS PRN PO ANXIETY / AGITATION Last administered on 08/07/16 17:14; Start 07/29/16 at 15:00 Duloxetine HCl (Cymbalta) 30 mg DAILY PO Last administered on 08/08/16 08:48; Start 07/30/16 at 09:00 Quetiapine Fumarate 12.5 mg 12.5 mg BID92 PO Last administered on 07/30/16 12: 03; Start 07/30/16 at 09:00; Stop 07/30/16 at 18:18; Status DC Multivitamins/ Minerals/Folic Acid/Thiamine HCl/ Dextrose/Sodium Chloride ( Infuvite Adult/ Iv D5% - 1/2 NS) 1,011.2 ml @ 1,000 mls/ hr 1X ONCE IV Last administered on 07/30/16 14:34; Start 07/30/16 at 15:00; Stop 07/30/16 at 16:00 ; Status DC Lorazepam 0.5 mg 0.5 mg PRN Q4HRS PRN TP ANXIETY / AGITATION Last administered on 08/02/16 21:16; Start 07/30/16 at 14:30 Sodium Chloride 1,000 ml @ 150 mls/hr 1X ONCE IV Last administered on 17:00; Start 07/30/16 at 17:00; Stop 07/30/16 at 23:39; Status DC Sodium Chloride 1,000 ml @ 125 mls/hr Q8H IV Last administered on 07/31/16 08 :24; Start 07/31/16 at 00:00; Stop 07/31/16 at 14:13; Status DC Ceftriaxone Sodium/Sodium Chloride (Rocephin/Iv Sodium Chloride 0.9% 50ml) 50 ml @ 100 mls/hr Q24H IV Last administered on 08/01/16 23:23; Start 07/30/16 at 22:00; Stop 08/02/16 at 07:46; Status DC Fosfomycin Tromethamine (Monurol) 3 gm 1X ONCE PO Last administered on 12:03; Start 08/02/16 at 08:00; Stop 08/02/16 at 08:01; Status DC Quetiapine Fumarate (SEROquel) 12.5 mg BID92 PO Last administered on 08/08/16 14:02; Start 08/03/16 at 09:00 Vitamin D (Vitamin D3) 1,000 unit DAILYWSUP PO Last administered on 08/08/16 08:49; Start 08/03/16 at 17:00 Cyanocobalamin (Vitamin B-12) 250 mcg DAILYWSUP PO Last administered on 08:50; Start 08/03/16 at 17:00 Active Scripts Active Reported Polyethylene Glycol 3350 255 Gm Powder 17 Gm PO DAILY PRN Hydrocodone-Apap 5-325 (Hydrocodone Bit/Acetaminophen) 1 Each Tablet 1 Tab PO PRN Q4HRS PRN Nitrofurantoin Moca-Mcr 100 Mg (Nitrofurantoin Monohyd/M-Cryst) 100 Mg Capsule 1 Cap PO BID Tramadol Hcl (Tramadol HCl) 50 Mg Tablet 50 Mg PO TID PRN PRN Acetaminophen 500 Mg Tablet 2 Tab PO Q4HRS Lorazepam 2 Mg/1 Ml Disp.syrin 0.5 Mg TOP Q4HRS PRN Loperamide (Loperamide Hcl) 2 Mg Capsule 2 Mg PO TID PRN Megace Es (Megestrol Acetate) 625 Mg/5 Ml Oral.susp 625 Mg PO DAILY06 Lisinopril 10 Mg Tablet 10 Mg PO DAILY FENTANYL 25mcg/hr (Fentanyl) 1 Each Patch.td72 1 Patch TP Q3DAYS Famotidine 20 Mg Tablet 20 Mg PO HS Aspirin Ec (Aspirin) 81 Mg Tablet.dr 1 Tab PO DAILY Melatonin 5 Mg Tablet 5 Mg PO HS Lorazepam 2 Mg/1 Ml Disp.syrin 0.5 Mg TOP DAILY06 Escitalopram Oxalate 10 Mg Tablet 1 Tab PO DAILY Buspirone Hcl 10 Mg Tablet 1 Tab PO TID Diagnosis: Problems: (1) UTI (urinary tract infection) (2) Chronic renal insufficiency (3) Dementia with behavioral disturbance (4) Anxiety disorder (5) 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
[2016-08-09] MEDS: LORazepam TOPICAL 0.5 MG/ML GEL TP SCH (04:47)
[2016-08-09 06:04] VITALS: BP 132/64
--- NOTE | 2016-08-09 06:17 | NUR ---
Nursing Note: Patient slept well. Patient alert for am Vital signs and am Ativan TP. Patient anxious, but calmed with simple explanation of care being provided. Patient tolerated interventions and went back to sleep thereafter. Nursing to follow.
[2016-08-09] MEDS: QUEtiapine 25 MG TABLET. PO SCH ×2 (09:00→14:36)
[2016-08-09] MEDS: busPIRone 10 MG TABLET. PO SCH ×3 (09:00→19:52)
[2016-08-09] MEDS: ASPIRIN ENTERIC COATED 81 MG TABLET.DR. PO SCH (09:00)
[2016-08-09] MEDS: DULoxetine HCL 30 MG CAPSULE.DR PO SCH (09:00)
[2016-08-09] MEDS: fentaNYL 25MCG/HR 1 PATCH PATCH TD SCH (10:07)
[2016-08-09] MEDS: LORazepam 0.5 MG TABLET PO PRN ×2 (10:24→19:56)
--- NOTE | 2016-08-09 10:25 | NUR ---
Pt yelling out with all cares this morning. Pt spit out medication. Nurse encouraged pt and reminded pt importance of medication however, pt continued to call staff names such as "you dumb bunny!" PRN ativan given.
--- NOTE | 2016-08-09 11:06 | PN ---
DATE: 08/07/2016 This is a late entry 08/07/2016, covers elements not covered in my initial note. SUBJECTIVE: The patient was staffed at treatment team meeting morning of 08/07/2016 seen individually evening of 08/07/2016. Reviewed the patient's history, diagnoses, progress. She has been more confused, anxious again, repeatedly stating "oh good help me, oh good help me" when she is wondering to go to bed. Being fed by nursing staff. We will check UA. REVIEW OF SYSTEMS: Ambulation impaired, in a wheelchair. No CV, , pulmonary, eye, ENT system symptoms on review. Reliability poor. MENTAL STATUS EXAM: Oriented to herself. Insight, judgment, recent and remote memory, attention, concentration, fund of knowledge poor, consistent with her diagnoses mentioned in my initial note. PLAN: Continue Seroquel 12.5 b.i.d., Ativan p.r.n. and Ativan gel daily at 0600 plus p.r.n. Cymbalta 30 mg a day, BuSpar 10 t.i.d., adjust further as clinically indicated. MAN Dominic MCNEIL MD DR: MARIVEL/yazmin JOB#: [id number] / [id number]
--- NOTE | 2016-08-09 12:07 | NUR ---
Behavior Intervention Response and Plan: BIRP Note: Behavior: Assumed Care of patient, patient located in Day Room at shift change. Patient exhibited the following behavior anxious, yelling out, combative, name calling, non compliant with medication. PRN ativan was given. Brief assessment on rounds of vital signs, medication needs, lab studies, and pain. Treatment plan problems: Dementia with BD and Fall Risk . Intervention: Patient assessed and the following interventions initiated safety checks 15 Minute Checks Cognitive Assessment , Head to toe Assessment , Medications, oral nutrition and oral Hydration. Response: After interactions and interventions patient responded in the following manner, Compliant , Cooperative ,Calm. Continue to assess behaviors and condition will continue to monitor throughout the shift as needed. 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 Continue to assess patient for changes in above assessment. Monitor for medication needs, pain, and safety concerns. Hourly rounding performed to ensure safe environment.
[2016-08-09 16:34] VITALS: BP 133/63
[2016-08-09] MEDS: CYANOCOBALAMIN (VITAMIN B-12) 250 MCG TABLET PO SCH (17:00)
[2016-08-09] MEDS: CHOLECALCIFEROL (VITAMIN D3) 1,000 UNIT TABLET PO SCH (17:00)
[2016-08-09] MEDS: FAMOTIDINE 20 MG TABLET PO SCH (19:52)
[2016-08-09] MEDS: ACETAMINOPHEN 500 MG TABLET PO PRN (19:53)
--- NOTE | 2016-08-09 22:31 | PDOC ---
Exam Luis Eduardo Demential Exam: Luis Eduardo Note: Please also refer to the separate dictated note~for this date of service dictated separately.~Patient seen individually. Discussed the patient with Nursing staff reviewed the chart.~Reviewed interim history and current functioning. Reviewed vital signs,~Labs/ Radiology~and current medications noted below. Continue current treatment with the changes noted in the dictated addendum note Assessment: Vital Signs: Vital Signs Date Time Temp Pulse Resp B/P Pulse Ox O2 Delivery O2 Flow Rate FiO2 08/09/16 16:34 99.2 80 20 133/63 99 08/08/16 23:10 Room Air I&O Intake and Output 08/09/16 07:00 Intake Total 1020 ml Balance 1020 ml Intake Oral 1020 ml # Bowel Movements 2 Current Medications: Meds: Current Medications Buspirone HCl (Buspar) 10 mg TID PO Last administered on 08/09/16 19:52; Start 07/28/16 at 21:00 Escitalopram Oxalate (Lexapro) 10 mg DAILY PO Last administered on 07/29/16 08 :55; Start 07/29/16 at 09:00; Stop 07/29/16 at 18:02; Status DC Non-Formulary Medication 0.5 mg DAILY06 TOP ; Start 07/29/16 at 06:00; Stop at 08:00; Status DC Melatonin 6 mg PRN QHS PRN PO INSOMNIA Last administered on 07/29/16 19:34; Start 07/28/16 at 19:15 Lorazepam (Ativan) 0.5 mg PRN Q4HRS PRN TP ANXIETY / AGITATION Last administered on 07/29/16 10:39; Start 07/29/16 at 08:15; Stop 07/29/16 at 15:17 ; Status DC Multi-Ingredient Ointment (Analgesic [place]) 1 madhu PRN QID PRN TP MUSCLE PAIN; Start 07/28/16 at 19:00 Al Hydroxide/Mg Hydroxide (Mylanta Plus Xs) 15 ml PRN AFTMEALHC PRN PO DYSPEPSIA; Start 07/28/16 at 19:00 Magnesium Hydroxide (Milk Of Magnesia) 2,400 mg PRN QHS PRN PO CONSTIPATION; Start 07/28/16 at 19:00 Acetaminophen (Tylenol) 1,000 mg PRN Q4HRS PRN PO PAIN/ TEMP; Start 07/29/16 at 00:00; Stop 07/29/16 at 10:11; Status DC Aspirin (Aspirin Enteric Coated) 81 mg DAILY PO Last administered on 08/08/16 08:47; Start 07/29/16 at 09:00 Famotidine (Pepcid) 20 mg HS PO Last administered on 08/09/16 19:52; Start at 21:00 Fentanyl (Duragesic 25mcg/ Hr) 1 patch Q3DAYS TD Last administered on 10:07; Start 07/31/16 at 09:00 Loperamide HCl (Imodium) 2 mg PRN TID PRN PO DIARRHEA; Start 07/28/16 at 19:00 Polyethylene Glycol (miraLAX) 17 gm PRN DAILY PRN PO CONSTIPATION; Start at 09:00 Tramadol HCl (Ultram) 50 mg TID PRN PRN PO PAIN Last administered on 08/08/16 22:10; Start 07/28/16 at 19:00 Megestrol Acetate (Megace) 625 mg DAILY06 PO Last administered on 07/30/16 05: 10; Start 07/29/16 at 06:00; Stop 07/30/16 at 14:13; Status DC Lorazepam (Ativan) 0.5 mg DAILY06 TP Last administered on 08/09/16 04:47; Start 07/30/16 at 06:00 Acetaminophen (Tylenol) 1,000 mg Q8HRS PRN PO PAIN/ TEMP Last administered on 19:53; Start 07/29/16 at 14:00 Lorazepam (Ativan) 0.5 mg PRN Q4HRS PRN PO ANXIETY / AGITATION Last administered on 08/09/16 19:56; Start 07/29/16 at 15:00 Duloxetine HCl (Cymbalta) 30 mg DAILY PO Last administered on 08/08/16 08:48; Start 07/30/16 at 09:00 Quetiapine Fumarate 12.5 mg 12.5 mg BID92 PO Last administered on 07/30/16 12: 03; Start 07/30/16 at 09:00; Stop 07/30/16 at 18:18; Status DC Multivitamins/ Minerals/Folic Acid/Thiamine HCl/ Dextrose/Sodium Chloride ( Infuvite Adult/ Iv D5% - 1/2 NS) 1,011.2 ml @ 1,000 mls/ hr 1X ONCE IV Last administered on 07/30/16 14:34; Start 07/30/16 at 15:00; Stop 07/30/16 at 16:00 ; Status DC Lorazepam 0.5 mg 0.5 mg PRN Q4HRS PRN TP ANXIETY / AGITATION Last administered on 08/02/16 21:16; Start 07/30/16 at 14:30 Sodium Chloride 1,000 ml @ 150 mls/hr 1X ONCE IV Last administered on 17:00; Start 07/30/16 at 17:00; Stop 07/30/16 at 23:39; Status DC Sodium Chloride 1,000 ml @ 125 mls/hr Q8H IV Last administered on 07/31/16 08 :24; Start 07/31/16 at 00:00; Stop 07/31/16 at 14:13; Status DC Ceftriaxone Sodium/Sodium Chloride (Rocephin/Iv Sodium Chloride 0.9% 50ml) 50 ml @ 100 mls/hr Q24H IV Last administered on 08/01/16 23:23; Start 07/30/16 at 22:00; Stop 08/02/16 at 07:46; Status DC Fosfomycin Tromethamine (Monurol) 3 gm 1X ONCE PO Last administered on 12:03; Start 08/02/16 at 08:00; Stop 08/02/16 at 08:01; Status DC Quetiapine Fumarate (SEROquel) 12.5 mg BID92 PO Last administered on 08/09/16 14:36; Start 08/03/16 at 09:00 Vitamin D (Vitamin D3) 1,000 unit DAILYWSUP PO Last administered on 08/08/16 08:49; Start 08/03/16 at 17:00 Cyanocobalamin (Vitamin B-12) 250 mcg DAILYWSUP PO Last administered on 08:50; Start 08/03/16 at 17:00 Active Scripts Active Reported Polyethylene Glycol 3350 255 Gm Powder 17 Gm PO DAILY PRN Hydrocodone-Apap 5-325 (Hydrocodone Bit/Acetaminophen) 1 Each Tablet 1 Tab PO PRN Q4HRS PRN Nitrofurantoin [place]-Mcr 100 Mg (Nitrofurantoin Monohyd/M-Cryst) 100 Mg Capsule 1 Cap PO BID Tramadol Hcl (Tramadol HCl) 50 Mg Tablet 50 Mg PO TID PRN PRN Acetaminophen 500 Mg Tablet 2 Tab PO Q4HRS Lorazepam 2 Mg/1 Ml Disp.syrin 0.5 Mg TOP Q4HRS PRN Loperamide (Loperamide Hcl) 2 Mg Capsule 2 Mg PO TID PRN Megace Es (Megestrol Acetate) 625 Mg/5 Ml Oral.susp 625 Mg PO DAILY06 Lisinopril 10 Mg Tablet 10 Mg PO DAILY FENTANYL 25mcg/hr (Fentanyl) 1 Each Patch.td72 1 Patch TP Q3DAYS Famotidine 20 Mg Tablet 20 Mg PO HS Aspirin Ec (Aspirin) 81 Mg Tablet.dr 1 Tab PO DAILY Melatonin 5 Mg Tablet 5 Mg PO HS Lorazepam 2 Mg/1 Ml Disp.syrin 0.5 Mg TOP DAILY06 Escitalopram Oxalate 10 Mg Tablet 1 Tab PO DAILY Buspirone Hcl 10 Mg Tablet 1 Tab PO TID Diagnosis: Problems: (1) UTI (urinary tract infection) (2) Chronic renal insufficiency (3) Dementia with behavioral disturbance (4) Anxiety disorder (5) Dementia in Alzheimer's disease with delusions (6) Dementia in Alzheimer's disease with depression (7) Dementia, vascular, with delusions (8) Dementia, vascular, with depression (9) Impulse control disorder DEISY MCNEIL MD Aug 09, 2016 22:31
--- NOTE | 2016-08-09 22:58 | NUR ---
Behavior Intervention Response and Plan: BIRP Note: Behavior: Assumed Care of patient, patient located in Day Room at shift change. Patient exhibited the following behavior Restless, Disorganized, Anxious. Brief assessment on rounds of vital signs, medication needs, lab studies, and pain. Treatment plan problems:1-2 Intervention: Patient assessed and the following interventions initiated safety checks 15 Minute Checks Cognitive Assessment , Head to toe Assessment , Medications. Response: After interactions and interventions patient responded in the following manner, Disorganized , Non Compliant ,Non Compliant with Meds. Continue to assess behaviors and condition will continue to monitor throughout the shift as needed. 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 Continue to assess patient for changes in above assessment. Monitor for medication needs, pain, and safety concerns. Hourly rounding performed to ensure safe environment.
[2016-08-10] MEDS: LORazepam TOPICAL 0.5 MG/ML GEL TP SCH (05:12)
[2016-08-10] MEDS: LORazepam 0.5 MG TABLET PO PRN (05:12)
--- NOTE | 2016-08-10 05:39 | NUR ---
Nsg Note: This AM pt had a large amt of very loose stool. Her temp was elevated @ 99.6- BP:169/74 P:105 R:26 & spO2 was 96% on RA. She also exhibited a wet cough but would not cooperate w/ auscultation. She sounds as if it may sinus drainage . Will cont. to monitor & pass on to dayshift RN.
[2016-08-10 06:11] VITALS: BP 169/74
[2016-08-10] MEDS: ASPIRIN ENTERIC COATED 81 MG TABLET.DR. PO SCH (08:19)
[2016-08-10] MEDS: DULoxetine HCL 30 MG CAPSULE.DR PO SCH (08:19)
[2016-08-10] MEDS: busPIRone 10 MG TABLET. PO SCH (08:19)
[2016-08-10] MEDS: QUEtiapine 25 MG TABLET. PO SCH (08:19)
[2016-08-10 08:30] VITALS: BP 147/70
--- NOTE | 2016-08-10 08:31 | NUR ---
During medication administration nurse reassessed pt VS. VS: 147/70, 119, 101.1 ax, 97% on room air. Unable to assess pt RR and lung sounds d/t pt becoming anxious and combative. Dr. Davonte rodriguez. New orders for STAT cbc, cmp, lactic acid, blood culture, UA, cdiff, insert and maintain IV, Transfer to ICU for sepsis.
--- NOTE | 2016-08-10 08:50 | NUR ---
Behavior Intervention Response and Plan: BIRP Note: Behavior: Assumed Care of patient, patient located in Day Room at shift change. Patient exhibited the following behavior anxious, yelling out, resistive with assessment, yelling out with cares. PRN ativan was given. Brief assessment on rounds of vital signs, medication needs, lab studies, and pain. Treatment plan problems: Dementia with BD and Fall Risk . Intervention: Patient assessed and the following interventions initiated safety checks 15 Minute Checks Cognitive Assessment , Head to toe Assessment , Medications, oral nutrition and oral Hydration. Response: After interactions and interventions patient responded in the following manner, anxious, yelling out with cares. Continue to assess behaviors and condition will continue to monitor throughout the shift as needed. Plan: Continue to monitor Master Treatment Plan for patient's progress toward short term goals of Decreased Agitation, Decreased Anxiety, Medication Compliance, Improved Mood, detention goals to return to previous living setting vs placement. Continue to assess patient for changes in above assessment. Monitor for medication needs, pain, and safety concerns. Hourly rounding performed to ensure safe environment.
[2016-08-10 08:58] LABS: BASO % 0 % (0-3); EOS # 0.3 x10^3/uL (0.0-0.7); EOS % 3 % (0-3); HEMATOCRIT 30.4 % (36.0-47.0); LYMPH # 1.4 x10^3/uL (1.0-4.8); LYMPH % 18 % (24-48); MEAN CORPUSCULAR HEMOGLOBIN 32 pg (25-35); MEAN CORPUSCULAR HGB CONC 33 g/dL (31-37); MEAN CORPUSCULAR VOLUME 96 fL (79-100); MONO # 0.3 x10^3/uL (0.0-1.1); MONO % 4 % (0-9); NEUT # 5.8 x10^3uL (1.8-7.7); NEUT % 74 % (31-73); PLATELET COUNT 194 x10^3/uL (140-400); RED BLOOD COUNT 3.17 x10^6/uL (3.50-5.40); RED CELL DISTRIBUTION WIDTH 14.2 % (11.5-14.5); WHITE BLOOD COUNT 7.8 x10^3/uL (4.0-11.0)
[2016-08-10 09:19] LABS: ALBUMIN 2.8 g/dL (3.4-5.0); ALBUMIN/GLOBULIN RATIO 0.8 (1.0-1.7); CALCIUM 8.9 mg/dL (8.5-10.1); CREATININE 2.1 mg/dL (0.6-1.0); GFR 22.5; POTASSIUM 4.7 mmol/L (3.5-5.1); TOTAL BILIRUBIN 0.4 mg/dL (0.2-1.0); TOTAL PROTEIN 6.3 g/dL (6.4-8.2)
[2016-08-10] MEDS ORDERED: CHOL10003 PO (09:24)
[2016-08-10] MEDS ORDERED: CYAN250T PO (09:25)
--- NOTE | 2016-08-10 09:27 | RAD ---
Audible AP view CXR: Clinical indications: Cough. Tachycardia. Fever.. Comparison: August 05, 2016. Findings: No acute lung infiltrate or pleural effusion or pulmonary edema or lung mass or pneumothorax is seen. The heart size, pulmonary vasculature, mediastinum and both michela are unremarkable. Impression: No acute radiographic abnormality is seen.
[2016-08-10] MEDS ORDERED: LORA0.5T96 PO (09:28)
[2016-08-10] MEDS ORDERED: DULO30CA2 PO (09:29)
[2016-08-10] MEDS ORDERED: QUET25TA5 PO (09:30)
[2016-08-10] MEDS ORDERED: CYAN500T17 PO (09:32)
--- NOTE | 2016-08-10 09:45 | NUR ---
Pt transferred to ICU bed 3. Report given to Family Asiya and Dr. Moreno notified.
--- NOTE | 2016-08-10 09:50 | NUR ---
Discharge Note [facility] Patient is not currently a tobacco user. Follow up Appointment made: Date and Time 0945 08/10/2016 instructions and Social Work Discharge planning sheet sent to next level of care. [facility] contact Number for 24 hour support [phone] Discharge Packet Sent, and discusssed with patient and caregiver that includes Copies from the record of current medications with indications and frequencies, history and physical, Psychiatric Eval with reason and justification for admission, Lab values, Radiology results , follow up instructions for continuation of care, and Social Work discharge planning form: yes Discharge Packet Faxed to Provider/Next Level of Care: yes ICU Discharge Packet Faxed with discharge Order and Discharge diagnosis sent to: Discharge Packet Discussed, and report Given to: Discharge instruction sheet was included in the packet and sent with the patient upon discharge. Any Pending lab results can be obtained by calling [phone] Discharge Summary will be sent to next care provider when available. This includes the reason for admission, DC diagnosis, and next level of care recommendations.
--- NOTE | 2016-08-10 21:51 | PN ---
DATE: 08/06/2016 SUBJECTIVE: This is a late entry 08/06/2016, covers elements not covered in my initial note. The patient remains confused, withdrawn, and cooperative with the shower; takes her meds crushed in pudding; somewhat tremulous. We will consult Dr. Neal, Neurology, and see if she can be provided Parkinson's spoon to help feed herself. For now, staff feeding her. REVIEW OF SYSTEMS: Ambulation impaired, in her wheelchair. No CV, , pulmonary, eye, or ENT system symptoms on review. MENTAL STATUS EXAM: Oriented to herself. Insight, judgment, recent and remote memory, attention, concentration, fund of knowledge poor, consistent with her diagnosis mentioned in my initial note. PLAN: Continue Cymbalta, BuSpar, Ativan gel, and Seroquel at current dosage. Adjust as indicated. MAN Dominic MCNEIL MD DR: MARIVEL/yazmin JOB#: [id number] / [id number]
--- NOTE | 2016-08-11 04:05 | PN ---
DATE: 08/09/2016 PSYCHIATRIC PROGRESS NOTE This is a late entry 08/09 covers the elements not covered in my initial note. SUBJECTIVE: Previous night, the patient was yelling with ____. Ativan gel has run out at the pharmacy, we will reorder it. OBJECTIVE: No CV, , pulmonary, eye system symptoms on review. Withdrawn in a Broda chair. Reliability poor. MENTAL STATUS EXAM: Oriented to herself. Insight, judgment, recent and remote memory, attention, concentration, fund of knowledge poor, consistent with her diagnosis mentioned in my initial note. PLAN: Continue current psychotropics. Adjust further as clinically indicated. Restart Ativan gel. DEISY MCNEIL MD DR: MARIVEL/yazmin JOB#: [id number] / [id number]
== END 2016-08-10 09:58 | disposition short-term general hospital (02) | DRG 56 ==
LOC: ER 15:01 → GEROPSY 16:28
PROVIDERS: ADMIT Psychiatry & Neurology Psychiatry; ATTEND Psychiatry & Neurology Psychiatry
DX: G30.9 Alzheimer's disease, unspecified (principal); E43 Unspecified severe protein-calorie malnutrition; F02.81 Dementia in other diseases classified elsewhere, unspecified severity, with behavioral disturbance; N39.0 Urinary tract infection, site not specified; F01.51 Vascular dementia, unspecified severity, with behavioral disturbance; F32.9 Major depressive disorder, single episode, unspecified; F41.9 Anxiety disorder, unspecified; F63.9 Impulse disorder, unspecified; I12.9 Hypertensive chronic kidney disease with stage 1 through stage 4 chronic kidney disease, or unspecified chronic kidney disease; F22 Delusional disorders; E86.0 Dehydration; K21.9 Gastro-esophageal reflux disease without esophagitis; N18.9 Chronic kidney disease, unspecified; Z87.440 Personal history of urinary (tract) infections; Z91.81 History of falling; Z68.20 Body mass index [BMI] 20.0-20.9, adult; Z88.0 Allergy status to penicillin; Z88.2 Allergy status to sulfonamides
CPT/HCPCS: 36415; 71010; 71020; 80047; 80048; 80053; 80061; 80076; 80164; 81001; 82306; 82607; 83036; 83540; 83550; 83605; 83735; 84436; 84443; 84480; 84484; 85027; 86592; 86593; 87040; 87086; 87186; 93005; J0696; 99285-25; J7030

== ENCOUNTER 2016-08-10 10:41 | Inpatient (IN) | payer MEDICARE, BC ==
[2016-08-10] VITALS (15 sets, daily range): BP systolic 71–165; BP diastolic 5–75
[~2016-08-10] VITALS: Ht 157.5 cm; Wt 49.7 kg
[~2016-08-10 10:41] MED LIST: ACET500T68 PO; ASPI-612 PO; BUSP10TA PO; CHOL10003 PO; CYAN250T PO; CYAN500T17 PO; DULO30CA2 PO; ESCI10TA PO; FAMO20TA5 PO; FENT1PAT15 TP; HYDR-2758 PO; LISI10TA2 PO; LOPE2CAP PO; LORA0.5T96 PO; LORA2DIS2 TOP; MEGE625O PO; MELA5TAB PO; NITR100C6 PO; POLY255P PO; QUET25TA5 PO; TRAM50TA PO
[2016-08-10] MEDS: MEROPENEM 500 MG in IV NORMAL SALINE 50ML 50 ML IV SCH (14:12)
[2016-08-10] MEDS: IV DEXTROSE 5 %-0.45 % NACL 1,000 ML IV SCH ×2 (14:12→20:49)
[2016-08-10] MEDS ORDERED: LORazepam 0.5 MG TABLET PO PRN ×2 (14:15→14:45)
[2016-08-10] MEDS ORDERED: traMADol 50 MG TABLET PO PRN (14:15)
[2016-08-10] MEDS ORDERED: LORazepam TOPICAL 0.5 MG/ML GEL TP PRN (14:45)
[2016-08-10] MEDS ORDERED: POLYETHYLENE GLYCOL 3350 255 GM POWDER. PO PRN (15:00)
[2016-08-10] MEDS ORDERED: METOPROLOL TARTRATE 5 MG/5 ML VIAL. IV ONE ×2 (16:01→16:20)
[2016-08-10] MEDS: QUEtiapine 25 MG TABLET. PO SCH (16:14)
[2016-08-10] MEDS: busPIRone 10 MG TABLET. PO SCH ×2 (16:14→21:33)
[2016-08-10] MEDS: CHOLECALCIFEROL (VITAMIN D3) 1,000 UNIT TABLET PO SCH (16:20)
--- NOTE | 2016-08-10 17:00 | NUR ---
The patient, DENYS VALLADARES, 81 y/o, F admitted by TORI ARAUZ MD, was given written information regarding hospital policies, unit procedures and contact persons. Patient's DPOA is her nephew Xiang Hawkins and he called twice today to check on her status. Patient came down from [facility] because of fever and rapid heart rate. Patient cries out any time she is touched and does not want to be bothered. Dr. Arauz ordered a rooney catheter to be placed and after multiple attempts one was inserted. Patient has an IV in her right antecubital and IV fluids are infusing. Antiobiotics ordered and medications renewed. Patient has had two loose bowel movements and her coccyx is reddened. Picture in chart and wound care consulted. Patient had a period of SVT and Dr. Arauz ordered a stat EKG. Dr. Arauz came to the bedside and ordered 5mg IV Metoprolol. Patient's blood pressure decreased after receiving some of her oral medications in pudding so a fluid bolus was infused. Patient resting comfortably at this time. Valuables were checked and recorded. Will continue to monitor.
[2016-08-10] MEDS: ACETAMINOPHEN 500 MG TABLET PO PRN (19:32)
[2016-08-10] MEDS ORDERED: IV NORMAL SALINE 500ML 500 ML ONE ×2 (20:46→23:52)
[2016-08-10] MEDS: FAMOTIDINE 20 MG TABLET PO SCH (21:33)
[2016-08-10] MEDS: MELATONIN 3 MG TABLET PO SCH (21:33)
[2016-08-10] MEDS ORDERED: IV NORMAL SALINE 1,000ML 1,000 ML ONE (23:59)
[2016-08-11] VITALS (21 sets, daily range): BP systolic 84–139; BP diastolic 42–80
[2016-08-11] MEDS ORDERED: IV NORMAL SALINE 1,000ML 1,000 ML IV ONE (00:30)
[2016-08-11] MEDS: IV NORMAL SALINE 1,000ML 1,000 ML IV SCH ×2 (01:00→07:37)
[2016-08-11] MEDS: MEROPENEM 500 MG in IV NORMAL SALINE 50ML 50 ML IV SCH (02:19)
[2016-08-11] MEDS: DULoxetine HCL 30 MG CAPSULE.DR PO SCH (07:37)
[2016-08-11] MEDS: ASPIRIN ENTERIC COATED 81 MG TABLET.DR. PO SCH (07:37)
[2016-08-11] MEDS: busPIRone 10 MG TABLET. PO SCH ×3 (07:37→20:55)
[2016-08-11] MEDS: QUEtiapine 25 MG TABLET. PO SCH ×2 (07:37→13:35)
[2016-08-11] MEDS: LORazepam TOPICAL 0.5 MG/ML GEL TP SCH (07:38)
[2016-08-11 08:37] LABS: BASO % 0 % (0-3); EOS # 0.1 x10^3/uL (0.0-0.7); EOS % 1 % (0-3); HEMATOCRIT 24.9 % (36.0-47.0); LYMPH # 1.4 x10^3/uL (1.0-4.8); LYMPH % 15 % (24-48); MEAN CORPUSCULAR HEMOGLOBIN 31 pg (25-35); MEAN CORPUSCULAR HGB CONC 32 g/dL (31-37); MEAN CORPUSCULAR VOLUME 96 fL (79-100); MONO # 0.3 x10^3/uL (0.0-1.1); MONO % 3 % (0-9); NEUT # 7.3 x10^3uL (1.8-7.7); NEUT % 80 % (31-73); PLATELET COUNT 157 x10^3/uL (140-400); RED BLOOD COUNT 2.59 x10^6/uL (3.50-5.40); WHITE BLOOD COUNT 9.1 x10^3/uL (4.0-11.0)
[2016-08-11 08:52] LABS: ALBUMIN 2.1 g/dL (3.4-5.0); ALBUMIN/GLOBULIN RATIO 0.6 (1.0-1.7); CALCIUM 8.2 mg/dL (8.5-10.1); CREATININE 2.3 mg/dL (0.6-1.0); GFR 20.3; POTASSIUM 3.2 mmol/L (3.5-5.1); TOTAL BILIRUBIN 0.4 mg/dL (0.2-1.0); TOTAL PROTEIN 5.5 g/dL (6.4-8.2)
[2016-08-11] MEDS ORDERED: POTASSIUM CHLORIDE 40 MEQ in IV NORMAL SALINE 1,000ML 1,000 ML IV SCH (10:28)
[2016-08-11] MEDS: POTASSIUM CL 40MEQ D5-0.45NACL 1,000 ML IV SCH ×2 (10:45→20:45)
[2016-08-11 11:31] LABS: BACTERIA,URINE 0 /HPF (0-FEW); BILIRUBIN,URINE NEG (NEG); CLARITY,URINE CLEAR; COLOR,URINE YELLOW; GLUCOSE,URINE NEG (NEG); NITRITE,URINE NEG (NEG); SQUAMOUS EPITHELIAL CELL,UR OCC /LPF; UROBILINOGEN,URINE 0.2 mg/dL (0.2 mg/dL); WBC,URINE OCC /HPF (0-4)
--- NOTE | 2016-08-11 11:37 | NUR ---
Nursing note - Dr. Gonzalez spoke with Xiang (DPOA) and decision made to move forward with hospice will continue to monitor
--- NOTE | 2016-08-11 12:52 | PDOC2 ---
CONSULT Date of Admission DATE: 08/11/16 TIME: 0900 Reason for Consult: hypotension, tachycardia History of Present Illness Patient is a 81-year-old female who was admitted from [facility] on 07/28/16 due to increased agitation, anxiety, irritability, mood lability, crying, screaming for hours, especially after cares. She was apparently combative, refusing medications, and failed outpatient treatment for psychiatric instability resulting in referral for admission. She was noted to have a UTI on evaluation by ED physician prior to admission. She was noted yesterday to be febrile and tachycardic as well as hypotensive so she was transferred to ICU and consult called. She received IV lopressor and IVF. This am her blood pressure is controlled and she is in sinus rhythm. She has continued to be resistant to care and combative with staff. She is currently sedated. She opens eyes and does not resist exam but is not verbal and does not follow commands. History is obtained from the chart. Past Medical History Weakness, falls, weight loss, anxiety, GERD, acute renal insufficiency, hypertension, dementia with behavior disturbance. UTI. Past Surgical History unknown Family History noncontributory secondary to age Social History No history of alcohol, drug abuse. She is a non smoker and resident of [facility]. Current Medications Current Medications Dextrose/Sodium Chloride 1,000 ml @ 75 mls/hr [id number] IV Last administered on 08/10/16 20:49; Start 08/10/16 at 14:00 Meropenem/Sodium Chloride (Merrem/Iv Sodium Chloride 0.9% 50ml) 50 ml @ 100 mls /hr Q12H IV Last administered on 08/11/16 02:19; Start 08/10/16 at 14:00; Stop 08/11/16 at 11:48; Status DC Acetaminophen (Tylenol) 1,000 mg PRN Q8HRS PRN PO PAIN / TEMP Last administered on 08/10/16 19:32; Start 08/10/16 at 14:15 Aspirin (Aspirin Enteric Coated) 81 mg DAILY PO Last administered on 08/11/16 07:37; Start 08/11/16 at 09:00 Buspirone HCl (Buspar) 10 mg TID PO Last administered on 08/11/16 07:37; Start 08/10/16 at 15:00 Vitamin D (Vitamin D3) 1,000 unit DAILYWSUP PO Last administered on 08/10/16 16:20; Start 08/10/16 at 17:00 Duloxetine HCl (Cymbalta) 30 mg DAILY PO Last administered on 08/11/16 07:37; Start 08/11/16 at 09:00 Famotidine (Pepcid) 20 mg HS PO Last administered on 08/10/16 21:33; Start at 21:00 Fentanyl (Duragesic 25mcg/ Hr) 1 patch Q3DAYS TD ; Start 08/12/16 at 09:00 Lorazepam (Ativan) 0.5 mg Q4HRS PRN PO ANXIETY / AGITATION; Start 08/10/16 at 14:15; Status UNV Polyethylene Glycol (miraLAX) 17 gm PRN DAILY PRN PO CONSTIPATION; Start at 15:00 Quetiapine Fumarate (SEROquel) 12.5 mg BID92 PO Last administered on 08/11/16 07:37; Start 08/10/16 at 15:00; Stop 08/11/16 at 11:47; Status DC Tramadol HCl (Ultram) 50 mg TID PRN PRN PO PAIN; Start 08/10/16 at 14:15 Lorazepam (Ativan) 0.5 mg DAILY06 TP Last administered on 08/11/16 07:38; Start 08/11/16 at 06:00 Lorazepam (Ativan) 0.5 mg PRN Q4HRS PRN TP ANXIETY / AGITATION; Start 08/10/16 at 14:45 Melatonin 6 mg QHS PO Last administered on 08/10/16 21:33; Start 08/10/16 at 21:00 Lorazepam (Ativan) 0.5 mg PRN Q4HRS PRN PO ANXIETY / AGITATION; Start 08/10/16 at 14:45 Metoprolol Tartrate (Lopressor) 5 mg 1X ONCE IV ; Start 08/10/16 at 16:20; Stop 08/10/16 at 16:21; Status DC Metoprolol Tartrate 5 mg 5 mg STK-MED ONCE IV Last administered on 08/10/16 16 :14; Start 08/10/16 at 16:01; Stop 08/10/16 at 16:02; Status DC Sodium Chloride 500 ml @ As Directed STK-MED ONCE .ROUTE Last administered on 08/10/16 20:49; Start 08/10/16 at 20:46; Stop 08/10/16 at 20:47; Status DC Sodium Chloride 500 ml @ As Directed STK-MED ONCE .ROUTE ; Start 08/10/16 at 23 :52; Stop 08/10/16 at 23:53; Status DC Sodium Chloride 1,000 ml @ As Directed STK-MED ONCE .ROUTE ; Start 08/10/16 at 23:59; Stop 08/11/16 at 00:00; Status DC Sodium Chloride 1,000 ml @ 250 mls/hr 1X ONCE IV Last administered on 00:40; Start 08/11/16 at 00:30; Stop 08/11/16 at 04:29; Status DC Sodium Chloride 1,000 ml @ 100 mls/hr Q10H IV Last administered on 08/11/16 07 :37; Start 08/11/16 at 01:00; Stop 08/11/16 at 10:31; Status DC Potassium Chloride 40 meq/ Sodium Chloride 1,020 ml @ 100 mls/hr [id number] IV ; Start 08/11/16 at 10:28; Stop 08/11/16 at 10:33; Status DC Potassium Chloride/Dextrose/ Sod Cl (KCl 40 Meq In D5%-1/2ns Iv Suzanne) 1,000 ml @ 100 mls/hr Q10H IV ; Start 08/11/16 at 10:45 Quetiapine Fumarate (SEROquel) 6.25 mg BID92 PO ; Start 08/11/16 at 14:00 Active Scripts Active Reported B-12 (Cyanocobalamin (Vitamin B-12)) 500 Mcg Tablet 250 Mcg PO DAILYWSUP Seroquel (Quetiapine Fumarate) 25 Mg Tablet 0.5 Tab PO BID92 Cymbalta (Duloxetine Hcl) 30 Mg Capsule.dr 1 Cap PO DAILY Ativan (Lorazepam) 0.5 Mg Tablet 0.5 Mg PO Q4HRS PRN Vitamin D3 (Cholecalciferol (Vitamin D3)) 1,000 Unit Tablet 1 Tab PO DAILYWSUP Polyethylene Glycol 3350 255 Gm Powder 17 Gm PO DAILY PRN Tramadol Hcl (Tramadol HCl) 50 Mg Tablet 50 Mg PO TID PRN PRN Acetaminophen 500 Mg Tablet 2 Tab PO PRN Q8HRS PRN Lorazepam 2 Mg/1 Ml Disp.syrin 0.5 Mg TOP Q4HRS PRN FENTANYL 25mcg/hr (Fentanyl) 1 Each Patch.td72 1 Patch TP Q3DAYS Famotidine 20 Mg Tablet 20 Mg PO HS Aspirin Ec (Aspirin) 81 Mg Tablet.dr 1 Tab PO DAILY Melatonin 5 Mg Tablet 6 Mg PO HS Lorazepam 2 Mg/1 Ml Disp.syrin 0.5 Mg TOP DAILY06 Buspirone Hcl 10 Mg Tablet 1 Tab PO TID Allergies: Coded Allergies: Penicillins (Verified Allergy, Intermediate, 07/29/16) Sulfa (Sulfonamide Antibiotics) (Verified Allergy, Intermediate, 07/29/16) Review of System unobtainable due to mental status General: Other (awakens easily and no acute distress. does not answer questions or follow commands. ) HEENT: Atraumatic Lungs: Other (clear anteriorly. ) Heart: Regular rate, Normal S1, Normal S2, Other (no gallops, clicks or rubs. no obvious murmurs) Abdomen: Normal bowel sounds, Soft Extremities: No edema, Normal pulses VITALS Vital Signs Date Time Temp Pulse Resp B/P Pulse Ox O2 Delivery O2 Flow Rate FiO2 08/11/16 11:00 67 20 127/49 99 Room Air 08/11/16 07:36 98.0 Labs Laboratory Tests Test 08/11/16 08:33 08/11/16 08:45 08/11/16 10:30 White Blood Count 9.1x10^3/uL (4.0-11.0) Red Blood Count 2.59x10^6/uL (3.50-5.40) Hemoglobin 8.0g/dL (12.0-15.5) Hematocrit 24.9% (36.0-47.0) Mean Corpuscular Volume 96fL (79-100) Mean Corpuscular Hemoglobin 31pg (25-35) Mean Corpuscular Hemoglobin Concent 32g/dL (31-37) Red Cell Distribution Width 15.0% (11.5-14.5) Platelet Count 157x10^3/uL (140-400) Neutrophils (%) (Auto) 80% (31-73) Lymphocytes (%) (Auto) 15% (24-48) Monocytes (%) (Auto) 3% (0-9) Eosinophils (%) (Auto) 1% (0-3) Basophils (%) (Auto) 0% (0-3) Neutrophils # (Auto) 7.3x10^3uL (1.8-7.7) Lymphocytes # (Auto) 1.4x10^3/uL (1.0-4.8) Monocytes # (Auto) 0.3x10^3/uL (0.0-1.1) Eosinophils # (Auto) 0.1x10^3/uL (0.0-0.7) Basophils # (Auto) 0.0x10^3/uL (0.0-0.2) Sodium Level 144mmol/L (136-145) Potassium Level 3.2mmol/L (3.5-5.1) Chloride Level 115mmol/L (98-107) Carbon Dioxide Level 15mmol/L (21-32) Anion Gap 14 (6-14) Blood Urea Nitrogen 49mg/dL (7-20) Creatinine 2.3mg/dL (0.6-1.0) Estimated GFR (Cockcroft-Gault) 20.3 BUN/Creatinine Ratio 21 (6-20) Glucose Level 99mg/dL (70-99) Calcium Level 8.2mg/dL (8.5-10.1) Total Bilirubin 0.4mg/dL (0.2-1.0) Aspartate Amino Transf (AST/SGOT) 20U/L (15-37) Alanine Aminotransferase (ALT/SGPT) 16U/L (14-59) Alkaline Phosphatase 48U/L (46-116) Total Protein 5.5g/dL (6.4-8.2) Albumin 2.1g/dL (3.4-5.0) Albumin/Globulin Ratio 0.6 (1.0-1.7) Magnesium Level 1.8mg/dL (1.8-2.4) Urine Collection Type Unknown Urine Color Yellow Urine Clarity Clear Urine pH 5.0 Urine Specific [place] 1.025 Urine Protein 100 mg/dl (NEG-TRACE) Urine Glucose (UA) Negmg/dL (NEG) Urine Ketones (Stick) Negmg/dL (NEG) Urine Blood Mod (NEG) Urine Nitrite Neg (NEG) Urine Bilirubin Neg (NEG) Urine Urobilinogen Dipstick 0.2mg/dL (0.2 mg/dL) Urine Leukocyte Esterase Neg (NEG) Urine RBC 3-5/HPF (0-2) Urine WBC Occ/HPF (0-4) Urine Squamous Epithelial Cells Occ/LPF Urine Bacteria 0/HPF (0-FEW) Images CXR - no acute abnormalities EKG - sinus tachycardia without acute ischemic changes Assessment/Plan 1. tachycardia - likely reactive due to sepsis and fever. Now sinus rhythm without ectopy, 2. hypotension - resolved after IVF 3. sepsis secondary to UTI - mgmt per PCP 4. renal insufficiency, likely acute on chronic - per PCP 4. dementia - per Psych I suspect tachycardia and hypotension both secondary to sepsis and fever and reactive in nature. Currently pressure and rate both controlled. No CV recommendations at this time due to mental status and infectious processes. Continue supportive care. Call with any questions or concerns. Problems: ELMER BUSTAMANTE [employer]GER August 11, 2016 12:51
--- NOTE | 2016-08-11 14:12 | PN ---
DATE: 08/08/2016 This is a late entry 08/08 covers elements not covered in my initial note. SUBJECTIVE: Overall, the patient did well the previous evening, screaming, with showers later in the morning. We will check a UA. Enjoyed music, anxious. OBJECTIVE: No CV, , pulmonary, eye system symptoms on review. Gait unsteady in a Broda chair. MENTAL STATUS EXAM: Oriented to herself. Insight, judgment, recent and remote memory, attention, concentration, fund of knowledge poor, consistent with her diagnosis. LABORATORY DATA: Reviewed. IMPRESSION: Unchanged from initial note. PLAN: Continue current psychotropics. Defer to Dr. Arauz for medical followup. Appetite remains poor. MAN Dominic MCNEIL MD DR: MARIVEL/yazmin JOB#: [id number] / [id number]
--- NOTE | 2016-08-11 14:15 | NUR ---
Nursing note- Hospice at bedside to mireya pt. pt. is resting comfortably at this time. will continue to monitor
--- NOTE | 2016-08-11 16:30 | DS ---
DATE OF DISCHARGE: 08/10/2016 DISCHARGE SUMMARY/PSYCHIATRIC PROGRESS NOTE This is late entry of 08/10/2016. REASON FOR ADMISSION: Please refer to the admission history for details. Briefly, the patient is an 81-year-old female originally referred to us from [facility] on account of crying, screaming for hours aftercare, being combative, refusing meds and food. SIGNIFICANT FINDINGS AND CLINICAL COURSE: Following admission, the patient was seen daily individually from a psychiatric standpoint by myself, medically followed per Dr. Gonzalez/Dr. Arauz. She remained confused, withdrawn, often refusing to eat, depressed. Adjustments were made in her psychotropics and from a psychiatric standpoint, she seemed to be doing a little better on Cymbalta 30 mg a day, BuSpar 10 t.i.d., Ativan gel 0.5 mg at 0600, Ativan gel p.r.n., Seroquel 12.5 b.i.d. and Ativan oral p.r.n. Despite the improvement, she was still intermittently yelling, agitated. Additionally, she had been treated on Monurol for a UTI. On 08/10/2016, she was found to be septic and transferred to the ICU per Dr. Arauz. She will continue all her psychotropics and we will reassess once she is medically stable prior to discharge on 08/10/2016. REVIEW OF SYSTEMS: Ambulation impaired. No CV, , pulmonary, eye, ENT system symptoms on review. Reliability poor. MENTAL STATUS EXAMINATION: Oriented to herself. Insight, judgment, recent and remote memory, attention, concentration, fund of knowledge poor, consistent with her diagnosis mentioned in my initial note. No active suicidal or homicidal ideation at discharge. FINAL DIAGNOSES: Major neurocognitive disorder, Alzheimer, vascular with depression, delusion, behavioral disturbance; anxiety disorder, unspecified; impulse control disorder, unspecified; sepsis. Rest of the diagnoses unchanged from admission. DISCHARGE MEDICATIONS: Please refer to the MRAD. DISCHARGE INSTRUCTIONS: Outpatient psychiatric followup in ICU if requested, medical followup with Dr. Arauz/Dr. Gonzalez. DEISY MCNEIL MD DR: MARIVEL/yazmin JOB#: [id number] / [id number]
[2016-08-11] MEDS: IV DEXTROSE 5 %-0.45 % NACL 1,000 ML IV SCH (16:40)
[2016-08-11] MEDS: CHOLECALCIFEROL (VITAMIN D3) 1,000 UNIT TABLET PO SCH (17:00)
--- NOTE | 2016-08-11 18:08 | HP ---
ADMIT DATE: REASON FOR ADMISSION: Dehydration, tachycardia, febrile and hypotensive. HISTORY OF PRESENT ILLNESS: This is an 81-year-old female who has been on the [facility] since 07/28/2016 where she was admitted for increased anxiety, irritability, mood lability and screaming. During that initial admission, she was found to have urinary tract infection and was severely dehydrated. She was treated for that and actually improved significantly with hydration. However, she does not eat a whole lot and so subsequently round up in the ICU again. PAST MEDICAL HISTORY: Frequent urinary tract infections, dehydration, weight loss, anxiety, dementia with behavior disturbance, chronic kidney disease stage IV, which worsens with dehydration and severe normochromic normocytic anemia. ALLERGIES: PENICILLIN AND SULFA. MEDICATIONS: Reviewed and multiple medications were held. She had been on Megace and that was discontinued during the hospitalization up on the [facility]. SOCIAL HISTORY: The patient was never , does not smoke. She follows a regular diet. She was ambulatory, but is not anymore. REVIEW OF SYSTEMS: The patient says no to every question asked. OBJECTIVE: VITAL SIGNS: Blood pressure is 113/61, pulse 72, temperature 98, respirations 20 and pulse ox is 99% on room air. GENERAL: Elderly female who is currently calm. Her skin turgor is poor. HEENT: Her tongue is dry. NECK: Supple. LUNGS: With a few crackles in the bases. CARDIOVASCULAR: Regular rhythm and rate. ABDOMEN: Soft. She grimaced when was examined 3 times, first time she grimaced, the second time she was not paying attention and did not grimace and the third time she told me to stop. EXTREMITIES: Without edema. NEUROLOGIC: She has a fine tremor, but she is somewhat sedated as she had received lorazepam topical at 738. LABORATORY DATA: Potassium 3.2, chloride 115, CO2 of 15, BUN 49, creatinine 2.3, albumin is 2.1. Her magnesium is 1.8. Urinalysis is actually negative except for 3-5 red cells. Her hemoglobin is 8, hematocrit is 24.9. ASSESSMENT: Dehydration, altered mental status, metabolic encephalopathy, hyperchloremia, metabolic acidosis, acute kidney injury on top of chronic kidney disease stage 4, severe protein malnutrition, general debility, dementia and severe normochromic normocytic anemia. PLAN: After discussion with loire who is her DPOA for medical care decisions she is going to be placed on hospice tomorrow. We will finish hydration and not aggressively treat any conditions, which may occur and she will be transferred back to [facility]. I feel this is in her best interest. SHAWNA JAMES DO DR: YUNIOR/yazmin JOB#: [id number] / [id number]
--- NOTE | 2016-08-11 19:36 | NUR ---
Patient assessed, care plan reviewed, continue to monitor.
[2016-08-11] MEDS: ACETAMINOPHEN 500 MG TABLET PO PRN (20:54)
[2016-08-11] MEDS: MELATONIN 3 MG TABLET PO SCH (20:54)
[2016-08-11] MEDS: FAMOTIDINE 20 MG TABLET PO SCH (20:54)
[2016-08-12] VITALS: BP 122/53
[2016-08-12] MEDS: IV DEXTROSE 5 %-0.45 % NACL 1,000 ML IV SCH (01:50)
[2016-08-12] MEDS: POTASSIUM CL 40MEQ D5-0.45NACL 1,000 ML IV SCH (01:50)
[2016-08-12 04:01] VITALS: BP 133/58
[2016-08-12 05:42] VITALS: BP 193/80
[2016-08-12] MEDS: LORazepam TOPICAL 0.5 MG/ML GEL TP SCH (05:44)
[2016-08-12] MEDS ORDERED: POTASSIUM CHLORIDE 20 MEQ/15 ML ORAL LIQUID. PO ONE (07:00)
[2016-08-12] MEDS: DULoxetine HCL 30 MG CAPSULE.DR PO SCH (07:54)
[2016-08-12] MEDS: busPIRone 10 MG TABLET. PO SCH (07:54)
[2016-08-12] MEDS: ASPIRIN ENTERIC COATED 81 MG TABLET.DR. PO SCH (07:54)
[2016-08-12] MEDS: QUEtiapine 25 MG TABLET. PO SCH (07:55)
[2016-08-12 08:00] VITALS: BP 159/62
[2016-08-12] MEDS ORDERED: fentaNYL 25MCG/HR 1 PATCH PATCH TD SCH (09:00)
--- NOTE | 2016-08-12 09:33 | NUR ---
Pt discharged to [facility] with [facility] in place. Report called to CLARA Palomino. Pt had no IV access at time of discharge. Pt's belongings sent with EMS staff. Pt left unit via gurney with EMS staff.
--- NOTE | 2016-08-12 23:29 | DS ---
DATE OF DISCHARGE: 08/12/2016 DISPOSITION: To hospice back to [facility]. DISCHARGE DIAGNOSES: Dehydration, resolved; metabolic encephalopathy secondary to dehydration, hyperchloremia, metabolic acidosis, acute kidney injury, chronic kidney disease stage 4, severe protein malnutrition, general debility, dementia with behavior disturbance, severe normochromic normocytic anemia and hypokalemia. HOSPITAL COURSE: An 81-year-old female who has the second trip down to the medical floor this time to the ICU with dehydration and worsening of her kidney function test. The patient was rehydrated, but remained very weak and was quite distressed over multitude of people attending to her. She ate or drank very little and did not wish to be disturbed by the staff. I had a long discussion with her lorie who is her DPOA and due to the fact that she will not eat or drink I felt that this would be an ongoing continual problem and that the patient would probably benefit from hospice services. I did advise him that this does not mean that we will be withdrawing all treatment, but that we would allow her to be comfortable and not continue to be readmitted to the hospital. Lorie was in agreement of this. PHYSICAL EXAMINATION: VITAL SIGNS: On the day of discharge, blood pressure 159/62, pulse 69, temperature 97.7, pulse ox 100% on room air and respirations 16. GENERAL: The patient is much more alert now that she is hydrated. I encouraged her to eat her breakfast, but again did not really wish to be disturbed. PLAN: To discharge back to [facility] for hospice services, which has been initiated. DISCHARGE MEDICATIONS: See MRAD. SHAWNA JAMES DO DR: YUNIOR/yazmin JOB#: [id number] / [id number]
== END 2016-08-12 09:34 | disposition hospice, inpatient (51) | DRG 871 ==
LOC: ICU 10:41
PROVIDERS: ADMIT Internal Medicine; ATTEND Internal Medicine
DX: A41.9 Sepsis, unspecified organism (principal); E43 Unspecified severe protein-calorie malnutrition; G93.41 Metabolic encephalopathy; N18.4 Chronic kidney disease, stage 4 (severe); N39.0 Urinary tract infection, site not specified; F01.51 Vascular dementia, unspecified severity, with behavioral disturbance; F02.81 Dementia in other diseases classified elsewhere, unspecified severity, with behavioral disturbance; N17.9 Acute kidney failure, unspecified; E86.0 Dehydration; G30.9 Alzheimer's disease, unspecified; D64.9 Anemia, unspecified; I12.9 Hypertensive chronic kidney disease with stage 1 through stage 4 chronic kidney disease, or unspecified chronic kidney disease; F41.9 Anxiety disorder, unspecified; F63.9 Impulse disorder, unspecified; E87.6 Hypokalemia; F32.9 Major depressive disorder, single episode, unspecified; K21.9 Gastro-esophageal reflux disease without esophagitis; Z87.440 Personal history of urinary (tract) infections; Z68.20 Body mass index [BMI] 20.0-20.9, adult
CPT/HCPCS: 36415; 80053; 81001; 83735; 85027; 87641; J2185; J3490; J7040; J7030